=== PATIENT | male | born 1940 | race Caucasian/White ===

== ENCOUNTER 2016-11-10 19:56 | Emergency (ER) | payer MEDICARE ==
[2016-11-10 20:06] VITALS: BP 177/100; PULSE 100; RESP 18; TEMP 97.1
--- NOTE | 2016-11-10 20:41 | ED ---
General Adult HPI - General Chief complaint: Recheck/Abnormal Lab/Rx Stated complaint: Nauseated Time Seen by Provider: 11/10/16 20:15 Source: patient Mode of arrival: ambulatory Limitations: no limitations - History of Present Illness Initial comments: This 76-year-old white male presents with family with the complaint of having some body irritation after eating. He states that he has a long list of foods that he cannot eat and that seemed to upset him. He has tried to avoid these regularly but will sometimes eat something wrong and developed symptoms of feeling somewhat shaky and wobbly. He states that it makes him feel like his legs are weak. He denies any actual abdominal pain, nausea, vomiting. Diarrhea , or fever. He denies any chest pain shortness of breath or arm pain. He will oftentimes take a Gas-X and Tums and this seems to help. These symptoms have been going on for over 30 years. He states that he had a bad attack today. He' s never seen a client delivery specialist. He has never had an EGD. He does relate that he has a history of hiatal hernia which is been present for many years and has not had surgical follow-up for this. He will take Zantac on occasion but has tried Prilosec in the past and this seemed to work fairly well for him. His symptoms started today after eating something and were fairly severe but her improved at this time. He denies any other complaints or modifying factors. - Related Data Previous Rx's Medication Instructions Recorded Omeprazole [PriLOSEC] 40 mg PO Q24H #30 capsule. 11/10/16 Allergies Allergy/AdvReac Type Severity Reaction Status Date / Time garlic Allergy Unknown Verified 11/10/16 20:05 Review of Systems ROS Statement: Those systems with pertinent positive or pertinent negative responses have been documented in the HPI. ROS Other: All systems not noted in ROS Statement are negative. Past Medical History Past Medical History: No Reported History History of Any Multi-Drug Resistant Organisms: None Reported Past Surgical History: No Surgical Hx Reported Past Psychological History: Anxiety, Depression Smoking Status: Never smoker Past Alcohol Use History: None Reported Past Drug Use History: None Reported General Exam - General Exam Comments Initial Comments: GENERAL: The patient is well nourished and well hydrated. VITAL SIGNS: Heart rate, blood pressure, respiratory rate reviewed as recorded in nurse's notes. EYES: Pupils are round and reactive. Extraocular movements are intact. No conjunctival / lid redness or swelling. ENT: No external evidence of injury, swelling, or ecchymosis. Airway is patent. Throat is clear. NECK: Nontender. No swelling or evidence of injury. No subcutaneous emphysema. Trachea is midline. No thyroid mass. HEART: Regular rate and rhythm. Good peripheral pulses. LUNGS/CHEST: Breath sounds clear and equal bilaterally. No rales, rhonchi, or wheezes. No ecchymosis, subcutaneous emphysema, or tenderness. ABDOMEN: Abdomen soft without tenderness. No palpable masses or organomegaly. No peritoneal signs. No abdominal wall swelling or ecchymosis. He relates having a right inguinal hernia which she's had for many years but he does not want me to examine it at this time as it is not bothering him. EXTREMITIES: No extremity tenderness. Normal muscle tone and function. No thoracolumbar tenderness. NEUROLOGIC: Sensation is grossly intact. Cranial nerve exam reveals face is symmetrical, tongue is midline, speech is clear. SKIN: No abrasions or ecchymosis is noted. No induration or masses noted. PSYCHIATRIC: Alert and oriented. Appropriate behavior and judgment. Limitations: no limitations Course Vital Signs 11/10/16 20:01 Temperature 97.1 F L Pulse Rate 100 Respiratory 18 Rate Blood Pressure 177/100 O2 Sat by Pulse 96 Oximetry Medical Decision Making - Medical Decision Making The patient was seen and examined. He is offered a workup in the emergency department but he states that his symptoms have significantly improved right now and he rates them at approximately 1 of 10 in severity. He would prefer to avoid any workup at this time. He is willing to have a prescription for Prilosec and try this medication. This felt that his symptoms very well may be related to an adverse reaction or food ALLERGY reaction.'s also felt as though he may benefit from following up with GI and/or an home health care provider. He has a normal exam currently. He does relate that he has a right inguinal hernia which is thought about getting fixed and would take a referral to a surgeon as well. It is felt as though he is stable for discharge and he leaves in no distress. Disposition Clinical Impression: Food allergy, Inguinal hernia Disposition: HOME SELF-CARE Condition: Good Instructions: Food Allergy (ED) Prescriptions: Omeprazole [PriLOSEC] 40 mg PO Q24H #30 capsule. Referrals: Dennis Lau MD [Primary Care Provider] - 1-2 days Tanya Reyes MD [STAFF PHYSICIAN] - 11/17/16 Sascha Porter MD [STAFF PHYSICIAN] - 11/17/16 Time of Disposition: 20:39
== END 2016-11-10 20:50 | disposition home or self-care (01) ==
LOC: EC 19:56
DX: T78.1XXA Other adverse food reactions, not elsewhere classified, initial encounter (principal); X58.XXXA Exposure to other specified factors, initial encounter; K40.90 Unilateral inguinal hernia, without obstruction or gangrene, not specified as recurrent; K44.9 Diaphragmatic hernia without obstruction or gangrene
CPT/HCPCS: 99283

== ENCOUNTER 2017-06-17 06:54 | Day surgery (SDC) | payer MEDICARE ==
[2017-06-11 12:26] VITALS: BMI 23.7
[~2017-06-17 06:54] MED LIST: DEXAMETHASONE SOD PHOSPHATE 10 MG/ML 1 ML VIAL IV ONE; HEPARIN SODIUM,PORCINE 5,000 UNIT/ML 1 ML VIAL SQ ONE; MIDAZOLAM 2 MG/2 ML VIAL IV PRN; ONDANSETRON 4 MG/2 ML VIAL IVP ONE; SCOPOLAMINE 1.5MG/72HR PATCH TRANSDERM ONE; ceFAZolin 2 GM in SODIUM CHLORIDE 0.9% 100 ML IVPB ONE
[2017-06-17 07:14] VITALS: TEMP 97.8
[2017-06-17] MEDS: LIDOCAINE 1% 20 ML VIAL (10MG/ML) FOR IV START INTRADERMA PRN ×2 (07:45→07:50)
[2017-06-17] MEDS: LACTATED RINGERS 1,000 ML IV SCH ×2 (07:45→07:50)
[2017-06-17] MEDS ORDERED: BUPIVACAINE-EPI 0.5%-1:200,000 10 ML VIAL SQ ONE ×2 (08:31)
[2017-06-17] MEDS ORDERED: SUCCINYLCHOLINE CHLORIDE 100 MG/5 ML SYR IV ONE (08:37)
[2017-06-17] MEDS ORDERED: fentaNYL (PF) 50 MCG/ML 2 ML AMP ONE (08:37)
[2017-06-17] MEDS ORDERED: LIDOCAINE 1% INJ 10MG/ML (20 ML MDV) ONE (08:37)
[2017-06-17] MEDS ORDERED: ROCURONIUM BROMIDE 10 MG/ML 10 ML VIAL IV ONE (08:37)
[2017-06-17] MEDS ORDERED: MIDAZOLAM 2 MG/2 ML VIAL ONE (08:37)
[2017-06-17] MEDS ORDERED: NEOSTIGMINE 1 MG/ML 10 ML VIAL ONE (08:37)
[2017-06-17] MEDS ORDERED: PROPOFOL 10 MG/ML 20 ML VIAL IV ONE (08:37)
[2017-06-17] MEDS ORDERED: GLYCOPYRROLATE 0.2 MG/ML 2 ML VIAL ONE (08:37)
[2017-06-17] MEDS ORDERED: NALOXONE 0.4 MG/ML 1 ML VIAL IV PRN (10:32)
[2017-06-17] MEDS ORDERED: traMADol 50 MG TAB PO PRN (10:32)
[2017-06-17] MEDS ORDERED: TAMSULOSIN 0.4 MG CAP.ER.24H PO STA (10:33)
--- NOTE | 2017-06-17 10:36 | P.OP ---
Date of Procedure: 06/17/17 Procedure(s) Performed: PREOPERATIVE DIAGNOSIS: Right inguinal hernia POSTOPERATIVE DIAGNOSIS: Same PROCEDURE: Laparoscopic repair right inguinal hernia with the da Rose Mary robot assistance with mesh SURGEON: Melba EBL: Minimal ANESTHESIA: General COMPLICATIONS: None OPERATIVE PROCEDURE: Patient was placed in the operating table in the supine position. The patient was placed under general anesthesia. The patient was then placed in lithotomy. The abdomen was prepped and draped in usual sterile fashion. A small curvilinear supraumbilical incision was made. The fascia was retracted anteriorly with [place] forceps. The Veress needle was inserted. The saline drop test was normal. Insufflation took place to 15 mmHg. A 12 mm trocar was then inserted. 2 additional 8 mm trochars were placed in the right upper quadrant and left upper quadrant under visualization. The robotic arms were then brought in and docked into place. The fenestrated bipolar was used in the left arm and the laparoscopic leoncio was utilized in the right arm. A 30 12 mm scope was used in the up position. The peritoneal cavity was inspected. The patient had some adhesive bands between the sigmoid colon and the anterior pelvis which were lysed sharply. The patient had a visible indirect hernia that was moderate to large in size on the right-hand side. There was only a small depression at the internal inguinal ring on the left side. This was felt to not be sizable enough to warrant repair. The peritoneum on the right hand side was incised in a horizontal fashion cephalad to the internal inguinal ring. Following that careful dissection of the preperitoneal space took place. This took place using both electrocautery, sharp dissection but primarily blunt dissection. Visualization of the pubic tubercle and Boston's ligament took place medially. Full dissection took place laterally as well. The hernia sac was fully dissected. Once we had adequate space the 15 x 10 progrip mesh was advanced into the preperitoneal space and flattened out appropriately to cover all potential hernia sites. No sutures were used. The peritoneal defect was then closed using a locking 2-0 VLok suture. A small defect in the peritoneum was closed using a short running 3-0 Vicryl stitch. The hernia sac was tacked anteriorly and medially using the Vlock suture. The pneumoperitoneum was then evacuated. The fascia at the 12 mm site was closed using a [id number] 0 Vicryl stitch. The skin of all 3 sites was closed using a 4-0 Monocryl stitch. Steri-Strips and sterile dressings were applied. DISPOSITION: Stable to recovery room
[2017-06-17] MEDS: HYDROmorphone 0.5 MG/0.5 ML SYRINGE IVP PRN ×3 (10:55→11:00)
[2017-06-17 11:19] VITALS: RESP 18
[2017-06-17] MEDS ORDERED: LACTATED RINGERS 1,000 ML IV ONE (11:21)
[2017-06-17] MEDS ORDERED: traMADol 50 MG TAB PO ONE (12:13)
[2017-06-17 12:55] VITALS: BP 146/75; PULSE 75
== END 2017-06-17 14:13 | disposition home or self-care (01) ==
LOC: OR 06:54
PROVIDERS: ATTEND Surgery
DX: K40.90 Unilateral inguinal hernia, without obstruction or gangrene, not specified as recurrent (principal); K66.0 Peritoneal adhesions (postprocedural) (postinfection)
CPT/HCPCS: 49650; C1781; J2250; J1644; J1100; J2710; J0690; J2405; J2001; J3010; J0330; J2704; J1170

== ENCOUNTER 2018-06-03 22:54 | Emergency (ER) | payer MEDICARE ==
--- NOTE | 2018-06-03 23:47 | ED ---
General Adult HPI - General Chief complaint: Abdominal Pain Stated complaint: constipation Source: patient, family Mode of arrival: wheelchair Limitations: no limitations - History of Present Illness Initial comments: Dictation was produced using [employer] dictation software. please excuse any grammatical, word or spelling errors. Chief Complaint: 78-year-old male with past medical history of constipation and inguinal hernia presents with lack of bowel movement for 4 days. History of Present Illness: Patient states he's been constipated. He has history of constipation. Last bowel movement was 4 days ago. He tried to administer an enema to himself however with no luck. Patient states that he has some pain towards his rectal area. She is not on any daily medications except for Prilosec and Motrin. She states he's been maintaining good hydration. Denies any constitutional symptoms. Denies any diffuse abdominal pain or left lower quadrant pain. No history of diverticulitis. The ROS documented in this emergency department record has been reviewed and confirmed by me. Those systems with pertinent positive or negative responses have been documented in the HPI. All other systems are other negative and/or noncontributory. - Related Data Home Medications Medication Instructions Recorded Confirmed Calcium Carbonate [Tums] 1,000 mg PO TID PRN 06/03/18 06/03/18 Ibuprofen [Motrin Ib] 200 - 400 mg PO Q6H PRN 06/03/18 06/03/18 Omeprazole [PriLOSEC] 20 mg PO DAILY PRN 06/03/18 06/03/18 Psyllium Husk 100% [Metamucil 6 gm PO DAILY 06/03/18 06/03/18 Packet] Simethicone [Gas-X] 125 mg PO QID PRN 06/03/18 06/03/18 Previous Rx's Medication Instructions Recorded Docusate [Colace] 100 mg PO DAILY #30 capsule 06/04/18 Allergies Allergy/AdvReac Type Severity Reaction Status Date / Time garlic Allergy Unknown Verified 06/03/18 23:19 Review of Systems ROS Statement: Those systems with pertinent positive or pertinent negative responses have been documented in the HPI. ROS Other: All systems not noted in ROS Statement are negative. Past Medical History Past Medical History: No Reported History Additional Past Medical History / Comment(s): Ing. Hernia; Hx of kidney stones History of Any Multi-Drug Resistant Organisms: None Reported Past Surgical History: No Surgical Hx Reported Additional Past Surgical History / Comment(s): colonoscopy; Past Anesthesia/Blood Transfusion Reactions: No Reported Reaction Past Psychological History: Anxiety, Depression Smoking Status: Never smoker Past Alcohol Use History: None Reported Past Drug Use History: None Reported - Past Family History Mother Family Medical History: No Reported History General Exam - General Exam Comments Initial Comments: PHYSICAL EXAM: General Impression: Alert and oriented x3, not in acute distress HEENT: Normocephalic atraumatic, extra-ocular movements intact, pupils equal and reactive to light bilaterally, mucous membranes moist. Cardiovascular: Heart regular rate and rhythm, S1&S2 audible, no murmurs, rubs or gallops Chest: Lungs clear to auscultation bilaterally, no rhonchi, no wheeze, no rales Abdomen: Bowel sounds present, abdomen soft, non-tender, non-distended, no organomegaly Musculoskeletal: Pulses present and equal in all extremities, no peripheral edema Motor: Power 5/5 bilaterally, no focal deficits noted Neurological: CN II-XII grossly intact, no focal motor or sensory deficits noted Skin: Intact with no visualized rashes Psych: Normal affect and mood Limitations: no limitations Course Vital Signs 06/03/18 22:56 Temperature 97.5 F L Pulse Rate 87 Respiratory 17 Rate Blood Pressure 179/92 O2 Sat by Pulse 99 Oximetry Medical Decision Making - Medical Decision Making ED course: 78-year-old male presents with constipation. Vital signs upon arrival are within acceptable limits.Laboratory evaluation obtained. CBC, BMP is unremarkable. Acute abdominal series with chest shows no acute processes. Patient was given multiple enemas without any improvement. Rectal exam was performed with palpation of multiple hard stools. Manual rectal disimpaction was performed with removal of impacted stool. Patient then instructed to have bowel movement on the toilet with normal bowel movement. Patient reevaluated and was able to have regular bowel movement. Patient's symptoms are much improved. Patient given prescription for Colace. He is instructed to take Metamucil as well. Patient advised follow-up with primary care physician for outpatient management of constipation. Patient is agreeable. - Lab Data Result diagrams: 06/03/18 23:50 06/03/18 23:50 Lab Results 06/03/18 06/03/18 Range/Units 23:50 23:50 WBC 8.2 (3.8-10.6) k/uL RBC 4.56 (4.30-5.90) m/uL Hgb 15.0 (13.0-17.5) gm/dL Hct 44.9 (39.0-53.0) % MCV 98.5 (80.0-100.0) fL MCH 32.9 (25.0-35.0) pg MCHC 33.5 (31.0-37.0) g/dL RDW 13.4 (11.5-15.5) % Plt Count 156 (150-450) k/uL Neutrophils % 81 % Lymphocytes % 13 % Monocytes % 4 % Eosinophils % 1 % Basophils % 0 % Neutrophils # 6.6 (1.3-7.7) k/uL Lymphocytes # 1.0 (1.0-4.8) k/uL Monocytes # 0.3 (0-1.0) k/uL Eosinophils # 0.1 (0-0.7) k/uL Basophils # 0.0 (0-0.2) k/uL Sodium 138 (137-145) mmol/L Potassium 4.5 (3.5-5.1) mmol/L Chloride 105 (98-107) mmol/L Carbon Dioxide 25 (22-30) mmol/L Anion Gap 8 mmol/L BUN 16 (9-20) mg/dL Creatinine 0.99 (0.66-1.25) mg/dL Est GFR (CKD-EPI)AfAm 83 (>60 ml/min/1.73 sqM) Est GFR (CKD-EPI)NonAf 72 (>60 ml/min/1.73 sqM) Glucose 105 H (74-99) mg/dL Calcium 9.7 (8.4-10.2) mg/dL Magnesium 2.1 (1.6-2.3) mg/dL Disposition Clinical Impression: Constipation Disposition: HOME SELF-CARE Condition: Good Instructions: Constipation (ED) Prescriptions: Docusate [Colace] 100 mg PO DAILY #30 capsule Is patient prescribed a controlled substance at d/c from ED?: No Referrals: Dennis Lau MD [Primary Care Provider] - 1-2 days Time of Disposition: 02:16
[2018-06-03] MEDS ORDERED: MINERAL OIL 133 ML ENEMA RECTAL STA (23:53)
[2018-06-04 00:01] LABS: Basophils % (A) 0 %; Eosinophils # (A) 0.1 k/uL (0-0.7); Eosinophils % (A) 1 %; HCT 44.9 % (39.0-53.0); Lymphocytes % (A) 13 %; MCH 32.9 pg (25.0-35.0); MCHC 33.5 g/dL (31.0-37.0); MCV 98.5 fL (80.0-100.0); Mean Platelet Volume 6.8; Monocytes # (A) 0.3 k/uL (0-1.0); Monocytes % (A) 4 %; Neutrophils # (A) 6.6 k/uL (1.3-7.7); Neutrophils % (A) 81 %; Platelet Count 156 k/uL (150-450); RBC 4.56 m/uL (4.30-5.90); RDW 13.4 % (11.5-15.5); WBC 8.2 k/uL (3.8-10.6)
--- NOTE | 2018-06-04 00:08 | XR ---
EXAMINATION TYPE: XR abdomen acute w cxr DATE OF EXAM: 06/04/2018 COMPARISON: Chest x-ray 05/13/2016 HISTORY: Abdominal pain TECHNIQUE: Chest x-ray with supine and upright abdomen FINDINGS: There is retained fecal material in the large bowel. There is no heart failure nor confluent pneumoni c infiltrate. There is interposition of the hepatic flexure of the colon. There is no evidence of a m ass. There are no pathologic calcifications over the kidneys. Heart size is normal. IMPRESSION: No active cardiopulmonary disease. Chest is stable compared to old exam. Nonacute abdomen.
[2018-06-04 00:11] LABS: Calcium 9.7 mg/dL (8.4-10.2); Magnesium 2.1 mg/dL (1.6-2.3)
[2018-06-04 00:32] LABS: Potassium 4.5 mmol/L (3.5-5.1)
[2018-06-04 02:32] VITALS: BP 137/96; PULSE 97; RESP 16; TEMP 98.4
== END 2018-06-04 02:31 | disposition home or self-care (01) ==
LOC: EC 22:54
DX: K59.00 Constipation, unspecified (principal); Z87.19 Personal history of other diseases of the digestive system; Z87.442 Personal history of urinary calculi; Z79.899 Other long term (current) drug therapy; Z91.018 Allergy to other foods; Z53.8 Procedure and treatment not carried out for other reasons
CPT/HCPCS: 36415; 74022; 80048; 83735; 85025; 99284

== ENCOUNTER → 2019-06-21 | Outpatient (CLI) | payer MEDICARE ==
--- NOTE | 2019-06-21 09:22 | XR ---
EXAMINATION TYPE: XR chest 2V DATE OF EXAM: 06/21/2019 COMPARISON: 05/13/2016 HISTORY: Congestive heart failure, cardiac arrhythmia. Physical examination. TECHNIQUE: Frontal and lateral views of the chest are obtained. FINDINGS: Pulmonary hyperinflation of chronic emphysema is again noted. There is no focal air space o pacity, pleural effusion, or pneumothorax seen. Platelike left basilar atelectasis and/or scarring is chronic and appears improved from the prior. The cardiac silhouette size is within normal limits. S lightly deep right costophrenic angle is similar to the prior. The osseous structures are intact. Mil d to moderate degenerative changes of the thoracic spine. IMPRESSION: Improving left basilar atelectasis and/or scarring and sequela of emphysema is seen on t he prior. No acute process.
[2019-06-21 18:53] LABS: Hemoglobin A1C 5.4 % (4.0-6.0)
[2019-06-21 19:14] LABS: African American GFR (CKD) 93.2 (60.0-200.0); Albumin 4.4 g/dL (3.80-4.90); Albumin/Globulin Ratio 2.1 (1.60-3.17); Anion Gap 11.7 mmol/L (4.00-12.00); BUN/Creat Ratio 14.44 Ratio (12.00-20.00); Calcium 9.4 mg/dL (8.7-10.3); Carbon Dioxide 27.3 mmol/L (21.6-31.8); Globulin 2.1 g/dL (1.6-3.3); Potassium 4.5 mmol/L (3.5-5.5); Total Bilirubin 1.2 mg/dL (0.2-1.2); Total Protein 6.5 g/dL (6.2-8.2)
== END | disposition home or self-care (01) ==
LOC: LABWHC1 08:00
PROVIDERS: ATTEND Family Medicine
DX: J98.11 Atelectasis (principal); I50.9 Heart failure, unspecified
CPT/HCPCS: 36415; 71046; 80053; 83036; 84443; 93005

== ENCOUNTER → 2019-08-03 | Outpatient (CLI) | payer MEDICARE ==
[2019-08-03 10:50] LABS: African American GFR (CKD) >90 (>60 ml/min/1.73 sqM); Blood Urea Nitrogen 14 mg/dL (9-20); Non-African American GFR(CKD) 84 (>60 ml/min/1.73 sqM)
--- NOTE | 2019-08-03 11:52 | CT ---
EXAMINATION TYPE: CT abdomen w con DATE OF EXAM: 08/03/2019 COMPARISON: None HISTORY: Upper Abdominal pain with constipation. CT DLP: 982 mGycm CONTRAST: CT scan of the abdomen is performed with Oral Contrast and with IV Contrast, patient injected with 1 00 mL of Isovue 300. FINDINGS: LUNG BASES-: No visible nodule. No infiltrate. LIVER/GB: No calcified gallstones. No space occupying hepatic lesion. Biliary tree is of normal ca liber. PANCREAS: No inflammation. No distinct mass. SPLEEN: No splenic enlargement. No lesion seen. ADRENALS: No nodule. No thickening. KIDNEYS/BLADDER: No hydronephrosis. No nephrolithiasis. Renal cystic changes noted bilaterally. No solid mass is identified. Urinary bladder grossly unremarkable. BOWEL: Normal appendix. Normal bowel caliber. No inflammation. Severe fecal stasis noted. GENITAL ORGANS: No gross abnormality. LYMPH NODES: No greater than 1cm abdominal or pelvic lymph nodes are appreciated. AORTA: No significant abnormality. OSSEOUS STRUCTURES: No significant abnormality is seen. OTHER: No significant additional abnormality is seen. IMPRESSION: 1. Severe constipation may reflect palpated pseudomass. No distinct mass identified.
== END ==
LOC: RADCTMAIN 09:36
PROVIDERS: ATTEND Family Medicine
DX: R19.00 Intra-abdominal and pelvic swelling, mass and lump, unspecified site (principal)
CPT/HCPCS: 82565; 84520; 74160; 36415; Q9967

== ENCOUNTER 2022-02-25 11:47 | Emergency (ER) | payer MEDICARE ==
[2022-02-25 12:06] VITALS: BP 100/56; PULSE 83; RESP 16; TEMP 97.8
--- NOTE | 2022-02-25 15:31 | ED ---
Back Pain HPI - General Chief Complaint: Back Pain/Injury Stated Complaint: Back pain Time Seen by Provider: 02/25/22 13:38 Source: patient, family, RN notes reviewed Limitations: no limitations - History of Present Illness Initial Comments: This is an 82-year-old male who presents to the emergency department for progressive lower back pain and weakness. This is been present for about one month and continues to get worse. He is with his daughter, who states that they were given an order for x-ray, however she is concerned that he may need more advanced imaging such as an MRI. He has become progressively weak in the bilateral lower extremities, right more than left. He does use a walker for ambulation, but feels that he is still having difficulty walking and it is get ting harder and harder to move around. He now has to manually lift his right leg to move it. He has been to physical therapy and has seen a chiropractor several times regarding these issues, and they all feel that further evaluation is warranted. Denies any saddle anesthesia or loss of bowel/bladder control. He does have some numbness and burning in both legs. He has been taking Ibuprofen, Tylenol, and Tylenol #3 with little relief. Denies any fevers, chills, sore throat, cough, dyspnea, chest pain, palpitations, abdominal pain, nausea, vomiting, diarrhea, or headaches. MD Complaint: back pain Onset/Timin -: month(s) Similar Symptoms Previously: No - Related Data Home Medications Medication Instructions Recorded Confirmed Calcium Carbonate [Tums] 1,000 mg PO TID PRN 06/03/18 06/03/18 Ibuprofen [Motrin Ib] 200 - 400 mg PO Q6H PRN 06/03/18 06/03/18 Omeprazole [PriLOSEC] 20 mg PO DAILY PRN 06/03/18 06/03/18 Psyllium Husk 100% [Metamucil 6 gm PO DAILY 06/03/18 06/03/18 Packet] Simethicone [Gas-X] 125 mg PO QID PRN 06/03/18 06/03/18 Previous Rx's Medication Instructions Recorded Docusate [Colace] 100 mg PO DAILY #30 capsule 06/04/18 HYDROcodone/APAP 5-325MG [[place] 1 tab PO Q6HR PRN 3 Days #12 tab 02/25/22 5-325] Ibuprofen 800 mg PO Q8H PRN #30 tab 02/25/22 Allergies Allergy/AdvReac Type Severity Reaction Status Date / Time garlic Allergy Unknown Verified 02/25/22 12:06 Review of Systems ROS Statement: Those systems with pertinent positive or pertinent negative responses have been documented in the HPI. ROS Other: All systems not noted in ROS Statement are negative. Past Medical History Past Medical History: No Reported History Additional Past Medical History / Comment(s): Ing. Hernia; Hx of kidney stones History of Any Multi-Drug Resistant Organisms: None Reported Past Surgical History: No Surgical Hx Reported Additional Past Surgical History / Comment(s): colonoscopy; Past Anesthesia/Blood Transfusion Reactions: No Reported Reaction Past Psychological History: Anxiety, Depression Past Alcohol Use History: None Reported Past Drug Use History: None Reported - Past Family History Mother Family Medical History: No Reported History General Exam Limitations: no limitations General appearance: alert, in no apparent distress Head exam: Present: atraumatic, normocephalic, normal inspection Respiratory exam: Present: normal lung sounds bilaterally. Absent: respiratory distress, wheezes, rales, rhonchi, stridor Cardiovascular Exam: Present: regular rate, normal rhythm, normal heart sounds. Absent: systolic murmur, diastolic murmur, rubs, gallop, clicks GI/Abdominal exam: Present: soft, normal bowel sounds. Absent: distended, tenderness, guarding, rebound, rigid Expanded Back exam: Absent: saddle anesthesia Neurological exam: Present: alert, oriented X3, CN II-XII intact Expanded Sensory exam: Lower Extremity Light Touch: Normal, Lower Extremity Temperature: Normal, LE 2 Point Discrimination: Normal Motor strength exam: RLE: 2/1, LLE: 4 Psychiatric exam: Present: normal affect, normal mood Skin exam: Present: warm, dry, intact, normal color. Absent: rash Course Vital Signs 02/25/22 12:01 Temperature 97.8 F Pulse Rate 83 Respiratory 16 Rate Blood Pressure 100/56 O2 Sat by Pulse 98 Oximetry Medical Decision Making - Medical Decision Making This is an 82 year old male who presents to the emergency department for low back pain. Given the progressive weakness, a CT scan was obtained as opposed to an x-ray. This revealed L3 collapse with transverse fracture and retropulsion of a portion of L3 causing severe spinal stenosis. There is also an adjacent paraspinal hematoma and fat stranding at the fracture level. Patient has notable weakness in the right leg and must manually lift it to move it. He is otherwise neurologically intact with full sensation and no saddle anesthesia or loss of bowel/bladder control to suggest cauda equina syndrome. Case discussed with Dr. Pena, orthopedics. He advised that because symptoms have been relatively stable and there are no acute neurological deficits or signs of cauda equina syndrome, that the patient can be discharged home with outpatient follow up with Dr. Velázquez, orthopedic spine surgeon. Patient and his daughter are comfortable going home. He lives with his children and his and has plenty of help at home. Ibuprofen 800mg and 3 day course of [place] provided for pain. His daughter will contact Dr. Velázquez's office in the morning. Return precautions reviewed in depth, the patient is instructed to return to the emergency department with any new, worsening, or concerning symptoms. Patient verbalized understanding. This case was discussed in detail with the attending ED physician. Presentation, findings, and treatment plan discussed in detail as well. - Radiology Data Radiology results: report reviewed, image reviewed Disposition Clinical Impression: L3 vertebral fracture Disposition: HOME SELF-CARE Instructions (If sedation given, give patient instructions): Lumbar Spinal Stenosis (ED) Additional Instructions: Return to the emergency department with any new, worsening, or concerning symptoms. Contact Dr. Velázquez, orthopedics, for a follow-up appointment tomorrow. Take Ibuprofen, 800mg, every 8 hours as needed for pain. If you decide to take the [place], do not take the Tylenol with codeine. Prescriptions: Ibuprofen 800 mg PO Q8H PRN #30 tab PRN Reason: Pain HYDROcodone/APAP 5-325MG [[place] 5-325] 1 tab PO Q6HR PRN 3 Days #12 tab PRN Reason: Pain Is patient prescribed a controlled substance at d/c from ED?: Yes If prescribed controlled substance>3 days was MAPS reviewed?: Prescribed <3 Days Referrals: Iqra Lee MD [Primary Care Provider] - 1-2 days Katarina Velázquez DO [Doctor of Osteopathic Medicine] - 1-2 days
--- NOTE | 2022-02-25 15:44 | CT ---
EXAMINATION TYPE: CT lumbar spine wo con, CT sacrum wo con DATE OF EXAM: 02/25/2022 3:15 PM COMPARISON: CT dated 08/03/2019 HISTORY: back pain CT DLP: 919.9 (accession [id number]), 564.9 (accession [id number]) mGycm Automated exposure control for dose reduction was used. Technique: Unenhanced CT of the lumbar spine and the sacrum was performed. Bone and soft tissue wind ow settings are submitted as well as coronal and sagittal reconstructions. FINDINGS: L3 vertebral body collapse with mainly transverse fracture involving the inferior aspect of the verte bral body, mild sclerotic changes and central height reduction of about 62%. There is retropulsion of the inferior aspect of the posterior margin of L3 vertebral body into the spinal canal, causing dorothy re spinal canal stenosis. No obvious extension of the fracture into the pedicles or the posterior arch of L3. Adjacent paraspin al hematoma and fat stranding seen at the fracture level. Mild retrolisthesis of L5 over S1. No other definite vertebral body collapse or acute fracture. Osteopenia. Multilevel opposing endplate osteoph ytosis and facet osteoarthropathy. L1-L2: Slightly degenerated disc without significant disc herniation or protrusion. No significant ce ntral spinal canal stenosis or neural foraminal stenosis. L2-L3: Mild diffuse posterior disc bulge with posterior osteophytosis and facet osteoarthropathy, cau sing no significant central spinal canal stenosis or significant neural foraminal stenosis. L3-L4: Spinal canal stenosis secondary to the fractured L3 vertebral body, associated with moderate r ight and mild left neuroforaminal stenosis. L4-L5: Diffuse posterior disc bulge associated with posterior osteophytosis, facet osteoarthropathy, mild ligamentum flavum hypertrophy and decreased AP dimension of the spinal canal, causing moderate t o severe central spinal canal stenosis and moderate left neuroforaminal stenosis. L5-S1: Degenerated disc with focal central posterior disc protrusion, associated with bilateral facet osteoarthropathy and posterior osteophytosis, causing mild central spinal canal stenosis without sig nificant neural foraminal stenosis. Questionable indentation/compression of S1 nerve roots in their l ateral recesses. Scattered arterial atherosclerotic calcification. Multiple bilateral renal cysts without gross suspic ious feature, suboptimally assessed. Atrophic pancreas. Infrarenal abdominal aortic aneurysm measurin g up to 3.5 cm. Large fecal material within the rectum with fecal loading of the visualized portion o f the colon. Mild degenerative changes of the sacroiliac joints. No definite acute sacral fracture id entified. IMPRESSION: L3 vertebral body collapse as detailed above, likely acute. Recommend clinical correlation and spine surgical consultation. No other definite lumbar vertebral or sacral fracture identified. Advanced degenerative changes of th e lumbar spine and other findings as detailed above.
[2022-02-25] MEDS ORDERED: HYDROcodone/APAP 5-325MG 1 EACH TAB PO STA (18:02)
[2022-02-25] MEDS ORDERED: IBUPROFEN 600 MG STARTER PACK 4 TAB BTL PO STA (18:02)
[2022-02-25] MEDS ORDERED: IBUPROFEN 800 MG TAB PO STA (18:02)
== END 2022-02-25 19:06 | disposition home or self-care (01) ==
LOC: EC 11:47
DX: S32.039A Unspecified fracture of third lumbar vertebra, initial encounter for closed fracture (principal); Z91.018 Allergy to other foods; X58.XXXA Exposure to other specified factors, initial encounter
CPT/HCPCS: 72131; 72192

== ENCOUNTER → 2022-07-16 | Outpatient (CLI) | payer MEDICARE, OTHER ==
[2022-07-16 13:20] VITALS: BP 138/76; PULSE 83; RESP 18; TEMP 97.8
--- NOTE | 2022-07-16 14:42 | P.PAINPG ---
PQRS Measure Charge Sheet Comment: HISTORY OF PRESENT ILLNESS: 82 yr old wheelchair bound male w son/ daughter at side as a referral from Dr Velázquez presents today w severe and chronic R sided LBP secondary to DDD, spinal stenosis, facet arthropathy without myelopathy for evaluation. Pt states pain level is at 8/10 in intensity, constant, localized in the right lower lumbar spine, sharp in character w shooting pain towards the R hip and RLE. Pain is provoked by bending. lifting. Pain is alleviated by medications (ibuprofen, Tylenol), topicals, injections in the past, ice, heat, PT 5 weeks which he is currently in, chiropractic treatments which worsened pain, massage therapy integrated with PT, laying supine and rest. PMH: HTN, OA PSH: Nephrolithiasis, Hernia Repair SH: Negative x 3 FH: DM All: See list Meds: See list REVIEW OF ORGAN SYSTEMS: CONSTITUTIONAL: No fevers or chills. No recent weight loss. NEUROLOGICAL: + numbness and tingling along the distal extremities. No seizure disorders or headaches. MUSCULOSKELETAL: + pain PSYCHIATRIC: Denies current depression or suicidal thoughts. Physical Examinations : Constitutional : Cooperative , not in acute distress . Neurologic : Cranial nerve II to XII intact. No focal neurological deficits. Psychiatric : alert & oriented x 3. Matching mood & appropriate affect. Judgment & insight intact. Musculoskeletal : Cervical Spine Motor strength in the deltoid and biceps: Normal right side. Normal Left side Motor strength biceps and the wrist extensors: Normal right side . Normal left side Motor strength in the triceps muscle: Normal right side. Normal left side Deep tendon reflexes: Normal at the biceps. Normal at Brachioradialis. Normal at triceps Vertebral body tenderness to deep palpation over Cervical facet loading test: positive bilaterally Spurling test: positive bilaterally Neck distraction test: positive bilaterally Kim sign: positive bilaterally Lumbar spine Motor strength lower extremities ,thigh and legs 5/5 Right side , 5/5 Left side Deep tendon reflexes : Normal Knee Jerk. Normal Ankle Jerk Vertebral body tenderness over L3 Lumbar facet Loading Test: positive Right / positive Left Range of motion of the lumbar spine Flexion 30 degrees, extension 10 degrees Straight Leg Raise test: Left/ Right positive at degree Reyna test: positive right / positive left. Severe tenderness over the Sacroiliac joint on the Right / Left sides Gaenslen test: positive bilaterally Seated flexion test: positive bilaterally. Sacral spine : Severe tenderness over the Sacroiliac joint: right side / left side Range of motion: Flexion of the lumbar spine <60 degrees Range of motion: Extension of the lumbar spine <20 degrees Gaenslen's Test positive Aravind's Test positive Reyna test: positive right side / left side Thigh Thrust Test Sacral Thrust Test Imaging: MRI of the lumbar spine from 03/17/22 reviewed Assessment/ Plan : Lumbar DDD, lumbar stenosis Recommendation of ROYCE L3-L4. May need a series of injections, up to 3 within a 6 mo period, for optimal pain relief. Risks, benefits of procedure discussed and patient verbalized understanding. Admits to aspirin or anti- coagulant use or medical history of diabetes. Protocol for discontinuation/ continuation of medications janine procedure discussed. All questions answered. I have spent greater than 30 minutes on patient care today. Dr Ozuna was available by phone for the evaluation of this patient. The time was used to review the medical records including relevant urine studies and Prescription history (MAPs), review of the available imaging, evaluation and examination of the patient, coordination of care with the medical staff and if applicable referring physicians, as well as creation of the medical record PQRS Narrative: Smoking Status Never smoker Home Medications: Ambulatory Orders Calcium Carbonate [Tums] 1,000 mg PO TID PRN 06/03/18 Ibuprofen [Motrin Ib] 200 - 400 mg PO Q6H PRN 06/03/18 Omeprazole [PriLOSEC] 20 mg PO DAILY PRN 06/03/18 Psyllium Husk 100% [Metamucil Packet] 6 gm PO DAILY 06/03/18 Simethicone [Gas-X] 125 mg PO QID PRN 06/03/18 Docusate [Colace] 100 mg PO DAILY #30 capsule 06/04/18 HYDROcodone/APAP 5-325MG [Ovid 5-325] 1 tab PO Q6HR PRN 3 Days #12 tab 02/25/22 Ibuprofen 800 mg PO Q8H PRN #30 tab 02/25/22 Controlled Substance Measures - Controlled Substance Measures Is patient prescribed a controlled substance at discharge?: No
== END ==
LOC: PNWHC3 12:41
PROVIDERS: ATTEND Specialist
DX: M51.36 Other intervertebral disc degeneration, lumbar region (principal); M48.061 Spinal stenosis, lumbar region without neurogenic claudication; Z79.01 Long term (current) use of anticoagulants; E11.9 Type 2 diabetes mellitus without complications; Z91.018 Allergy to other foods; Z79.4 Long term (current) use of insulin
CPT/HCPCS: 99211

== ENCOUNTER 2022-08-14 12:13 | Day surgery (SDC) | payer MEDICARE, OTHER ==
[~2022-08-14 12:13] MED LIST changes: -DEXAMETHASONE SOD PHOSPHATE 10 MG/ML 1 ML VIAL IV ONE; -HEPARIN SODIUM,PORCINE 5,000 UNIT/ML 1 ML VIAL SQ ONE; +LACTATED RINGERS 1,000 ML IV SCH; -MIDAZOLAM 2 MG/2 ML VIAL IV PRN; -ONDANSETRON 4 MG/2 ML VIAL IVP ONE; -SCOPOLAMINE 1.5MG/72HR PATCH TRANSDERM ONE; -ceFAZolin 2 GM in SODIUM CHLORIDE 0.9% 100 ML IVPB ONE
[2022-08-14 13:19] VITALS: TEMP 97.8
[2022-08-14] MEDS ORDERED: TRIAMCINOLONE ACETONIDE 40 MG/ML 1 ML VIAL ONE (13:30)
[2022-08-14] MEDS ORDERED: ROPIVACAINE 5 MG/ML 20 ML AMPULE ONE (13:30)
[2022-08-14] MEDS ORDERED: IOPAMIDOL M200 10 ML VIAL ONE (13:30)
--- NOTE | 2022-08-14 13:51 | P.PCN ---
Date of Procedure: 08/14/22 Surgeon: Franny Del Rio Pathology: none sent Condition: stable Disposition: PACU Description of Procedure: PREOPERATIVE DIAGNOSIS: 1-Lumbar radiculopathy 2- Lumber Degenerative Disc Diseases. POSTOPERATIVE DIAGNOSIS: 1-Lumbar radiculopathy. 2-Lumbar Degenerative Disc Diseases PROCEDURE 1. Lumbar epidural steroid injection under fluoroscopic guidance at the L3-4 level in the left paramedian approach. 2. Lumbar epidurogram. ANESTHESIA: Local only with lidocaine 1% EBL: Minimal PROCEDURE INDICATION: The patient with low back pain and radiculitis symptoms unresponsive to conservative treatment. Fluoroscopy was used to optimize visualization of the needle placement and to maximize safety. PROCEDURE DESCRIPTION / TECHNIQUE: The patient was seen and identified in the preoperative area. Risks, benefits, complications including but not limited to infections ,bleeding ,allergic reaction to the medications ,nerve damage and not complete pain relief , and alternatives were discussed with the patient. The patient agreed to proceed with the procedure and signed the consent. IV was started, and vital signs were stable. Patient was taken to the OR and time out was completed. The patient was placed in the prone position on procedure table and a pillow was placed under the abdomen to reduce lumbar lordosis. The lumbosacral area was prepped and draped in the usual sterile fashion with ChloraPrep.Patient was closely monitored during the procedure. Conscious sedation was used during the procedure to decrease patients anxiety. Vital signs were monitered during the entire pro cedure. Using anterior-posterior fluoroscopy, the L3-4 interlaminar space was identified and the skin over this site was marked and then infiltrated with 1% lidocaine subcutaneously. Subsequently, a 20-gauge Tuohy epidural needle was inserted and advanced toward the epidural space using the Loss of resistance to air technique and guided by AP and lateral fluoroscopy. The correct needle position in the epidural space was verified with the injection of 1 mL of the water soluble contrast dye Omnipaque 180 contrast and observing an excellent epidurogram with the epidural spread of the dye, after negative aspiration for blood and CSF and in the absence of paresthesias. Again after negative aspiration, a 8 ml mixture containing 40 mg of Kenalog and 3 ml of preservative free Normal Saline, and 1 ml of preservative free Ropivacaine 0.5% solution was injected and a washout of epidurogram was seen. Needle was withdrawn intact, skin was cleansed, and bandages were applied. patient tolerated procedure well and was transferred to PACU in stable condition.A copy of the needle placement picture was saved to the fluoroscopy machine. This epidural was difficult to place due to the patient's severe spinal spondylosis. COMPLICATIONS: None DISPOSITION / PLANS: The patient was placed in a supine position and transferred to the recovery area in a stable condition for observation. There was no evidence of lower extremity motor or sensory deficit after the procedure. Patient was discharged from the recovery room after meeting discharge criteria. Home discharge instructions were given to the patient by the staff. The patient was reexamined prior to discharge. The patient will schedule a follow up in the clinic in 2-4 weeks. Sedation time:[id number]
[2022-08-14] MEDS ORDERED: BACITRACIN OINT 1 EACH PACKET TOPICAL ONE (14:30)
--- NOTE | 2022-08-14 14:37 | FL ---
Fluoroscopy INDICATION: Pain FINDINGS: Fluoroscopy time: 48 seconds. Images obtained: 2. IMPRESSIONS: 1. Documentation of fluoroscopy.
[2022-08-14 14:43] VITALS: BP 144/80; PULSE 78; RESP 20
== END 2022-08-14 14:46 | disposition home or self-care (01) ==
LOC: ORPAIN 12:13
PROVIDERS: ATTEND Anesthesiology
DX: M51.16 Intervertebral disc disorders with radiculopathy, lumbar region (principal); I10 Essential (primary) hypertension; M19.90 Unspecified osteoarthritis, unspecified site; Z87.442 Personal history of urinary calculi; Z91.018 Allergy to other foods
CPT/HCPCS: 62323; J3301; Q9966; J2795

== ENCOUNTER → 2022-09-03 | Outpatient (CLI) | payer MEDICARE, OTHER ==
[2022-09-03 13:53] VITALS: BP 130/69; PULSE 74; RESP 18; TEMP 97.7
--- NOTE | 2022-09-03 15:34 | P.PAINPG ---
PQRS Measure Charge Sheet Comment: A 82 yr old male w daughter at side with a history of severe and chronic low back pain x several years (but worst in the last 8 mo) secondary to lumbar DDD and spondylosis with facet arthropathy without myelopathy presents today for evaluation s/p ROYCE L3-L4. Pt states he experienced 90 % pain relief x 3 days s/p procedure. Pain level is currently at 6 /10 in intensity, constant, localized in the lower lumbar spine, achy shooting towards the BL hips occasionally. Pain is provoked by standing/ walking for periods of 5 min, bending, twisting, lifting, climbing steps. Pain is alleviated with PT x 8 wks which he is currently in (he is paying out of pocket), massage integrated in PT, chiropractic treatments x 6 wks in Mar-May 2022, heat, medications (Ibuprofen, Tylenol Arthritis), use of a wheelchair for ambulation, repositioning and rest. Interventional pain procedures completed include ROYCE L3-L4 x1 Patient is currently on Ibuprofen, Tylenol Arthritis Patient denies any side effects of the medication(s), denies excessive drowsiness or sleepiness, denies suicidal ideation and reports that the current pain medication is helping to control the pain and improve activities of daily living. Patient denies any motor or sensory deficits. Patient denies any fever or night sweats, denies any change in the bowel movements or urination. Physical Examination: -Constitutional: Cooperative. Not in acute distress . - Neurologic: Cranial nerve II to XII intact. No focal neurological deficits. - Psychatric: Alert & oriented x 3. Matching mood & appropriate affect. Judgment and insight intact. - Musculoskeletal: Cervical spine: Muscle bulk/ tone/ strength in the bilateral upper extremities normal Vertebral body tenderness to palpation over Spurling test positive Distraction test positive Facet loading test positive Thoracic spine Muscle bulk / tone/ strength in the bilateral paraspinal muscles normal Vertebral body tender to palpation over Facet loading test positive Lumbar spine: Motor bulk/ tone/ strength lower extremities , thigh and legs : 5/5 Deep tendon reflexes : Normal Knee Jerk. Normal Ankle Jerk . Vertebral body tenderness to palpation over Lumbar Facet Loading Test positive TTP over BL L4-L5, L5-S1 facets Straight Leg Raise: positive at 30 degrees right side/ left side Gaenslen's Test positive Sacral spine : Severe tenderness over the Sacroiliac joint: right side / left side Range of motion: Flexion of the lumbar spine <60 degrees Range of motion: Extension of the lumbar spine <20 degrees Gaenslen's Test positive Reyna test: positive right side / left side Thigh Thrust Test Sacral Thrust Test Assessment and plan: Chronic low back pain secondary to lumbar degenerative disc disease, s pondylosis with facet arthropathy without myelopathy Recommendation of BL facet blocks of the medial branches L4-L5, L5-S1 #1. May need a series of injections, up until RFA, for optimal pain relief. Risks, benefits of procedure discussed and pt verbalized understanding. Denies anticoagulant use or medical history of diabetes. All patient questions answered I have spent less than 30 minutes on patient care today. Dr Ozuna was available by phone for the evaluation of this patient. The time was used to review the medical records including relevant urine studies and Prescription history (MAPs), review of the available imaging, evaluation and examination of the patient, coordination of care with the medical staff and if applicable referring physicians, as well as creation of the medical record PQRS Narrative: Smoking Status Never smoker Hx Alcohol Use (MH) No Home Medications: Ambulatory Orders Ibuprofen [Motrin Ib] 600 mg PO Q6H PRN 06/03/18 Simethicone [Gas-X] 125 mg PO QID PRN 06/03/18 Acetaminophen [Tylenol Arthritis] 1,300 mg PO HS 08/12/22 Donepezil HCl [Aricept] 5 mg PO DAILY 08/12/22 Magnesium 250 mg PO HS 08/12/22 Unk Multi Vitamin 1 tab PO DAILY 08/12/22 Controlled Substance Measures - Controlled Substance Measures Is patient prescribed a controlled substance at discharge?: No
== END ==
LOC: PNWHC3 13:09
PROVIDERS: ATTEND Specialist
DX: M47.816 Spondylosis without myelopathy or radiculopathy, lumbar region (principal); M51.36 Other intervertebral disc degeneration, lumbar region; G89.29 Other chronic pain; Z91.018 Allergy to other foods
CPT/HCPCS: 99211

== ENCOUNTER 2022-09-16 08:49 | Day surgery (SDC) | payer MEDICARE, OTHER ==
[2022-09-16 10:04] VITALS: TEMP 97.9
[2022-09-16] MEDS ORDERED: ROPIVACAINE 5 MG/ML 20 ML AMPULE ONE (10:06)
[2022-09-16] MEDS ORDERED: MIDAZOLAM 2 MG/2 ML VIAL ONE (10:06)
[2022-09-16] MEDS ORDERED: methylPREDNISolone ACETATE 40 MG/ML 1 ML VIAL ONE (10:06)
--- NOTE | 2022-09-16 10:27 | P.PCN ---
Date of Procedure: 09/16/22 Procedure(s) Performed: PREOPERATIVE DIAGNOSIS : 1- Lumbar spondylosis with Facet Arthropathy without myelopathy . 2- Lumber degenerative disc disease POSTOPERATIVE DIAGNOSIS: 1- Lumbar spondylosis with Facet Arthropathy without myelopathy . 2- Lumber degenerative disc disease PROCEDURE: Diagnostic bilateral L3 , L4 , and L5 medial branch block under fluoroscopy guidance(fluoroscopy images available in the radiology Department ) ( To target the facet joint between bilateral L4-5 , and L5-S1 ) ANESTHESIA:,moderate sedation with intravenous Versed 1 mg .( sedations started at 10:11, end at 10:24 ) EBL: Minimal COMPLICATION: None PROCEDURE INDICATION: Chronic low back pain secondary to Facet arthropathy unresponsive to conservative treatment. PROCEDURE DESCRIPTION: the patient was seen and identified in the preop holding area , risks and benefits and possible complications of the procedure and alternative were discussed with the patient, and the patient agreed to proceed with the procedure and signed the consent and vital signs monitored during the procedure and fluoroscopy was used to maximize the benefit and accuracy of the needle placement, and sedation was given to decrease patient anxiety, patient was taken to the procedure room and placed in prone position vital signs monitored in the back prepped with chlorhexidine X3 then under strict sterile technique using a right oblique fluoroscopy ,the junction of the transverse process and the superior articulating process of the right L3 , L4 , and L5 vertebra which corresponding to the fluoroscopy image of the eye of the Marcelo dog on the block side for the medial branches and subsequently , after local infiltration of skin and subcu tissuies with Ropivacaine 0.5 % , one mL at each level ,then 22-gauge Quincke-type needles , 3 needle was used , each one of them placed at the junction of the base of the transverse process and the superior articular process at the appropriate level, and the needle was advanced until the periosteum contacted, needle placement confirmed with AP oblique and lateral view and after appropriate needle placement confirmed, and after negative aspiration for heme and CSF and there was no paresthesia 1-1/2 mL of Ropivacaine 0.5% mixed with 20 mg Depo-Medrol , then half mL injected at each level after negative aspiration the needle subsequently removed and the same procedure repeated for the left side at left side at L3 , L4 and L5 levels. At the end of the procedure and the needles removed and a bandage applied after the skin was cleaned the cleaning solution patient taken to recovery room in stable condition and monitors in the recovery room for 20-30 minutes and discharged home in stable condition after discharge criteria met and patient will follow up with the pain clinic in 2-4 weeks
[2022-09-16] MEDS ORDERED: IV FLUID CONTINUATION 1,000 ML IV ONE (10:30)
[2022-09-16 10:33] VITALS: PULSE 82
[2022-09-16 10:49] VITALS: BP 123/76; RESP 16
--- NOTE | 2022-09-16 11:22 | FL ---
Intraoperative/procedural fluoroscopic services were provided for bilateral lumbar facet block. Total fluoroscopy time is 9 seconds with a total of 4 submitted images to PACS. Please see the operative n ote for further details.
== END 2022-09-16 11:21 | disposition home or self-care (01) ==
LOC: ORPAIN 08:49
PROVIDERS: ATTEND Specialist
DX: M47.816 Spondylosis without myelopathy or radiculopathy, lumbar region (principal); M51.36 Other intervertebral disc degeneration, lumbar region; G89.29 Other chronic pain; Z88.5 Allergy status to narcotic agent
CPT/HCPCS: 64493; 64494; 99152; J2250; J1030; J2795

== ENCOUNTER → 2022-10-02 | Outpatient (CLI) | payer MEDICARE, OTHER ==
[2022-10-02 10:27] VITALS: BP 170/78; PULSE 78; RESP 18; TEMP 98
--- NOTE | 2022-10-02 14:59 | P.PAINPG ---
PQRS Measure Charge Sheet Comment: A 82 yr old male w 2 sons at side with a history of severe and chronic LBP secondary to lumbar DDD and spondylosis with facet arthropathy without myelopathy presents today for evaluation s/p BL RFA L3-L5. Pt states he experienced 0 % pain relief s/p procedure. Pain level is provoked at 6/10 in intensity, constant, localized in the lumbar spine, sharp in character w shooting towards the BLEs. Pain is provoked by reaching, lifting and walking for periods of 10 min or more. Pain is alleviated with PT x 12 wks in Aug 2022, massage integrated w PT, heat, meds (Tyl, Ibu), topicals, repositioning, laying supine and rest. Interventional pain procedures completed include BL RFA L3-L5, ROYCE L3-L4 Patient is currently on Tyl, Ibu, Biofreeze gel Patient denies any side effects of the medication(s), denies excessive drowsiness or sleepiness, denies suicidal ideation and reports that the current pain medication is helping to control the pain and improve activities of daily living. Patient denies any motor or sensory deficits. Patient denies any fever or night sweats, denies any change in the bowel movements or urination. Physical Examination: -Constitutional: Cooperative. Not in acute distress . - Neurologic: Cranial nerve II to XII intact. No focal neurological deficits. - Psychatric: Alert & oriented x 3. Matching mood & appropriate affect. Judgment and insight intact. - Musculoskeletal: Cervical spine: Muscle bulk/ tone/ strength in the bilateral upper extremities normal Vertebral body tenderness to palpation over Spurling test positive Distraction test positive Facet loading test positive Thoracic spine Muscle bulk / tone/ strength in the bilateral paraspinal muscles normal Vertebral body tender to palpation over Facet loading test positive Lumbar spine: Motor bulk/ tone/ strength lower extremities , thigh and legs : 5/5 Deep tendon reflexes : Normal Knee Jerk. Normal Ankle Jerk . Vertebral body tenderness to palpation over Lumbar Facet Loading Test positive BL paraspinal TTP over L1-S1 Straight Leg Raise: positive at 30 degrees right side/ left side Gaenslen's Test positive Sacral spine : Severe tenderness over the Sacroiliac joint: right side / left side Range of motion: Flexion of the lumbar spine <60 degrees Range of motion: Extension of the lumbar spine <20 degrees Gaenslen's Test positive Reyna test: positive right side / left side Thigh Thrust Test Sacral Thrust Test Assessment and plan: Chronic LBP secondary to lumbar DDD, stenosis, spondylosis with facet arthropathy without myelopathy Recommendation of PT x 6 wks re: M51.36. May return to clinic in 6 wks for a re evaluation. Family agreeable to placement of SCS after review of video. Script for behavioral health provided. Recommendation of BL TPIs L1-S1. May need a series of injections for optimal pain relief. Risks, benefits of procedure discussed and patient verbalized understanding. Admits to anticoagulants use and denies medical history of diabetes. Protocol for discontinuation/continuation of medications surrounding procedure discussed. All patient questions answered I have spent less than 30 minutes on patient care today. Dr Ozuna was available by phone for the evaluation of this patient. The time was used to review the medical records including relevant urine studies and Prescription history (MAPs), review of the available imaging, evaluation and examination of the patient, coordination of care with the medical staff and if applicable referring physicians, as well as creation of the medical record - Pain Location Bilateral Lower Back Non-Pharmacological Interventions: Heat, Inactivity, Massage, Physical Therapy Pharmacological Interventions: Block, Epidural, PRN Medication, Topical Medication PQRS Narrative: Smoking Status Never smoker Hx Alcohol Use (MH) No Home Medications: Ambulatory Orders Ibuprofen [Motrin Ib] 600 mg PO Q6H PRN 06/03/18 Simethicone [Gas-X] 125 mg PO QID PRN 06/03/18 Acetaminophen [Tylenol Arthritis] 1,300 mg PO HS 08/12/22 Donepezil HCl [Aricept] 5 mg PO DAILY 08/12/22 Magnesium 250 mg PO HS 08/12/22 Unk Multi Vitamin 1 tab PO DAILY 08/12/22 Controlled Substance Measures - Controlled Substance Measures Is patient prescribed a controlled substance at discharge?: No
== END | disposition home or self-care (01) ==
LOC: PNWHC3 09:56
PROVIDERS: ATTEND Specialist
DX: M47.812 Spondylosis without myelopathy or radiculopathy, cervical region (principal); G89.4 Chronic pain syndrome; M47.26 Other spondylosis with radiculopathy, lumbar region; M48.00 Spinal stenosis, site unspecified; M54.50 Low back pain, unspecified; Z91.018 Allergy to other foods
CPT/HCPCS: 99211

== ENCOUNTER → 2022-11-20 | Outpatient (CLI) | payer MEDICARE, OTHER ==
[2022-11-20 14:30] VITALS: BP 151/75; PULSE 63; RESP 16
--- NOTE | 2022-11-20 14:32 | P.PAINPG ---
PQRS Measure Charge Sheet Comment: A 82 yr old male w son & daughter at side with a history of severe and chronic LBP secondary to lumbar DDD and spondylosis with facet arthropathy without myelopathy presents today for evaluation s/p Lumbar TPIs. Pt states he experienced 20% pain relief s/p procedure. Pain level is provoked at 7 /10 in intensity, constant, localized in the lumbar spine, sharp in character w shooting towards the RLE. Pain is provoked by weight bearing activity. Pain is alleviated with PT x 2 wks which he is currently in, home stretching regimen, massage therapy home visits, use of a wheelchair for ambulation, chiropractic treatments 2 yrs ago, heat, ice, medications (Tyl, Ibu), topicals, sitting, reclining and rest. Interventional pain procedures completed include Lumbar TPIs, BL RFA L3-L5, ROYCE L3-L4 x1 Patient is currently on Tyl, Ibu Patient denies any side effects of the medication(s), denies excessive drowsi ness or sleepiness, denies suicidal ideation and reports that the current pain medication is helping to control the pain and improve activities of daily living. Patient denies any motor or sensory deficits. Patient denies any fever or night sweats, denies any change in the bowel movements or urination. Physical Examination: -Constitutional: Cooperative. Not in acute distress . - Neurologic: Cranial nerve II to XII intact. No focal neurological deficits. - Psychatric: Alert & oriented x 3. Matching mood & appropriate affect. Judgment and insight intact. - Musculoskeletal: Cervical spine: Muscle bulk/ tone/ strength in the bilateral upper extremities normal Vertebral body tenderness to palpation over Spurling test positive Distraction test positive Facet loading test positive TTP Thoracic spine Muscle bulk / tone/ strength in the bilateral paraspinal muscles normal Vertebral body tender to palpation over Facet loading test positive TTP Lumbar spine: Motor bulk/ tone/ strength lower extremities , thigh and legs : 5/5 Deep tendon reflexes : Normal Knee Jerk. Normal Ankle Jerk . Vertebral body tenderness to palpation over L3, L4, L5 Lumbar Facet Loading Test positive Straight Leg Raise: positive at 30 degrees right side/ left side Gaenslen's Test positive Sacral spine : Severe tenderness over the Sacroiliac joint: right side / left side Range of motion: Flexion of the lumbar spine <60 degrees Range of motion: Extension of the lumbar spine <20 degrees Gaenslen's Test positive right side / left side Reyna test: positive right side / left side Thigh Thrust Test positive right side / left side Sacral Thrust Test positive right side / left side Assessment and plan: Chronic LBP secondary to lumbar DDD, spondylosis with facet arthropathy without myelopathy Recommendation of SCS trial. Obtained behavioral health eval and will schedule appt for clearance. Risks, benefits of procedure discussed and pt verbalized understanding. Admits to anticoagulant use or medical history of diabetes. Protocol for discontinuation/ continuation of medications janine procedure discussed. All questions answered. I have spent less than 30 minutes on patient care today. Dr Ozuna was available by phone for the evaluation of this patient. The time was used to review the medical records including relevant urine studies and Prescription history (MAPs), review of the available imaging, evaluation and examination of the patient, coordination of care with the medical staff and if applicable referring physicians, as well as creation of the medical record PQRS Narrative: Smoking Status Never smoker Hx Alcohol Use (MH) No Home Medications: Ambulatory Orders Ibuprofen [Motrin Ib] 600 mg PO Q6H PRN 06/03/18 Simethicone [Gas-X] 125 mg PO QID PRN 06/03/18 Acetaminophen [Tylenol Arthritis] 1,300 mg PO HS 08/12/22 Donepezil HCl [Aricept] 5 mg PO QAM 08/12/22 Magnesium 250 mg PO HS 08/12/22 Unk Multi Vitamin 1 tab PO DAILY 08/12/22 Controlled Substance Measures - Controlled Substance Measures Is patient prescribed a controlled substance at discharge?: No
== END ==
LOC: PNWHC3 13:19
PROVIDERS: ATTEND Specialist
DX: M51.36 Other intervertebral disc degeneration, lumbar region (principal); M47.816 Spondylosis without myelopathy or radiculopathy, lumbar region; G89.29 Other chronic pain; Z91.018 Allergy to other foods
CPT/HCPCS: 99211

== ENCOUNTER → 2023-01-01 | Outpatient (CLI) | payer MEDICARE, OTHER ==
--- NOTE | 2023-01-01 15:00 | P.PAINPG ---
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 Pain level is provoked at 8/10 in intensity, constant, localized in the lumbar spine, burning in character w shooting towards the BLEs. Pain is provoked by lifting, bending. Pain is alleviated with PT integrated w massage x 5 wks which he is currently in, heat, ice, medications, topical, reclining and rest. Pt completed behavioral health eval and is cleared for SCS trial. Interventional pain procedures completed include ROYCE L3-L4, BL Lumbar TPIs Patient is currently on Tyl, Ibu Patient denies any side effects of the medication(s), denies excessive drowsiness or sleepiness, denies suicidal ideation and reports that the current pain medication is helping to control the pain and improve activities of daily living. Patient denies any motor or sensory deficits. Patient denies any fever or night sweats, denies any change in the bowel movements or urination. Physical Examination: -Constitutional: Cooperative. Not in acute distress . - Neurologic: Cranial nerve II to XII intact. No focal neurological deficits. - Psychatric: Alert & oriented x 3. Matching mood & appropriate affect. Judgment and insight intact. - Musculoskeletal: Cervical spine: Muscle bulk/ tone/ strength in the bilateral upper extremities normal Vertebral body tenderness to palpation over Spurling test positive Distraction test positive Facet loading test positive TTP Thoracic spine Muscle bulk / tone/ strength in the bilateral paraspinal muscles normal Vertebral body tender to palpation over Facet loading test positive TTP Lumbar spine: Motor bulk/ tone/ strength lower extremities , thigh and legs : 5/5 Deep tendon reflexes : Normal Knee Jerk. Normal Ankle Jerk . Vertebral body tenderness to palpation over L3, L4, L5 Lumbar Facet Loading Test positive Straight Leg Raise: positive at 30 degrees right side/ left side Gaenslen's Test positive Sacral spine : Severe tenderness over the Sacroiliac joint: right side / left side Range of motion: Flexion of the lumbar spine <60 degrees Range of motion: Extension of the lumbar spine <20 degrees Gaenslen's Test positive right side / left side Reyna test: positive right side / left side Thigh Thrust Test positive right side / left side Sacral Thrust Test positive right side / left side Assessment and plan: Chronic LBP secondary to lumbar DDD, spondylosis with facet arthropathy without myelopathy Recommendation of SCS trial re: G89.4, M47.26. Risks, benefits of procedure discussed and pt verbalized understanding. Admits to anticoagulant use or medical history of diabetes. Protocol for discontinuation/ continuation of medications janine procedure discussed. All questions answered. I have spent less than 30 minutes on patient care today. Dr Ozuna was available by phone for the evaluation of this patient. The time was used to review the medical records including relevant urine studies and Prescription history (MAPs), review of the available imaging, evaluation and examination of the patient, coordination of care with the medical staff and if applicable referring physicians, as well as creation of the medical record PQRS Narrative: Smoking Status Never smoker Hx Alcohol Use (MH) No Home Medications: Ambulatory Orders Ibuprofen [Motrin Ib] 600 mg PO Q6H PRN 06/03/18 Simethicone [Gas-X] 125 mg PO QID PRN 06/03/18 Acetaminophen [Tylenol Arthritis] 1,300 mg PO HS 08/12/22 Donepezil HCl [Aricept] 5 mg PO QAM 08/12/22 Magnesium 250 mg PO HS 08/12/22 Unk Multi Vitamin 1 tab PO DAILY 08/12/22 Controlled Substance Measures - Controlled Substance Measures Is patient prescribed a controlled substance at discharge?: No
[2023-01-01 15:24] VITALS: BP 154/77; PULSE 77; RESP 18; TEMP 97.9
== END ==
LOC: PNWHC3 13:56
PROVIDERS: ATTEND Specialist
DX: M51.36 Other intervertebral disc degeneration, lumbar region (principal); M47.816 Spondylosis without myelopathy or radiculopathy, lumbar region; G89.29 Other chronic pain; Z91.018 Allergy to other foods
CPT/HCPCS: 99211

== ENCOUNTER 2023-01-23 11:07 | Day surgery (SDC) | payer MEDICARE, OTHER ==
[2023-01-22 10:44] VITALS: BMI 23.9
[~2023-01-23 11:07] MED LIST changes: +LIDOCAINE 1% (10MG/ML) FOR IV START INTRADERMA PRN
[2023-01-23 11:44] VITALS: TEMP 97
[2023-01-23] MEDS ORDERED: ROPIVACAINE 5 MG/ML 20 ML AMPULE ONE (11:46)
[2023-01-23] MEDS ORDERED: LABETALOL 5 MG/ML VIAL MDV ONE (11:46)
[2023-01-23] MEDS ORDERED: fentaNYL (PF) 50 MCG/ML 2 ML AMP ONE (11:46)
[2023-01-23] MEDS ORDERED: MIDAZOLAM 2 MG/2 ML VIAL ONE (11:46)
--- NOTE | 2023-01-23 13:00 | FL ---
EXAMINATION TYPE: FL guided pain mgmt statistic DATE OF EXAM: 01/23/2023 CLINICAL HISTORY: Back pain. TECHNIQUE: Fluoroscopy. COMPARISON: None. FINDINGS: Fluoroscopic guidance was provided during pain relief procedure performed by Dr. Ozuna . A total of 216.2 seconds of fluoroscopic time was utilized during the procedure and 3 spot images are acquired. Images acquired shows spinal stimulator inserted into the thoracic spinal canal. IMPRESSION: As Above. Total dap 0.01267 mGy x m2
[2023-01-23] MEDS ORDERED: LACTATED RINGERS 1,000 ML IV ONE (13:05)
--- NOTE | 2023-01-23 13:31 | P.PCN ---
Date of Procedure: 01/23/23 Procedure(s) Performed: PROCEDURES: 1- spinal cord stimulator trial under fluoroscopic guidance X2 lead (Fluoroscopy images stored on file in radiology department ) 2- complex programing of the spinal cord stimulator. PREOPERATIVE DIAGNOSIS: 1-lumbar spondylosis with lumbar facet arthropathy without myelopathy. 2-lumbar degenerative disc disease. POSTOPERATIVE DIAGNOSIS: 1-same as preoperative diagnoses ANESTHESIA: Monitored anesthesia care as per anesthesia department BLOOD LOSS: Minimal. COMPLICATIONS: None. PROCEDURE INDICATIONS: The patient with a history of severe intractable low back pain who failed more conservative treatment measures. Patient had multiple pain interventions procedure and she got short-term benefit from it, patient was a candidate for spinal cord stimulator and she had the psychological testing done and showed that there is no contraindication for the spinal cord stimulator, patient is not interested in having any lumbar surgery PROCEDURE DESCRIPTION: The patient was seen and identified in the preoperative area. Risks, benefits, complications, and alternatives were discussed with the patient and the family (daughter and son ). The patient agreed to proceed with the procedure and signed the consent. IV was started.Patient was taken to the operating room and time out was performed. She received 2 gram of IV for prophylactic antibitics before the start of the procedure. The Thoracic and lumbar areas were prepped with Druaprep x2 and draped in the usual sterile fashion. Using sterile gowns and gloves, and after covering the fluoroscopic camera with a sterile drape, the procedure was proceeded on with. The fluoroscopic camera was placed in the AP position, and the T12-L1 interlaminar space was identified and localized in the left paramedian trajectory with 2% lidocaine. Under fluoroscopic guidance, a 14 gauge Tuohy epidural needle from the [employer] spinal cord stimulator kit was guided into the interlaminar space. Then using the right oblique fluoroscopy, anterior-posterior fluoroscopy, and qaey-[id number] technique, the epidural space was accessed. The first lead (8 contacts leads from [employer] ) was passed and noted to be in the dorsal portion of the epidural space in the lateral view. Then using anterior-posterior view, the first lead was passed up to the top of T8 vertebra. Subsequently, a second 14 gauge Tuohy epidural needle was inserted just posterior to the first needle and was advanced toward the epidural space in a parallel direction to the first needle. Then using lateral fluoroscopy, anterior-posterior fluoroscopy, and fjtu-zi-byenxaglmg technique, the epidural space was accessed by the second needle into the same interlaminar space as the first needle. Then a second similar lead was passed and noted to be in the dorsal portion of the epidural space in the lateral view. Then using anterior-posterior view, the second lead was passed up to the top of T 9 vertebra, and was left in a parallel position to the first lead. Subsequently, the leads were tested and they gave good stimulation on the low back area and the lower extremity , then after that the needle was removed and both legs secured using 2-0 silk, and then the dressing applied durind the procedure ,we performed complex programing of the spinal cord stimulator ,we changed pulse width ,amplitude and the frequencey of the stimulation and we got good coverage for the painful area ,the parasthesia overlaped the painfull area ,patients was satesfied withe the stimulation ,we got more than 80 % decrease in the pain level COMPLICATIONS: No acute complications. COMMENTS: Each lead used had 8 contacts with a total of 16 contacts used. DISPOSITION / PLANS: The patient was placed in a supine position and transferred to the recovery area in a stable condition for observation. There was no evidence of lower extremity motor or sensory deficit after the procedure. Patient was discharged from the recovery room after meeting discharge criteria. Home discharge instructions were given to the patient by the staff. The patient was reexamined prior to discharge. note= during placement the first epidural needle was positive CSF at the L1-2 interlaminal space , the needle was withdrawn ,and I was able to access the epidural space T12-L1 , and then the lead was advanced to the epidural space without any difficulty, discussed with the patient and the family that if they have postdural puncture headache, then we have to proceed with the blood patch, otherwise if patient had no headache there is no need to do the blood patch
[2023-01-23 13:38] VITALS: RESP 20
[2023-01-23 13:55] VITALS: BP 128/67; PULSE 60
== END 2023-01-23 14:49 | disposition home or self-care (01) ==
LOC: ORPAIN 11:07
PROVIDERS: ATTEND Specialist
DX: M51.36 Other intervertebral disc degeneration, lumbar region (principal); M47.816 Spondylosis without myelopathy or radiculopathy, lumbar region; Z88.0 Allergy status to penicillin
CPT/HCPCS: 63650; J2250; J3010; J2795; C1897 ×2; C1883

== ENCOUNTER → 2023-01-30 | Outpatient (CLI) | payer MEDICARE, OTHER ==
[2023-01-30 10:47] VITALS: BP 134/65; PULSE 77; RESP 18; TEMP 97.8
--- NOTE | 2023-01-30 11:17 | P.PN ---
Subjective Progress Note Date: 01/30/23 This is followed visit for 83 years old male, with a history of severe and chronic back pain, patient diagnosed with lumbar degenerative disc disease and lumbar spondylosis with lumbar facet arthropathy, last week we have done a spinal cord stimulator trial, and patient here today for follow-up visit and the removal of the trial lead, patient is not sure how much he benefited from it, he feels that some days he felt improvement of his pain and some days he did not feel any improvement, for this reason I don't recommend to proceed with the permanent implant of the spinal cord stimulator, patient is not a surgical candidate for spine surgery, and he is currently on Tylenol and Motrin when necessary and these medication is not helping to control his pain, denies any fever or night sweats but he denies any motor or sensory deficit, today under strict sterile technique I was able to remove the spinal cord stimulator leads,x2 , tip of the leads were intact, and dressing applied. Physical Examinations : -Constitutiona : Cooperative , not in acute distress . -HEENT : nech : supple , no Lymphadenopathy , normal thyroid size . : eyes : no ptosis , no icterus, no photophobia . - neurologic : Cranial nerve II to XII intact , no focal neurological deffecit . -psychatric : alert , oriented X 3 , appropriate affect , intact judgment and insight . -Lymphatic : no Lymphadenopathy . - musculoskeltal : Lumber spine moter stegnth lower extremities ,thigh and legs 3-4/5 Right side , 3-4/5 Left side Objective - Vital Signs Vital signs: Vital Signs Temp 97.8 F 01/30/23 10:41 Pulse 77 01/30/23 10:41 Resp 18 01/30/23 10:41 BP 134/65 01/30/23 10:41 Pulse Ox 97 01/30/23 10:41 FiO2 Assessment and Plan Plan: Assessment and plan= chronic low back pain secondary to lumbar degenerative disc disease , lumbar spondylosis with lumbar facet arthropathy . Patient had spinal cord stimulator trial done last week , he is not a candidate for permanent implantable spinal cord stimulator leads Patient will be started on Ultram 50 mg half a tablet every 6 hours when necessary dispensed 60 with no refills, and patient will follow up in the pain clinic next 2 weeks for reevaluation , Time with Patient: Less than 30
--- NOTE | 2023-01-30 14:33 | P.PCN ---
Date of Procedure: 01/30/23 Procedure(s) Performed: PROCEDURES: 1-spinal cord stimulator permanent leads implant under fluoroscopic guidance X2 leads . (Fluoroscopy images stored on file in radiology department ) CPT code 17629 x2 2-implantation of spinal cord stimulator generator Cpt code 81833 PREOPERATIVE DIAGNOSIS: 1-lumbar degenerative disc disease. 2-lumbar spondylosis with lumbar facet arthropathy POSTOPERATIVE DIAGNOSIS: Same as preop diagnosis. ANESTHESIA: monitered anesthesia care as per anesthesia department BLOOD LOSS: Minimal. COMPLICATIONS: None. PROCEDURE INDICATIONS: The patient with a history of severe intractable , chronic low back pain with radiation to the lower extremities bilateraly who failed more conservative treatment measures. And she failed all interventional pain management, we discussed with the patient in the clinic the option of doing spinal cord stimulator and she was very interested risk and benefits of the procedure was discussed with the patient and she agreed with proceeding, and patient was evaluated by psychologist, and there was no contraindication to proceed with a spinal cord stimulator, patient already had successful spinal cord stimulator trial done aboute months ago and she is here today to have permanent implant. PROCEDURE DESCRIPTION: The patient was seen and identified in the preoperative area. Risks, benefits, complications, and alternatives were discussed with the patient. The patient agreed to proceed with the procedure and signed the consent. IV was started.Patient was taken to the operating room and time out was performed. The Thoracic and lumbar areas were prepped with Druaprep x2 and draped in the usual sterile fashion. Using sterile gowns and gloves, and after covering the fluoroscopic camera with a sterile drape, the procedure was proceeded on with. The fluoroscopic camera was placed in the AP position, and the L1-2 interlaminar space was identified and localized in the left paramedian trajectory with 1% lidocaine. Under fluoroscopic guidance, a 14 gauge Tuohy epidural needle from the ( [employer] ) spinal cord stimulator kit was guided into the interlaminar space. Then using the right oblique fluoroscopy, anterior-posterior fluoroscopy, and yloz-[id number]-cfbiquujkv technique, the epidural space was accessed. The first lead (8 contacts leads from [employer] ) was passed and noted to be in the dorsal portion of the epidural space in the lateral view. Then using anterior-posterior view, the first lead was passed up to the top of T9 vertebra. Subsequently, a second 14 gauge Tuohy epidural needle was inserted just posterior to the first needle and was advanced toward the epidural space in a parallel direction to the first needle. Then using lateral fluoroscopy, anterior-posterior fluoroscopy, and dznt-af-icpihqivvu technique, the epidural space was accessed by the second needle into the same interlaminar space as the first needle. Then when I tried to advance the second lead was going anteriorly to the spine, multiple attempt one position the leads posterior to the spinal cord was failed, and I tried to add accessed the epidural space through L2-3 levels, loss of resistance to air at L2-3, then again I tried to advance the second lead posterior to the spinal cord, was failed, and every time I tried to advance the lead was going anterior to the epidural space, and patient was complaining of severe muscle spasm in the lower extremity, and patient was moving significantly on the operating table, and it was not safe to continue trying to access the epidural space posteriorly, for this reason I readjusted the first lead, and I positioned the lead over all of T8 and T9 vertebra, over the midline. Subsequently, the leads were tested and they gave good stimulation on the low back area and the lower extremity bilaterally. Then incisions done in the spinal area upper lumbar and I did the dissection, created pockets for the lead, and then after that I created a pocket on the left side of the flank area to create the pocket for the generator, then the generator connected to the leads, and the generator, and under the skin and placed in the pocket, adequate hemostasis obtained, and then the incision closed using 2,O Vicryl, 3, O Vicryls, for the skin and used sahil, she will use antibiotic Cipro 500 mg every day for 1 week , patient will follow up in the pain clinic next week
== END ==
LOC: PNWHC3 10:00
PROVIDERS: ATTEND Specialist
DX: M51.36 Other intervertebral disc degeneration, lumbar region (principal); M47.816 Spondylosis without myelopathy or radiculopathy, lumbar region; G89.29 Other chronic pain; Z91.018 Allergy to other foods
CPT/HCPCS: 99211

== ENCOUNTER → 2023-02-12 | Outpatient (CLI) | payer MEDICARE, OTHER ==
[2023-02-12 11:33] VITALS: BP 142/82; PULSE 69; RESP 18; TEMP 97.9
--- NOTE | 2023-02-19 15:06 | P.PAINPG ---
Objective - Vital Signs Vital signs: Vital Signs Temp 97.9 F 02/12/23 11:18 Pulse 69 02/12/23 11:18 Resp 18 02/12/23 11:18 BP 142/82 02/12/23 11:18 Pulse Ox 97 02/12/23 11:18 FiO2 PQRS Measure Charge Sheet Mode of Arrival: Wheelchair Comment: A 83 yr old male w son & daughter at side at side with a history of severe and chronic LBP secondary to lumbar DDD and spondylosis with facet arthropathy without myelopathy presents today for evaluation s/p SCS placement. Pain level is provoked at 7 /10 in intensity, constant, localized in the lumbar spine, sharp in character without shooting pain. Pain is provoked by sitting, lifting or carrying. Pain is alleviated with a wheelchair for ambulatory assistance, medications, massages at home, PT w massage x 6 wks which he is currently in, heat, ice, repositioning and rest. SCS Trial was ineffective in reducing pain. Interventional pain procedures completed include ROYCE L3-L4, Lumbar TPIs Patient is currently on Ultramm Tyl, Ibu Patient denies any side effects of the medication(s), denies excessive drowsiness or sleepiness, denies suicidal ideation and reports that the current pain medication is helping to control the pain and improve activities of daily living. Patient denies any motor or sensory deficits. Patient denies any fever or night sweats, denies any change in the bowel movements or urination. Physical Examination: -Constitutional: Cooperative. Not in acute distress . - Neurologic: Cranial nerve II to XII intact. No focal neurological deficits. - Psychatric: Alert & oriented x 3. Matching mood & appropriate affect. Judgment and insight intact. - Musculoskeletal: Cervical spine: Muscle bulk/ tone/ strength in the bilateral upper extremities normal Vertebral body tenderness to palpation over Spurling test positive Distraction test positive Facet loading test positive TTP Thoracic spine Muscle bulk / tone/ strength in the bilateral paraspinal muscles normal Vertebral body tender to palpation over Facet loading test positive TTP Lumbar spine: Motor bulk/ tone/ strength lower extremities , thigh and legs : 5/5 Deep tendon reflexes : Normal Knee Jerk. Normal Ankle Jerk . Vertebral body tenderness to palpation over Rivera Test positive Lumbar Facet Loading Test positive Straight Leg Raise: positive at 30 degrees right side/ left side Gaenslen's Test positive Sacral spine : Severe tenderness over the Sacroiliac joint: right side / left side Range of motion: Flexion of the lumbar spine <60 degrees Range of motion: Extension of the lumbar spine <20 degrees Gaenslen's Test positive right side / left side Reyna test: positive right side / left side Thigh Thrust Test positive right side / left side Sacral Thrust Test positive right side / left side Assessment and plan: Chronic LBP secondary to lumbar DDD, spondylosis with facet arthropathy without myelopathy Chronic and current use of high-risk medication (Opioids). The patient was counseled about risk of opioid use, psychological risk associated with opioids and was orally counseled to not overuse , divert or sell medications. Pt is to store medication in a safe location. The patient is counseled against driving while using narcotic medications and also not to use alcohol or any illicit recreational drugs. Patient verbalized understanding that the lack of compliance will result in failure to renew narcotic prescription(s) as well as possible discharge from the clinic Diagnoses, prognosis and treatment options including but not limited to physical therapy, surgical interventions, interventional therapies and medication management including narcotics and adjuvant medication were discussed. All patient questions answered MAPS reviewed and it was appropriate. Prescription refill for Ultram 50,g #30 w 1 RF. Increased dose as pain is not managed w 1/2 tab QAM. I have spent less than 30 minutes on patient care today. Dr Ozuna was available by phone for the evaluation of this patient. The time was used to review the medical records including relevant urine studies and Prescription history (MAPs), review of the available imaging, evaluation and examination of the patient, coordination of care with the medical staff and if applicable referring physicians, as well as creation of the medical record PQRS Narrative: Smoking Status Never smoker Hx Alcohol Use (MH) No Home Medications: Ambulatory Orders Ibuprofen [Motrin Ib] 800 mg PO BID PRN 06/03/18 Simethicone [Gas-X] 125 mg PO QID PRN 06/03/18 Acetaminophen [Tylenol Arthritis] 1,300 mg PO HS 08/12/22 Donepezil HCl [Aricept] 5 mg PO QAM 08/12/22 Multivitamins, Thera [Multivitamin (formulary)] 1 tab PO DAILY 01/22/23 Ciprofloxacin HCl [Cipro] 250 mg PO Q12HR 7 Days #14 tab 01/30/23 traMADol HCl [Ultram] 50 mg PO Q6HR PRN 30 Days #60 tab 01/30/23 Controlled Substance Measures - Controlled Substance Measures Is patient prescribed a controlled substance at discharge?: Yes When asked, does pt state using other controlled substances?: No If prescribed controlled substance>3 days was MAPS reviewed?: Yes - Pain Location Bilateral Lower Back Non-Pharmacological Interventions: Exercise, Heat, Home Exercise, Ice, Inactivity, Massage, Physical Therapy, Position/Reposition, Sitting, Stretching Pharmacological Interventions: Block, Epidural, PRN Medication, Scheduled Medication, Topical Medication PQRS Narrative: Smoking Status Never smoker Blood Pressure 142/82 Pain Intensity [Bilateral 7 Lower Back] Scale Used Numeric (1 - 10) Hx Alcohol Use (MH) No Home Medications: Ambulatory Orders Ibuprofen [Motrin Ib] 800 mg PO BID PRN 06/03/18 Simethicone [Gas-X] 125 mg PO QID PRN 06/03/18 Acetaminophen [Tylenol Arthritis] 1,300 mg PO HS 08/12/22 Donepezil HCl [Aricept] 5 mg PO QAM 08/12/22 Multivitamins, Thera [Multivitamin (formulary)] 1 tab PO DAILY 01/22/23 Ciprofloxacin HCl [Cipro] 250 mg PO Q12HR 7 Days #14 tab 01/30/23 traMADol HCl [Ultram] 50 mg PO Q8HR PRN 30 Days #90 tab 02/12/23 Controlled Substance Measures - Controlled Substance Measures Is patient prescribed a controlled substance at discharge?: Yes
== END ==
LOC: PNWHC3 10:55
PROVIDERS: ATTEND Specialist
DX: M51.36 Other intervertebral disc degeneration, lumbar region (principal); M47.816 Spondylosis without myelopathy or radiculopathy, lumbar region; G89.29 Other chronic pain; Z91.018 Allergy to other foods
CPT/HCPCS: 99211

== ENCOUNTER → 2023-05-11 | Outpatient (CLI) | payer MEDICARE, OTHER ==
--- NOTE | 2023-05-11 17:59 | CA ---
Transthoracic Echo Report Name: Davin Simons Age: 83 Gender: M : 1940 Exam Date: 05/11/2023 15:16 Exam Location: [facility] Ht (in): 70 Wt (lb): 165 Ordering Physician: Radha Collins MD Attending/Referring Phys: Manager Of Development Angelica Bello RDCS Procedure CPT: Indications: R48.8 OTHER SYMBOLIC DYSFUNCTIONS Cardiac Hx: Technical Quality: Fair Contrast 1: Total Dose (mL): Contrast 2: Total Dose (mL): MEASUREMENTS (Male / Female) Normal Values 2D ECHO LV Diastolic Diameter PLAX 4.7 cm 4.2 - 5.9 / 3.9 - 5.3 cm LV Systolic Diameter PLAX 3.8 cm IVS Diastolic Thickness 1.1 cm 0.6 - 1.0 / 0.6 - 0.9 cm LVPW Diastolic Thickness 1.1 cm 0.6 - 1.0 / 0.6 - 0.9 cm LV Relative Wall Thickness 0.5 RV Internal Dim ED PLAX 3.3 cm LA Systolic Diameter LX 3.7 cm 3.0 - 4.0 / 2.7 - 3.8 cm LV Diastolic Volume MOD BP 92.8 cm??? 67 - 155 / 56 - 104 cm??? LV Systolic Volume MOD BP 58.3 cm??? 22 - 58 / 19 - 49 cm??? LV Ejection Fraction MOD BP 37.2 % >= 55 % LV Cardiac Index MOD BP 1684.6 cm???/min???m??? LV Diastolic Volume MOD 4C 97.2 cm??? LV Systolic Volume MOD 4C 57.1 cm??? LV Ejection Fraction MOD 4C 41.2 % LV Cardiac Index MOD 4C 1955.4 cm???/min???m??? LV Diastolic Length 4C 8.2 cm LV Systolic Length 4C 7.2 cm LV Diastolic Volume MOD 2C 95.8 cm??? LV Systolic Volume MOD 2C 57.8 cm??? LV Ejection Fraction MOD 2C 39.7 % LV Cardiac Index MOD 2C 1855.4 cm???/min???m??? LV Diastolic Length 2C 8.7 cm LV Systolic Length 2C 7.9 cm LA Volume 47.8 cm??? 18 - 58 / 22 - 52 cm??? M-MODE Aortic Root Diameter MM 3.6 cm MV E Point Septal Separation 1.3 cm AV Cusp Separation MM 2.3 cm DOPPLER AV Peak Velocity 91.1 cm/s AV Peak Gradient 3.3 mmHg AI Peak Velocity 288.2 cm/s AI Peak Gradient 33.2 mmHg AI Pressure Half Time 463.5 ms MV Area PHT 3.1 cm??? Mitral E Point Velocity 48.7 cm/s Mitral A Point Velocity 88.7 cm/s Mitral E to A Ratio 0.5 MV Deceleration Time 244.7 ms TR Peak Velocity 229.8 cm/s TR Peak Gradient 21.1 mmHg Right Ventricular Systolic Press 26.1 mmHg FINDINGS Left Ventricle Left ventricular ejection fraction is estimated at 40-45 %. Left ventricular cavity size normal. Mildly increased septal wall thickness. Moderately decreased left ventricular ejection fraction. Global hypokinesis, more noted in the apex Right Ventricle Mild right ventricular dilatation. Right ventricular systolic pressure within normal limits. Right Atrium Normal right atrial size. Left Atrium Normal left atrial size. Mitral Valve Structurally normal mitral valve. Mild mitral regurgitation. Aortic Valve Trileaflet aortic valve. Mild aortic regurgitation.aortic valve sclerosis. Tricuspid Valve Structurally normal tricuspid valve. Mild tricuspid regurgitation. Pulmonic Valve Structurally normal pulmonic valve. Mild pulmonic regurgitation. Pericardium No pericardial effusion. Aorta Normal size aortic root and proximal ascending aorta. CONCLUSIONS 1. Moderately impaired left ventricle systolic function with global hypokinesis more noted in the apex 2. Mild mitral, aortic and tricuspid regurgitation with no evidence of pulmonary hypertension Previewed by: Dr. Ilan Angulo MD (Electronically Signed) Final Date: 11 May 2023 17:58
== END | disposition home or self-care (01) ==
LOC: RADECHMAIN 15:10
PROVIDERS: ATTEND Internal Medicine
DX: R48.8 Other symbolic dysfunctions (principal); I95.89 Other hypotension; I08.3 Combined rheumatic disorders of mitral, aortic and tricuspid valves; I50.1 Left ventricular failure, unspecified
CPT/HCPCS: 93306

== ENCOUNTER → 2023-08-20 | Outpatient (CLI) | payer MEDICARE, OTHER ==
--- NOTE | 2023-08-20 14:43 | CT ---
EXAMINATION TYPE: CT brain wo con DATE OF EXAM: 08/20/2023 COMPARISON: None available. HISTORY: Altered mental status. CT DLP: 2672 mGycm Automated exposure control for dose reduction was used. FINDINGS: There is no acute intracranial hemorrhage, mass, mass effect, midline shift, extra-axial fluid collec tion or hydrocephalus. There is mild hypoattenuation the periventricular white matter which likely relates to chronic ischem ic small vessel change. Rodriguez-white distinction is otherwise intact with no acute major vessel infarct identified. There is mild mucosal thickening and a small air-fluid level within the left maxillary sinus. The vis ualized paranasal sinuses and mastoid air cells are clear. IMPRESSION: 1. No acute intracranial process. 2. Mild left maxillary sinus disease.
== END | disposition home or self-care (01) ==
LOC: RADCTMAIN 12:32
PROVIDERS: ATTEND Psychiatry & Neurology Neurology
DX: J32.0 Chronic maxillary sinusitis (principal); G20.A2 Parkinson's disease without dyskinesia, with fluctuations; G30.0 Alzheimer's disease with early onset
CPT/HCPCS: 70450

== ENCOUNTER 2023-09-03 09:26 | Inpatient (IN) | payer MEDICARE, OTHER ==
[2023-09-03] MEDS ORDERED: SODIUM CHLORIDE 0.9% 1,000 ML IV STA (09:38)
--- NOTE | 2023-09-03 09:41 | ED ---
General Adult HPI - General Chief complaint: Weakness Stated complaint: Weakness Time Seen by Provider: 09/03/23 09:27 Source: patient, EMS, RN notes reviewed Mode of arrival: EMS Limitations: altered mental status, physical limitation - History of Present Illness Initial comments: Patient is an 83-year-old male presenting to the emergency department with concerns with general weakness and decrease talking. Patient usually communicates with staff at [facility] where he comes from. Patient has limited verbal response at this time. They did question to EMS of patient may have aspirated. Patient unable to provide any further history. - Related Data Home Medications Medication Instructions Recorded Confirmed Simethicone [Gas-X] 125 mg PO ACHS PRN 06/03/18 09/03/23 Acetaminophen [Tylenol Arthritis] 650 mg PO HS 08/12/22 09/03/23 Donepezil HCl [Aricept] 10 mg PO HS 08/12/22 09/03/23 Multivitamins, Thera [Multivitamin 1 tab PO DAILY 01/22/23 09/03/23 (formulary)] Acetaminophen [Tylenol] 650 mg PO Q4H PRN 09/03/23 09/03/23 Aspirin 81 mg PO DAILY 09/03/23 09/03/23 Carbidopa-Levodopa 25-100 mg 1 tab PO BID@0800,1200 09/03/23 09/03/23 [Sinemet 25-100] Ketotifen Fumarate [Alaway] 1 drop BOTH EYES HS 09/03/23 09/03/23 Lactose-Reduced Food [Ensure Plus] 237 ml PO DAILY 09/03/23 09/03/23 Memantine [Namenda] 5 mg PO BID 09/03/23 09/03/23 Menthol [Biofreeze] 1 applic TOPICAL BID 09/03/23 09/03/23 Ocusoft Lid Scrub Plus External 1 applic BOTH EYES HS 09/03/23 09/03/23 Pad (Eyelid Cleansers) Omeprazole [PriLOSEC] 20 mg PO HS 09/03/23 09/03/23 Sucralfate [Carafate] 1 gm PO AC-TID@08,12,17 09/03/23 09/03/23 guaiFENesin [guaiFENesin Oral 200 mg PO Q4H PRN 01/04/24 01/04/24 Solution] polyethylene glycoL 3350 [Miralax] 17 gm PO DAILY 09/03/23 09/03/23 Previous Rx's Medication Instructions Recorded Ferrous Sulfate [Feosol] 325 mg PO DAILY 30 Days #30 tab 03/20/23 Allergies Allergy/AdvReac Type Severity Reaction Status Date / Time garlic Allergy "tears his Verified 09/03/23 09:38 gut up" Review of Systems ROS Statement: Those systems with pertinent positive or pertinent negative responses have been documented in the HPI. ROS Other: All systems not noted in ROS Statement are negative. Limitations: ROS unobtainable due to patients medical condition Constitutional: Denies: fever Past Medical History Past Medical History: No Reported History, Dementia Additional Past Medical History / Comment(s): Ing. Hernia; Hx of kidney stones History of Any Multi-Drug Resistant Organisms: None Reported Past Surgical History: No Surgical Hx Reported Additional Past Surgical History / Comment(s): colonoscopy; Past Anesthesia/Blood Transfusion Reactions: No Reported Reaction Past Psychological History: Anxiety, Depression Smoking Status: Unknown if ever smoked Past Alcohol Use History: None Reported Past Drug Use History: None Reported - Past Family History Mother History Unknown: Yes Family Medical History: Diabetes Mellitus General Exam Limitations: altered mental status General appearance: alert, in no apparent distress Head exam: Present: normocephalic Eye exam: Present: normal appearance ENT exam: Present: mucous membranes dry Neck exam: Present: normal inspection Respiratory exam: Present: normal lung sounds bilaterally Cardiovascular Exam: Present: regular rate. Absent: normal rhythm Extremities exam: Present: pedal edema Neurological exam: Present: altered Expanded Neurological exam: Present: protecting the airway, other (Moves all extremities to pain. Follow commands.) Patient oriented to: Present: person. Absent: place, time Eye Response: (2) open to pain Motor Response: (4) withdraws to pain Verbal Response: (3) inappropriate words Psychiatric exam: Present: flat affect Skin exam: Present: normal color Course Vital Signs 09/03/23 09:34 Temperature 97.8 F Pulse Rate 72 Respiratory 20 Rate Blood Pressure 100/64 O2 Sat by Pulse 95 Oximetry EKG Findings - EKG Results: EKG: interpreted by ERMD (Left axis. PVC present. LVH criteria. Nonspecific ventricular conduction delay.), sinus rhythm, normal ST/T Medical Decision Making - Medical Decision Making Was pt. sent in by a medical professional or institution ([facility], [facility], urgent care, hospital, or alf...) When possible be specific @ -Patient was sent from nursing facility Did you speak to anyone other than the patient for history (EMS, parent, family, police, friend...)? What history was obtained from this source @ -Son arrives and provides additional history that patient has been with decreased oral intake over the past week Did you review nursing and triage notes (agree or disagree)? Why? @ -I reviewed and agree with nursing and triage notes Were old charts reviewed (outside hosp., previous admission, EMS record, old EKG, old radiological studies, urgent care reports/EKG's, alf records)? Report findings @ -Previous chest x-ray reviewed Differential Diagnosis (chest pain, altered mental status, abdominal pain women, abdominal pain men, vaginal bleeding, weakness, fever, dyspnea, syncope, headache, dizziness, GI bleed, back pain, seizure, CVA, palpatations, mental health, musculoskeletal)? @ -Differential Weakness: Hypoglycemia, shock, sepsis, hyponatremia, anemia, infection, [place], ETOH, adverse medicine reaction, overdose, stroke, this is not meant to be an all-inclusive list. EKG interpreted by me (3pts min.). @ -As above X-rays interpreted by me (1pt min.). @ -Chest x-ray does not reveal acute abnormality CT interpreted by me (1pt min.). @ -CT brain without obvious acute abnormality U/S interpreted by me (1pt. min.). @ -None done What testing was considered but not performed or refused? (CT, X-rays, U/S, labs)? Why? @ -None What meds were considered but not given or refused? Why? @ -None Did you discuss the management of the patient with other professionals (professionals i.e. [facility] Govea, [facility], lab, RT, psych nurse, social work program coordinator, pastry sous chef, teacher, classifications officer cc/cm, director case)? Give summary @ -Case was discussed with Dr. Collins who will admit his patient Was smoking cessation discussed for >3mins.? @ -No Was critical care preformed (if so, how long)? @ -No Were there social determinants of health that impacted care today? How? (Homelessness, low income, unemployed, alcoholism, drug addiction, transp ortation, low edu. Level, literacy, decrease access to med. care, alf, rehab)? @ -No Was there de-escalation of care discussed even if they declined (Discuss DNR or withdrawal of care, Hospice)? DNR status @ -No What co-morbidities impacted this encounter? (DM, HTN, Smoking, COPD, CAD, Cancer, CVA, ARF, Chemo, Hep., AIDS, mental health diagnosis, sleep apnea, morbid obesity)? @ -None Was patient admitted / discharged? Hospital course, mention meds given and route, prescriptions, significant lab abnormalities, going to OR and other pertinent info. @ -Patient reevaluated. Family updated. Patient will be admitted with IV fluids. Son states patient is full code. Admission orders written. Undiagnosed new problem with uncertain prognosis? @ -No Drug Therapy requiring intensive monitoring for toxicity (Heparin, Nitro, Insulin, Cardizem)? @ -No Were any procedures done? @ -No Diagnosis/symptom? @ -Dehydration, weakness Acute, or Chronic, or Acute on Chronic? @ -Acute, acute Uncomplicated (without systemic symptoms) or Complicated (systemic symptoms)? @ -default Side effects of treatment? @ -No Exacerbation, Progression, or Severe Exacerbation? @ -No Poses a threat to life or bodily function? How? (Chest pain, [place], [place], pneumonia, PE, COPD, DKA, ARF, appy, cholecystitis, CVA, Diverticulitis, Homicidal, Suicidal, threat to staff... and all critical care pts) @ -No - Lab Data Result diagrams: 09/03/23 09:51 09/03/23 09:51 Lab Results 09/03/23 09/03/23 09/03/23 Range/Units 09:51 09:51 09:51 WBC 12.0 H (3.8-10.6) k/uL RBC 4.87 (4.30-5.90) m/uL Hgb 15.6 (13.0-17.5) gm/dL Hct 46.5 (39.0-53.0) % MCV 95.4 (80.0-100.0) fL MCH 32.0 (25.0-35.0) pg MCHC 33.5 (31.0-37.0) g/dL RDW 15.8 H (11.5-15.5) % Plt Count 234 (150-450) k/uL MPV 8.6 Neutrophils % (Manual) 82 % Band Neuts % (Manual) 6 % Lymphocytes % (Manual) 5 % Monocytes % (Manual) 6 % Metamyelocytes % 1 % Neutrophils # (Manual) 10.50 H (1.3-7.7) k/uL Lymphocytes # (Manual) 0.60 L (1.0-4.8) k/uL Monocytes # (Manual) 0.72 (0-1.0) k/uL Metamyelocytes # (Man) 0.12 H (0) k/uL Nucleated RBCs 0 (0-0) /100 WBC Manual Slide Review Performed PT 12.0 (10.0-12.5) sec INR 1.1 (<1.2) APTT 24.4 (22.0-30.0) sec Sodium (137-145) mmol/L Potassium (3.5-5.1) mmol/L Chloride (98-107) mmol/L Carbon Dioxide (22-30) mmol/L Anion Gap mmol/L BUN (9-20) mg/dL Creatinine (0.66-1.25) mg/dL Est GFR (CKD-EPI)AfAm (>60 ml/min/1.73 sqM) Est GFR (CKD-EPI)NonAf (>60 ml/min/1.73 sqM) Glucose (74-99) mg/dL Plasma Lactic Acid Jose Antonio (0.7-2.0) mmol/L Calcium (8.4-10.2) mg/dL Magnesium (1.6-2.3) mg/dL Total Bilirubin (0.2-1.3) mg/dL AST (17-59) U/L ALT (4-49) U/L Alkaline Phosphatase (38-126) U/L Troponin I (0.000-0.034) ng/mL Total Protein (6.3-8.2) g/dL Albumin (3.5-5.0) g/dL Urine Color Yellow Urine Appearance Clear (Clear) Urine pH 6.0 (5.0-8.0) Ur Specific Beaver 1.028 (1.001-1.035) Urine Protein Trace H (Negative) Urine Glucose (UA) Negative (Negative) Urine Ketones 2+ H (Negative) Urine Blood Negative (Negative) Urine Nitrite Negative (Negative) Urine Bilirubin Negative (Negative) Urine Urobilinogen <2.0 (<2.0) mg/dL Ur Leukocyte Esterase Negative (Negative) Influenza Type A (PCR) (Not Detectd) Influenza Type B (PCR) (Not Detectd) RSV (PCR) (Not Detectd) SARS-CoV-2 (PCR) (Not Detectd) 09/03/23 09/03/23 09/03/23 Range/Units 09:51 09:51 09:51 WBC (3.8-10.6) k/uL RBC (4.30-5.90) m/uL Hgb (13.0-17.5) gm/dL Hct (39.0-53.0) % MCV (80.0-100.0) fL MCH (25.0-35.0) pg MCHC (31.0-37.0) g/dL RDW (11.5-15.5) % Plt Count (150-450) k/uL MPV Neutrophils % (Manual) % Band Neuts % (Manual) % Lymphocytes % (Manual) % Monocytes % (Manual) % Metamyelocytes % % Neutrophils # (Manual) (1.3-7.7) k/uL Lymphocytes # (Manual) (1.0-4.8) k/uL Monocytes # (Manual) (0-1.0) k/uL Metamyelocytes # (Man) (0) k/uL Nucleated RBCs (0-0) /100 WBC Manual Slide Review PT (10.0-12.5) sec INR (<1.2) APTT (22.0-30.0) sec Sodium 140 (137-145) mmol/L Potassium 3.9 (3.5-5.1) mmol/L Chloride 110 H (98-107) mmol/L Carbon Dioxide 20 L (22-30) mmol/L Anion Gap 10 mmol/L BUN 52 H (9-20) mg/dL Creatinine 0.73 (0.66-1.25) mg/dL Est GFR (CKD-EPI)AfAm >90 (>60 ml/min/1.73 sqM) Est GFR (CKD-EPI)NonAf 85 (>60 ml/min/1.73 sqM) Glucose 120 H (74-99) mg/dL Plasma Lactic Acid Jose Antonio 2.1 H* (0.7-2.0) mmol/L Calcium 8.2 L (8.4-10.2) mg/dL Magnesium 2.6 H (1.6-2.3) mg/dL Total Bilirubin 0.7 (0.2-1.3) mg/dL AST 46 (17-59) U/L ALT 25 (4-49) U/L Alkaline Phosphatase 95 (38-126) U/L Troponin I <0.012 (0.000-0.034) ng/mL Total Protein 5.1 L (6.3-8.2) g/dL Albumin 2.5 L (3.5-5.0) g/dL Urine Color Urine Appearance (Clear) Urine pH (5.0-8.0) Ur Specific Beaver (1.001-1.035) Urine Protein (Negative) Urine Glucose (UA) (Negative) Urine Ketones (Negative) Urine Blood (Negative) Urine Nitrite (Negative) Urine Bilirubin (Negative) Urine Urobilinogen (<2.0) mg/dL Ur Leukocyte Esterase (Negative) Influenza Type A (PCR) (Not Detectd) Influenza Type B (PCR) (Not Detectd) RSV (PCR) (Not Detectd) SARS-CoV-2 (PCR) (Not Detectd) 09/03/23 Range/Units 09:51 WBC (3.8-10.6) k/uL RBC (4.30-5.90) m/uL Hgb (13.0-17.5) gm/dL Hct (39.0-53.0) % MCV (80.0-100.0) fL MCH (25.0-35.0) pg MCHC (31.0-37.0) g/dL RDW (11.5-15.5) % Plt Count (150-450) k/uL MPV Neutrophils % (Manual) % Band Neuts % (Manual) % Lymphocytes % (Manual) % Monocytes % (Manual) % Metamyelocytes % % Neutrophils # (Manual) (1.3-7.7) k/uL Lymphocytes # (Manual) (1.0-4.8) k/uL Monocytes # (Manual) (0-1.0) k/uL Metamyelocytes # (Man) (0) k/uL Nucleated RBCs (0-0) /100 WBC Manual Slide Review PT (10.0-12.5) sec INR (<1.2) APTT (22.0-30.0) sec Sodium (137-145) mmol/L Potassium (3.5-5.1) mmol/L Chloride (98-107) mmol/L Carbon Dioxide (22-30) mmol/L Anion Gap mmol/L BUN (9-20) mg/dL Creatinine (0.66-1.25) mg/dL Est GFR (CKD-EPI)AfAm (>60 ml/min/1.73 sqM) Est GFR (CKD-EPI)NonAf (>60 ml/min/1.73 sqM) Glucose (74-99) mg/dL Plasma Lactic Acid Jose Antonio (0.7-2.0) mmol/L Calcium (8.4-10.2) mg/dL Magnesium (1.6-2.3) mg/dL Total Bilirubin (0.2-1.3) mg/dL AST (17-59) U/L ALT (4-49) U/L Alkaline Phosphatase (38-126) U/L Troponin I (0.000-0.034) ng/mL Total Protein (6.3-8.2) g/dL Albumin (3.5-5.0) g/dL Urine Color Urine Appearance (Clear) Urine pH (5.0-8.0) Ur Specific Beaver (1.001-1.035) Urine Protein (Negative) Urine Glucose (UA) (Negative) Urine Ketones (Negative) Urine Blood (Negative) Urine Nitrite (Negative) Urine Bilirubin (Negative) Urine Urobilinogen (<2.0) mg/dL Ur Leukocyte Esterase (Negative) Influenza Type A (PCR) Not Detected (Not Detectd) Influenza Type B (PCR) Not Detected (Not Detectd) RSV (PCR) Not Detected (Not Detectd) SARS-CoV-2 (PCR) Not Detected (Not Detectd) Disposition Clinical Impression: Weakness, Dehydration Disposition: ADMITTED IP TO THIS HOSP Is patient prescribed a controlled substance at d/c from ED?: No Referrals: Radha Collins MD [Primary Care Provider] - 1-2 days Time of Disposition: 11:16
[2023-09-03 10:11] LABS: HCT 46.5 % (39.0-53.0); HGB 15.6 gm/dL (13.0-17.5); MCHC 33.5 g/dL (31.0-37.0); MCV 95.4 fL (80.0-100.0); Mean Platelet Volume 8.6; Platelet Count 234 k/uL (150-450); RBC 4.87 m/uL (4.30-5.90); RDW 15.8 % (11.5-15.5)
--- NOTE | 2023-09-03 10:22 | XR ---
EXAMINATION TYPE: XR chest 2V DATE OF EXAM: 09/03/2023 10:18 AM CLINICAL INDICATION:Male, 83 years old with history of Weakness; H COMPARISON: Chest radiographs from 03/12/2023. TECHNIQUE: XR chest 2V Frontal and lateral views of the chest. FINDINGS: Lungs/Pleura: Lung glands, There is flattening of the diaphragm with increased lucency of the lungs. No evidence of pneumothorax, pleural effusion or focal consolidation. Pulmonary vascularity: Unremarkable. Heart/mediastinum: Cardiomediastinal silhouette is unremarkable. Musculoskeletal: No acute osseous pathology. IMPRESSION: 1. Low lung volumes, No acute cardiopulmonary disease process. 2. COPD changes.
[2023-09-03 10:23] LABS: INR 1.1 (<1.2); Partial Thromboplastin Time 24.4 sec (22.0-30.0)
--- NOTE | 2023-09-03 10:31 | CT ---
EXAMINATION TYPE: CT brain wo con DATE OF EXAM: 09/03/2023 HISTORY: weakness CT DLP: 1200.4 mGycm. Automated Exposure Control for Dose Reduction was Utilized. TECHNIQUE: CT scan of the head is performed without contrast. COMPARISON: Prior CT brain August 20, 2023. FINDINGS: There is no acute intracranial hemorrhage or midline shift identified. There is mild to m oderate diffuse ventricular and sulcal prominence redemonstrated. There is mild to moderate low-atte nuation in the periventricular white matter redemonstrated. The globes are intact and the visualized sinuses are clear. IMPRESSION: No acute intracranial hemorrhage or midline shift. There is [id number] diffuse ag e-related cerebral atrophy and chronic small vessel ischemic change redemonstrated. No significant c hange from prior.
[2023-09-03 10:36] LABS: ALT 25 U/L (4-49); AST 46 U/L (17-59); African American GFR (CKD) >90 (>60 ml/min/1.73 sqM); Albumin 2.5 g/dL (3.5-5.0); Alkaline Phosphatase 95 U/L (38-126); Anion Gap 10 mmol/L; Blood Urea Nitrogen 52 mg/dL (9-20); Calcium 8.2 mg/dL (8.4-10.2); Carbon Dioxide 20 mmol/L (22-30); Chloride 110 mmol/L (98-107); Glucose 120 mg/dL (74-99); Magnesium 2.6 mg/dL (1.6-2.3); Non-African American GFR(CKD) 85 (>60 ml/min/1.73 sqM); Potassium 3.9 mmol/L (3.5-5.1); Sodium 140 mmol/L (137-145); Total Bilirubin 0.7 mg/dL (0.2-1.3); Total Protein 5.1 g/dL (6.3-8.2)
[2023-09-03 10:45] LABS: Band Neutrophils % 6 %; Metamyelocytes # (M) 0.12 k/uL (0); Metamyelocytes % 1 %; Monocytes # (M) 0.72 k/uL (0-1.0); Neutrophils % (M) 82 %; Nucleated Red Blood Cells 0 /100 WBC (0-0); Total Cells Counted 100
[2023-09-03 10:51] LABS: Appearance,Urine Clear (Clear); Bilirubin,Urine Negative (Negative); Blood,Urine Negative (Negative); Color,Urine Yellow; Glucose,Urine (UA) Negative (Negative); Ketones,Urine 2+ (Negative); Leukocyte Esterase,Urine Negative (Negative); Nitrite,Urine Negative (Negative); Protein,Urine Trace (Negative); Specific Gravity,Urine 1.028 (1.001-1.035); Urobilinogen,Urine <2.0 mg/dL (<2.0)
[2023-09-03] MEDS ORDERED: NALOXONE 0.4 MG/ML 1 ML VIAL IV PRN (11:19)
[2023-09-03] MEDS ORDERED: PANTOPRAZOLE 40 MG/10 ML VIAL IV SCH (11:30)
[2023-09-03] MEDS: SODIUM CHLORIDE 0.9% 1,000 ML IV SCH ×2 (12:36→18:27)
[2023-09-03] MEDS ORDERED: ACETAMINOPHEN TAB 325 MG TAB PO PRN (15:05)
[2023-09-03] MEDS ORDERED: SIMETHICONE 80 MG CHEWABLE PO PRN (15:05)
[2023-09-03] MEDS ORDERED: guaiFENesin SYRUP 100MG/5ML 200 MG/10 ML CUP PO PRN (15:05)
[2023-09-03] MEDS: FERROUS SULFATE 325 MG TAB PO SCH (15:59)
[2023-09-03] MEDS: ASPIRIN 81 MG PO SCH (15:59)
[2023-09-03] MEDS: SUCRALFATE 1 GM TAB PO SCH (16:10)
[2023-09-03] MEDS ORDERED: METHYL SALICYLATE-MENTHOL OINT (3 OZ TUBE) TOPICAL PRN (21:00)
[2023-09-03] MEDS: ACETAMINOPHEN TAB 325 MG TAB PO SCH (22:38)
[2023-09-03] MEDS: KETOTIFEN 0.025% OPHTH DROPS 5 ML BTL BOTH EYES SCH (22:39)
[2023-09-03] MEDS: DONEPEZIL 10 MG TAB PO SCH (22:39)
[2023-09-03] MEDS: [UNRECOGNIZED DRUG - OTHER] BOTH EYES SCH (22:40)
[2023-09-03] MEDS: PANTOPRAZOLE 40 MG TABLET PO SCH (22:40)
[2023-09-03] MEDS: MEMANTINE 5 MG TAB PO SCH (22:40)
[2023-09-04] MEDS: SODIUM CHLORIDE 0.9% 1,000 ML IV SCH (07:34)
[2023-09-04] MEDS: CARBIDOPA-LEVODOPA 25-100 MG 1 EACH TAB PO SCH ×2 (08:36→12:07)
[2023-09-04] MEDS: SUCRALFATE 1 GM TAB PO SCH ×3 (08:36→16:33)
[2023-09-04] MEDS: FERROUS SULFATE 325 MG TAB PO SCH (08:37)
[2023-09-04] MEDS: ASPIRIN 81 MG PO SCH (08:37)
[2023-09-04] MEDS: MEMANTINE 5 MG TAB PO SCH ×2 (08:37→19:55)
[2023-09-04] MEDS: MULTIVITAMINS, THERA 1 EACH TAB PO SCH (08:37)
[2023-09-04] MEDS: polyethylene glycoL 3350 17 GM POWD.PACK PO SCH (08:37)
[2023-09-04] MEDS: ENOXAPARIN 40 MG/0.4 ML SYRINGE SQ SCH (08:47)
[2023-09-04 08:51] LABS: ALT 34 U/L (10-49); AST 35 U/L (14-35); Albumin 2.5 g/dL (3.8-4.9); Albumin/Globulin Ratio 1.19 Ratio (1.60-3.17); Alkaline Phosphatase 76 U/L (41-126); BUN/Creat Ratio 52.75 Ratio (12.00-20.00); Blood Urea Nitrogen 42.2 mg/dL (9.0-27.0); Calcium 8.3 mg/dL (8.7-10.3); Carbon Dioxide 24.3 mmol/L (21.6-31.8); Chloride 112 mmol/L (96-109); Globulin 2.1 g/dL (1.6-3.3); Glucose 104 mg/dL (70-110); Magnesium 2.5 mg/dL (1.5-2.4); Potassium 3.9 mmol/L (3.5-5.5); Sodium 148 mmol/L (135-145); Total Bilirubin 0.5 mg/dL (0.3-1.2); Total Protein 4.6 g/dL (6.2-8.2)
[2023-09-04] MEDS ORDERED: NON FORMULARY DRUG (Lactose-Reduced Food [Ensure Plus] 237 ML Ml) PO SCH (09:00)
--- NOTE | 2023-09-04 09:11 | P.HPIM ---
History of Present Illness H&P Date: 09/03/23 Davin Simons, is an 83-year-old male patient, resident of a halfway, who presented to [facility] emergency room, with a chief complaint of generalized weakness and acute mental status changes, patient was noticed to be somnolent, and nonverbal at the halfway, he was sent to emergency room for evaluation. He was evaluated in the emergency room vital examination on presentation revealed a temperature of 97.8 pulse 72 respiration 20 blood pressure 100/64 pulse ox 95% on room air Laboratory data revealed a white blood count of 12.0 hemoglobin 15.6 platelet count 234 sodium 140 potassium 3.9 chloride 110 CO2 20 BUN 52 creatinine 0.73 Testing in the emergency room revealed chest x-ray done in the emergency room revealed lower lung volumes no acute cardiopulmonary disease process and COPD changes, EKG done in the emergency room revealed sinus rhythm with occasional ventricular premature complexes and moderate intraventricular conduction delay, computed tomography scan of the brain revealed no acute intracranial hemorrhage or midline shift. Patient was admitted to medical floor for further evaluation and treatment Past Medical History Past Medical History: No Reported History, Dementia Additional Past Medical History / Comment(s): Ing. Hernia; Hx of kidney stones History of Any Multi-Drug Resistant Organisms: None Reported Past Surgical History: No Surgical Hx Reported Additional Past Surgical History / Comment(s): colonoscopy; Past Anesthesia/Blood Transfusion Reactions: No Reported Reaction Past Psychological History: Anxiety, Depression Smoking Status: Unknown if ever smoked Past Alcohol Use History: None Reported Past Drug Use History: None Reported - Past Family History Mother History Unknown: Yes Family Medical History: Diabetes Mellitus Medications and Allergies Home Medications Medication Instructions Recorded Confirmed Type Simethicone [Gas-X] 125 mg PO ACHS PRN 06/03/18 09/03/23 History Acetaminophen [Tylenol Arthritis] 650 mg PO HS 08/12/22 09/03/23 History Donepezil HCl [Aricept] 10 mg PO HS 08/12/22 09/03/23 History Multivitamins, Thera [Multivitamin 1 tab PO DAILY 01/22/23 09/03/23 History (formulary)] Ferrous Sulfate [Feosol] 325 mg PO DAILY 30 Days #30 tab 03/20/23 09/03/23 Rx Acetaminophen [Tylenol] 650 mg PO Q4H PRN 09/03/23 09/03/23 History Aspirin 81 mg PO DAILY 09/03/23 09/03/23 History Carbidopa-Levodopa 25-100 mg 1 tab PO BID@0800,1200 09/03/23 09/03/23 History [Sinemet 25-100] Ketotifen Fumarate [Alaway] 1 drop BOTH EYES HS 09/03/23 09/03/23 History Lactose-Reduced Food [Ensure Plus] 237 ml PO DAILY 09/03/23 09/03/23 History Memantine [Namenda] 5 mg PO BID 09/03/23 09/03/23 History Menthol [Biofreeze] 1 applic TOPICAL BID 09/03/23 09/03/23 History Ocusoft Lid Scrub Plus External 1 applic BOTH EYES HS 09/03/23 09/03/23 History Pad (Eyelid Cleansers) Omeprazole [PriLOSEC] 20 mg PO HS 09/03/23 09/03/23 History Sucralfate [Carafate] 1 gm PO AC-TID@08,12,17 09/03/23 09/03/23 History guaiFENesin [guaiFENesin Oral 200 mg PO Q4H PRN 09/03/23 09/03/23 History Solution] polyethylene glycoL 3350 [Miralax] 17 gm PO DAILY 09/03/23 09/03/23 History Allergies Allergy/AdvReac Type Severity Reaction Status Date / Time garlic Allergy "tears his Verified 09/03/23 09:38 gut up" Physical Exam Vitals: Vital Signs Temp Pulse Resp BP Pulse Ox 09/03/23 14:43 98.2 F 85 18 122/74 97 09/03/23 09:34 97.8 F 72 20 100/64 95 Intake and Output 09/03/23 09/03/23 09/03/23 06:59 14:59 22:59 Other: Weight 70.307 kg In general patient is somnolent and nonverbal in no apparent distress HEENT head normocephalic and atraumatic Neck is supple no JVD no goiter no lymphadenopathy no carotid bruit Chest examination is clear to auscultation no crackles no wheezing Cardiac exam reveals regular heart sounds S1 and S2 no gallops no murmurs Abdomen is soft nontender no organomegaly with normal bowel sounds Extremity exam reveals no edema no cyanosis or clubbing Neurological examination reveals no gross focal deficits Results CBC & Chem 7: 09/03/23 09:51 09/03/23 09:51 Labs: Abnormal Lab Results - Last 24 Hours (Table) 09/03/23 09/03/23 09/03/23 Range/Units 09:51 09:51 09:51 WBC 12.0 H (3.8-10.6) k/uL RDW 15.8 H (11.5-15.5) % Neutrophils # (Manual) 10.50 H (1.3-7.7) k/uL Lymphocytes # (Manual) 0.60 L (1.0-4.8) k/uL Metamyelocytes # (Man) 0.12 H (0) k/uL Chloride 110 H (98-107) mmol/L Carbon Dioxide 20 L (22-30) mmol/L BUN 52 H (9-20) mg/dL Glucose 120 H (74-99) mg/dL Plasma Lactic Acid Jose Antonio (0.7-2.0) mmol/L Calcium 8.2 L (8.4-10.2) mg/dL Magnesium 2.6 H (1.6-2.3) mg/dL Total Protein 5.1 L (6.3-8.2) g/dL Albumin 2.5 L (3.5-5.0) g/dL Urine Protein Trace H (Negative) Urine Ketones 2+ H (Negative) 09/03/23 09/03/23 Range/Units 09:51 12:48 WBC (3.8-10.6) k/uL RDW (11.5-15.5) % Neutrophils # (Manual) (1.3-7.7) k/uL Lymphocytes # (Manual) (1.0-4.8) k/uL Metamyelocytes # (Man) (0) k/uL Chloride (98-107) mmol/L Carbon Dioxide (22-30) mmol/L BUN (9-20) mg/dL Glucose (74-99) mg/dL Plasma Lactic Acid Ojse Antonio 2.1 H* 2.1 H* (0.7-2.0) mmol/L Calcium (8.4-10.2) mg/dL Magnesium (1.6-2.3) mg/dL Total Protein (6.3-8.2) g/dL Albumin (3.5-5.0) g/dL Urine Protein (Negative) Urine Ketones (Negative) Assessment and Plan Plan: Acute mental status changes Dehydration with acute kidney injury Underlying history of Parkinson disease Underlying history of peptic ulcer disease Underlying history of hypertension Underlying history of dementia Underlying history of anemia At this time patient is admitted to medical floor He was started on gentle IV hydration Home medications reviewed and reordered For DVT prophylaxis subcu Lovenox Will recheck labs in a.m.
[2023-09-04 09:23] LABS: Basophils # (M) 0 X 10*3/uL (0.00-0.10); HCT 44.1 % (39.6-50.0); HGB 14.7 g/dL (13.0-17.0); MCH 30.8 pg (27.0-32.0); MCHC 33.3 g/dL (32.0-37.0); MCV 92.3 FL (80.0-97.0); NRBC Per 100 WBC 0.06 X 10*3/uL (0.00-0.01); Platelet Count 250 X 10*3/uL (140-440); RBC 4.78 X 10*6/uL (4.40-5.60); RDW 18.4 % (11.5-14.5); WBC 10.15 X 10*3/uL (4.50-10.00)
--- NOTE | 2023-09-04 10:39 | P.PN ---
Subjective Progress Note Date: 09/04/23 Davin Simons, is an 83-year-old male patient, resident of a senior care, who presented to [facility] emergency room, with a chief complaint of generalized weakness and acute mental status changes, patient was noticed to be somnolent, and nonverbal at the senior care, he was sent to emergency room for evaluation. He was evaluated in the emergency room vital examination on presentation revealed a temperature of 97.8 pulse 72 respiration 20 blood pressure 100/64 pulse ox 95% on room air Laboratory data revealed a white blood count of 12.0 hemoglobin 15.6 platelet count 234 sodium 140 potassium 3.9 chloride 110 CO2 20 BUN 52 creatinine 0.73 Testing in the emergency room revealed chest x-ray done in the emergency room revealed lower lung volumes no acute cardiopulmonary disease process and COPD changes, EKG done in the emergency room revealed sinus rhythm with occasional ventricular premature complexes and moderate intraventricular conduction delay, computed tomography scan of the brain revealed no acute intracranial hemorrhage or midline shift. Patient was admitted to medical floor for further evaluation and treatment On 09/04/2023 patient currently resting in bed remains confused with limited responsiveness. Repeat lactic acid 1.8. Sodium increasing to 148. Fluids adjusted to D5 half-normal at 75. Bun 42.2 creatinine 0.8. Per nursing staff patient failed swallow eval will consult speech therapy services to further evaluate. Patient's son at bedside. Requesting a neurology consult for concerns of dementia. Vital signs temp 97.9, heart rate 89, respiratory rate 18, blood pressure 150/75 with pulse ox of 95% on room air Objective - Vital Signs Vital signs: Vital Signs Temp 97.9 F 09/04/23 07:00 Pulse 89 09/04/23 07:00 Resp 18 09/04/23 07:00 BP 150/75 09/04/23 07:00 Pulse Ox 95 09/04/23 07:00 FiO2 Intake & Output 09/03/23 09/04/23 09/04/23 18:59 06:59 18:59 Output Total 525 Balance -525 Weight 70.307 kg Output: Urine 525 Other: Voiding Method Diaper Diaper External Catheter External Catheter - Exam In general patient is somnolent and nonverbal in no apparent distress HEENT head normocephalic and atraumatic Neck is supple no JVD no goiter no lymphadenopathy no carotid bruit Chest examination is clear to auscultation no crackles no wheezing Cardiac exam reveals regular heart sounds S1 and S2 no gallops no murmurs Abdomen is soft nontender no organomegaly with normal bowel sounds Extremity exam reveals no edema no cyanosis or clubbing Neurological examination reveals no gross focal deficits - Labs CBC & Chem 7: 09/04/23 05:57 09/04/23 05:57 Labs: Abnormal Lab Results - Last 24 Hours (Table) 09/03/23 09/03/23 09/03/23 Range/Units 09:51 09:51 09:51 WBC (4.50-10.00) X 10*3/uL RDW (11.5-14.5) % Neutrophils # (Manual) 10.50 H (1.3-7.7) k/uL Lymphocytes # (Manual) 0.60 L (1.0-4.8) k/uL Metamyelocytes # (Man) 0.12 H (0) k/uL NRBC/100 WBC Diff (0.00-0.01) X 10*3/uL Sodium (135-145) mmol/L Chloride 110 H (98-107) mmol/L Carbon Dioxide 20 L (22-30) mmol/L BUN 52 H (9-20) mg/dL BUN/Creatinine Ratio (12.00-20.00) Ratio Glucose 120 H (74-99) mg/dL Plasma Lactic Acid Jose Antonio (0.7-2.0) mmol/L Calcium 8.2 L (8.4-10.2) mg/dL Magnesium 2.6 H (1.6-2.3) mg/dL Total Protein 5.1 L (6.3-8.2) g/dL Albumin 2.5 L (3.5-5.0) g/dL Albumin/Globulin Ratio (1.60-3.17) Ratio Urine Protein Trace H (Negative) Urine Ketones 2+ H (Negative) 09/03/23 09/03/23 09/04/23 Range/Units 12:48 15:33 05:57 WBC 10.15 H (4.50-10.00) X 10*3/uL RDW 18.4 H (11.5-14.5) % Neutrophils # (Manual) (1.3-7.7) k/uL Lymphocytes # (Manual) (1.0-4.8) k/uL Metamyelocytes # (Man) (0) k/uL NRBC/100 WBC Diff 0.06 H (0.00-0.01) X 10*3/uL Sodium (135-145) mmol/L Chloride (98-107) mmol/L Carbon Dioxide (22-30) mmol/L BUN (9-20) mg/dL BUN/Creatinine Ratio (12.00-20.00) Ratio Glucose (74-99) mg/dL Plasma Lactic Acid Jose Antonio 2.1 H* 2.3 H* (0.7-2.0) mmol/L Calcium (8.4-10.2) mg/dL Magnesium (1.6-2.3) mg/dL Total Protein (6.3-8.2) g/dL Albumin (3.5-5.0) g/dL Albumin/Globulin Ratio (1.60-3.17) Ratio Urine Protein (Negative) Urine Ketones (Negative) 09/04/23 Range/Units 05:57 WBC (4.50-10.00) X 10*3/uL RDW (11.5-14.5) % Neutrophils # (Manual) (1.3-7.7) k/uL Lymphocytes # (Manual) (1.0-4.8) k/uL Metamyelocytes # (Man) (0) k/uL NRBC/100 WBC Diff (0.00-0.01) X 10*3/uL Sodium 148 H (135-145) mmol/L Chloride 112 H (98-107) mmol/L Carbon Dioxide (22-30) mmol/L BUN 42.2 H (9-20) mg/dL BUN/Creatinine Ratio 52.75 H (12.00-20.00) Ratio Glucose (74-99) mg/dL Plasma Lactic Acid Jose Antonio (0.7-2.0) mmol/L Calcium 8.3 L (8.4-10.2) mg/dL Magnesium 2.5 H (1.6-2.3) mg/dL Total Protein 4.6 L (6.3-8.2) g/dL Albumin 2.5 L (3.5-5.0) g/dL Albumin/Globulin Ratio 1.19 L (1.60-3.17) Ratio Urine Protein (Negative) Urine Ketones (Negative) Assessment and Plan Plan: Acute mental status changes Dehydration with acute kidney injury Underlying history of Parkinson disease Underlying history of peptic ulcer disease Underlying history of hypertension Underlying history of dementia Underlying history of anemia At this time patient is admitted to medical floor He was started on gentle IV hydration Speech service is consulted to assess swallow Neurology services consulted Home medications reviewed and reordered For DVT prophylaxis subcu Lovenox Will recheck labs in a.m.
[2023-09-04] MEDS ORDERED: ZINC OXIDE PASTE (Z-GUARD) 1 APPLIC TOPICAL PRN (12:03)
[2023-09-04] MEDS: DEXTROSE 5%-0.45% NACL 1,000 ML IV SCH (12:06)
[2023-09-04 12:58] LABS: Lymphocytes # (M) 0.81 X 10*3/uL (0.90-5.00); Macrocytosis (M) 2+; Monocytes # (M) 0.81 X 10*3/uL (0.20-1.00); Myelocytes % 1 % (0-0); Neutrophils # (M) 8.32 X 10*3/uL (1.80-7.70); Neutrophils % (M) 82 %
--- NOTE | 2023-09-04 15:12 | P.CNNES ---
History of Present Illness Consult date: 09/04/23 Requesting physician: Radha Collins Reason for Consult: ams History of Present Illness: This is an 83-year-old gentleman who presents to emergency department because of generalized weakness and confusion. The patient has underlying Parkinson and Dementia and resides in nursing facility. History is obtained from patient's nurse and medical records. It seems patient has been having severe worsening of confusion and per nurse was reported for about 1 week. Patient is on Sinemet 25-100 1 tab bid, Namenda 5mg bid, Aricept 10mg qhs. Some of the work-up during this hospital visit consisted of: Patient is afebrile. Initial wbc is 12K and repeat is 10K Sodium is 140, creatinine is 0.73. BUN is 52, possible AND vein is 2.1. Calcium is 8.2, magnesium 2.6 AST ALT is within normal limits u/a seems negative for UTI SARS-COV2, Influenza A/B and RSV PCR is not detected. CT head is reported as no acute intracranial hemorrhage or midline shift. There is mild to moderate diffuse-age related cerebral atrophy and chronic small vessel ischemic change redemostrated. No significant change from prior. I personally reviewed the CT of the head and there is no acute subacute ischemia. There is no mass effect. There is no acute or subacute bleed. Review of Systems Limited. Past Medical History Past Medical History: No Reported History, Dementia Additional Past Medical History / Comment(s): Ing. Hernia; Hx of kidney stones History of Any Multi-Drug Resistant Organisms: None Reported Past Surgical History: No Surgical Hx Reported Additional Past Surgical History / Comment(s): colonoscopy; Past Anesthesia/Blood Transfusion Reactions: No Reported Reaction Past Psychological History: Anxiety, Depression Smoking Status: Unknown if ever smoked Past Alcohol Use History: None Reported Past Drug Use History: None Reported - Past Family History Mother History Unknown: Yes Family Medical History: Diabetes Mellitus Medications and Allergies Home Medications Medication Instructions Recorded Confirmed Type Simethicone [Gas-X] 125 mg PO ACHS PRN 06/03/18 09/03/23 History Acetaminophen [Tylenol Arthritis] 650 mg PO HS 08/12/22 09/03/23 History Donepezil HCl [Aricept] 10 mg PO HS 08/12/22 09/03/23 History Multivitamins, Thera [Multivitamin 1 tab PO DAILY 01/22/23 09/03/23 History (formulary)] Ferrous Sulfate [Feosol] 325 mg PO DAILY 30 Days #30 tab 03/20/23 09/03/23 Rx Acetaminophen [Tylenol] 650 mg PO Q4H PRN 09/03/23 09/03/23 History Aspirin 81 mg PO DAILY 09/03/23 09/03/23 History Carbidopa-Levodopa 25-100 mg 1 tab PO BID@0800,1200 09/03/23 09/03/23 History [Sinemet 25-100] Ketotifen Fumarate [Alaway] 1 drop BOTH EYES HS 09/03/23 09/03/23 History Lactose-Reduced Food [Ensure Plus] 237 ml PO DAILY 09/03/23 09/03/23 History Memantine [Namenda] 5 mg PO BID 09/03/23 09/03/23 History Menthol [Biofreeze] 1 applic TOPICAL BID 09/03/23 09/03/23 History Ocusoft Lid Scrub Plus External 1 applic BOTH EYES HS 09/03/23 09/03/23 History Pad (Eyelid Cleansers) Omeprazole [PriLOSEC] 20 mg PO HS 09/03/23 09/03/23 History Sucralfate [Carafate] 1 gm PO AC-TID@08,12,17 09/03/23 09/03/23 History guaiFENesin [guaiFENesin Oral 200 mg PO Q4H PRN 09/03/23 09/03/23 History Solution] polyethylene glycoL 3350 [Miralax] 17 gm PO DAILY 09/03/23 09/03/23 History Allergies Allergy/AdvReac Type Severity Reaction Status Date / Time garlic Allergy "tears his Verified 09/03/23 09:38 gut up" Physical Examination - Vital Signs Vital Signs: Vital Signs Temp Pulse Pulse Pulse Resp BP BP 09/04/23 07:00 97.9 F 89 18 150/75 09/04/23 02:12 97.5 F L 95 16 128/65 09/04/23 01:39 94 99 16 09/03/23 21:05 94 99 16 09/03/23 20:22 97.7 F 94 16 125/75 09/03/23 17:57 98.2 F 99 20 143/70 09/03/23 16:00 75 16 115/88 09/03/23 15:00 68 16 131/77 Pulse Ox 09/04/23 07:00 95 09/04/23 02:12 96 09/04/23 01:39 09/03/23 21:05 09/03/23 20:22 96 09/03/23 17:57 95 09/03/23 16:00 97 09/03/23 15:00 97 Intake and Output 09/03/23 09/04/23 09/04/23 22:59 06:59 14:59 Output Total 400 125 Balance -400 -125 Output: Urine 400 125 Other: Voiding Method Diaper Diaper Diaper External Catheter External Catheter External Catheter General: Lying and does not appear in acute distress. Neuro: Very Limited. Patient is severely drowsy. He has his mouth open and is not verbalizing or following commands. He minimally open eyes briefly and pupils are 2-3mm and reactive to light. No facial weakness. Motor: Strength is limited in assessment because of his overall condition. He has minimal spontaneous movement of bilateral uppers in which moves hands and grabs on blanket. Has mild increase tone in bilateral uppers. Normal bulk. Sensory: Unable to assess. Reflex: Unable to assess. Plantars: Mute. Results - Laboratory Findings CBC and BMP: 09/04/23 05:57 09/04/23 05:57 Abnormal Lab Findings: Abnormal Labs 09/03/23 09/03/23 09/03/23 09:51 09:51 09:51 WBC 12.0 H RDW 15.8 H Neutrophils # (Manual) 10.50 H Lymphocytes # (Manual) 0.60 L Metamyelocytes # (Man) 0.12 H NRBC/100 WBC Diff Macrocytosis (manual) Sodium Chloride 110 H Carbon Dioxide 20 L BUN 52 H BUN/Creatinine Ratio Glucose 120 H Plasma Lactic Acid Jose Antonio Calcium 8.2 L Magnesium 2.6 H Total Protein 5.1 L Albumin 2.5 L Albumin/Globulin Ratio Urine Protein Trace H Urine Ketones 2+ H 09/03/23 09/03/23 09/03/23 09:51 12:48 15:33 WBC RDW Neutrophils # (Manual) Lymphocytes # (Manual) Metamyelocytes # (Man) NRBC/100 WBC Diff Macrocytosis (manual) Sodium Chloride Carbon Dioxide BUN BUN/Creatinine Ratio Glucose Plasma Lactic Acid Jose Antonio 2.1 H* 2.1 H* 2.3 H* Calcium Magnesium Total Protein Albumin Albumin/Globulin Ratio Urine Protein Urine Ketones 09/04/23 09/04/23 05:57 05:57 WBC 10.15 H RDW 18.4 H Neutrophils # (Manual) Lymphocytes # (Manual) 0.81 L Metamyelocytes # (Man) NRBC/100 WBC Diff 0.06 H Macrocytosis (manual) 2+ A Sodium 148 H Chloride 112 H Carbon Dioxide BUN 42.2 H BUN/Creatinine Ratio 52.75 H Glucose Plasma Lactic Acid Jose Antonio Calcium 8.3 L Magnesium 2.5 H Total Protein 4.6 L Albumin 2.5 L Albumin/Globulin Ratio 1.19 L Urine Protein Urine Ketones Assessment and Plan Assessment: This is an 83-year-old gentleman with history of Parkinson's disease, dementia who presents because of generalized weakness and confusion. Per the nurse was reported to her that this has been going on for the last 1 week at least. Encephalopathy which is weakness. Is due to metabolic encephalopathy as well as probable progressive Parkinon's disease Parkinson's disease Dementia due to Parkinson's disease Hypernatremia Elevated BUN Elevated plasma like acid that resolved Plan: I ordered a routine EEG Also ordered vitamin B12, folate, TSH and ammonia level. Patient is resumed on his home medication of Sinemet 25-100mg 1 tab bid. I'm not sure how long he's been on the same medication or the Z been on a higher medication that that did not improve. We'll try to find out more information Patient is on home medication for Aricept and Namenda We'll defer the rest of the medical measure the primary team The plan was discussed with the patient nurse. I attempted to contact the patient and family members his 2 sons and the daughter in which the phone numbers were listed but I received a voice message. We'll attempt at a d ifferent time. Thank you for the consultation Time with Patient: Greater than 30
[2023-09-04] MEDS: ACETAMINOPHEN TAB 325 MG TAB PO SCH (19:53)
[2023-09-04] MEDS: PANTOPRAZOLE 40 MG TABLET PO SCH (19:55)
[2023-09-04] MEDS: DONEPEZIL 10 MG TAB PO SCH (19:55)
[2023-09-04] MEDS: KETOTIFEN 0.025% OPHTH DROPS 5 ML BTL BOTH EYES SCH (19:55)
[2023-09-04] MEDS: [UNRECOGNIZED DRUG - OTHER] BOTH EYES SCH (19:55)
--- NOTE | 2023-09-05 02:20 | EEG ---
ELECTROENCEPHALOGRAM REPORT CLINICAL HISTORY: This is an 83-year-old gentleman with a history of Parkinson disease with dementia with worsening of the confusion. The video EEG is obtained to evaluate for seizure epileptiform activity. Relevant medication is Aricept, Namenda. EEG type is a routine 21-channel EEG with video using the 10/20 electrode placement system. DESCRIPTION: Background consists of [id number] voltage of 5.5 to 6.5 hertz theta activity. At times, the background consists of nonrhythmic polymorphic delta activity. There is no physiological stage 2 sleep activation. There is no focal slowing. Interictal and ictal none. ACTIVATION PROCEDURE: Photic stimulation and hyperventilation are not performed. CLINICAL INTERPRETATION: This is an abnormal routine EEG. The background slowing is suggestive of moderate encephalopathy. Otherwise, there is no focal slowing, epileptiform discharges or seizure on the EEG. Clinical correlation is recommended. VIRY / MOMO: [id number] / MTDD
[2023-09-05] MEDS: DEXTROSE 5%-0.45% NACL 1,000 ML IV SCH ×2 (04:07→13:01)
[2023-09-05] MEDS: ENOXAPARIN 40 MG/0.4 ML SYRINGE SQ SCH (08:34)
[2023-09-05] MEDS: MEMANTINE 5 MG TAB PO SCH ×2 (08:40→22:00)
[2023-09-05] MEDS: ASPIRIN 81 MG PO SCH (08:40)
[2023-09-05] MEDS: SUCRALFATE 1 GM TAB PO SCH ×3 (08:40→17:52)
[2023-09-05] MEDS: polyethylene glycoL 3350 17 GM POWD.PACK PO SCH (08:40)
[2023-09-05] MEDS: MULTIVITAMINS, THERA 1 EACH TAB PO SCH (08:40)
[2023-09-05] MEDS: CARBIDOPA-LEVODOPA 25-100 MG 1 EACH TAB PO SCH ×3 (08:40→17:53)
[2023-09-05] MEDS: FERROUS SULFATE 325 MG TAB PO SCH (08:40)
[2023-09-05 09:38] LABS: BUN/Creat Ratio 42.12 Ratio (12.00-20.00); Blood Urea Nitrogen 33.7 mg/dL (9.0-27.0); Glucose 135 mg/dL (70-110)
[2023-09-05 09:39] LABS: ALT 37 U/L (10-49); AST 42 U/L (14-35); Albumin 2.5 g/dL (3.8-4.9); Albumin/Globulin Ratio 1.25 Ratio (1.60-3.17); Alkaline Phosphatase 77 U/L (41-126); Calcium 8.1 mg/dL (8.7-10.3); Carbon Dioxide 22.8 mmol/L (21.6-31.8); Chloride 117 mmol/L (96-109); Potassium 3.8 mmol/L (3.5-5.5); Sodium 151 mmol/L (135-145); Total Bilirubin 0.5 mg/dL (0.3-1.2); Total Protein 4.5 g/dL (6.2-8.2)
[2023-09-05 10:24] LABS: Basophils # (A) 0 X 10*3/uL (0.00-0.10); Basophils % (A) 0 %; Eosinophils # (A) 0.02 X 10*3/uL (0.04-0.35); Eosinophils % (A) 0.2 %; HCT 42.4 % (39.6-50.0); HGB 14.3 g/dL (13.0-17.0); Lymphocytes # (A) 1.52 X 10*3/uL (0.90-5.00); MCH 31.4 pg (27.0-32.0); MCHC 33.7 g/dL (32.0-37.0); MCV 93.2 FL (80.0-97.0); Mean Platelet Volume 12.1 FL (9.5-12.2); Monocytes # (A) 0.67 X 10*3/uL (0.20-1.00); Monocytes % (A) 6.2 %; NRBC Per 100 WBC 0.04 X 10*3/uL (0.00-0.01); Neutrophils # (A) 8.23 X 10*3/uL (1.80-7.70); Neutrophils % (A) 75.6 %; Platelet Count 268 X 10*3/uL (140-440); RBC 4.55 X 10*6/uL (4.40-5.60); RBC Morphology Normal (Normal); WBC 10.88 X 10*3/uL (4.50-10.00)
[2023-09-05] MEDS: SODIUM CHLORIDE 0.45% 1,000 ML IV SCH ×2 (12:01→22:53)
--- NOTE | 2023-09-05 12:31 | P.PN ---
Subjective Progress Note Date: 09/05/23 Davin Simons, is an 83-year-old male patient, resident of a group home, who presented to [facility] emergency room, with a chief complaint of generalized weakness and acute mental status changes, patient was noticed to be somnolent, and nonverbal at the group home, he was sent to emergency room for evaluation. He was evaluated in the emergency room vital examination on presentation revealed a temperature of 97.8 pulse 72 respiration 20 blood pressure 100/64 pulse ox 95% on room air Laboratory data revealed a white blood count of 12.0 hemoglobin 15.6 platelet count 234 sodium 140 potassium 3.9 chloride 110 CO2 20 BUN 52 creatinine 0.73 Testing in the emergency room revealed chest x-ray done in the emergency room revealed lower lung volumes no acute cardiopulmonary disease process and COPD changes, EKG done in the emergency room revealed sinus rhythm with occasional ventricular premature complexes and moderate intraventricular conduction delay, computed tomography scan of the brain revealed no acute intracranial hemorrhage or midline shift. Patient was admitted to medical floor for further evaluation and treatment On 09/04/2023 patient currently resting in bed remains confused with limited responsiveness. Repeat lactic acid 1.8. Sodium increasing to 148. Fluids adjusted to D5 half-normal at 75. Bun 42.2 creatinine 0.8. Per nursing staff patient failed swallow eval will consult speech therapy services to further evaluate. Patient's son at bedside. Requesting a neurology consult for concerns of dementia. Vital signs temp 97.9, heart rate 89, respiratory rate 18, blood pressure 150/75 with pulse ox of 95% on room air On 09/05/2023 patient was seen and examined on the medical floor he is somnolent responsive to stimuli, in no apparent distress, patient is nothing by mouth, IV fluid was increased to 100 mL per hour, family is at the bedside in case was discussed in details with them, at this time they are agreeable for NG tube placement for medication and nutrition, will follow up closely on progress. Objective - Vital Signs Vital signs: Vital Signs Temp 97.7 F 09/05/23 07:31 Pulse 99 09/05/23 07:31 Resp 18 09/05/23 07:31 BP 115/69 09/05/23 07:31 Pulse Ox 92 L 09/05/23 07:31 FiO2 Intake & Output 09/04/23 09/05/2324 18:59 06:59 18:59 Output Total 50 100 Balance -50 -100 Output: Urine 50 100 Other: Voiding Method Diaper Diaper External Catheter External Catheter # Voids 1 - Exam In general patient is somnolent and nonverbal in no apparent distress HEENT head normocephalic and atraumatic Neck is supple no JVD no goiter no lymphadenopathy no carotid bruit Chest examination is clear to auscultation no crackles no wheezing Cardiac exam reveals regular heart sounds S1 and S2 no gallops no murmurs Abdomen is soft nontender no organomegaly with normal bowel sounds Extremity exam reveals no edema no cyanosis or clubbing Neurological examination reveals no gross focal deficits - Labs CBC & Chem 7: 09/05/23 03:59 09/05/23 03:59 Labs: Abnormal Lab Results - Last 24 Hours (Table) 09/04/23 09/04/23 Range/Units 05:57 12:19 Lymphocytes # (Manual) 0.81 L (0.90-5.00) X 10*3/uL Macrocytosis (manual) 2+ A Vitamin B12 2537.0 H (200.0-944.0) pg/mL Assessment and Plan Plan: Acute mental status changes Dehydration with acute kidney injury Underlying history of Parkinson disease Underlying history of peptic ulcer disease Underlying history of hypertension Underlying history of dementia Underlying history of anemia At this time patient is admitted to medical floor He was started on gentle IV hydration Speech service is consulted to assess swallow Neurology services consulted Home medications reviewed and reordered For DVT prophylaxis subcu Lovenox Will recheck labs in a.m.
--- NOTE | 2023-09-05 15:14 | P.PN ---
Subjective Progress Note Date: 09/05/23 I am following-up with patient and he is accompanied with his and two son's who are at bedside. Per family members he stated that the patient has history of dementia going on for several years as well as has Parkinson's going on for up proximally six-month and that he follows up with a neurologist Dr. Keen who placed him on Sinemet twice a day and he was doing well walking with his walker and the vocalizing in feeding himself but is seems about 1-2 weeks ago the patient had suspected sinus infection and was placed in antibiotic and after that he became severely confused and had drastic change in his condition. He continues to be severely encephalopathic. Objective - Vital Signs Vital signs: Vital Signs Temp 97.7 F 09/05/23 07:31 Pulse 99 09/05/23 08:00 Resp 18 09/05/23 08:00 BP 115/69 09/05/23 07:31 Pulse Ox 92 L 09/05/23 07:31 FiO2 Intake & Output 09/04/23 09/05/23 09/05/23 18:59 06:59 18:59 Output Total 50 100 Balance -50 -100 Weight 70.307 kg Output: Urine 50 100 Other: Voiding Method Diaper Diaper Diaper External Catheter External Catheter Indwelling Catheter # Voids 1 - Exam General: Lying and does not appear in acute distress. Neuro: Very Limited. Patient is severely drowsy. He has his mouth open and is not verbalizing or following commands. No facial weakness. Motor: Strength is limited in assessment because of his overall condition. No spontaneous movement. Has mild increase tone in bilateral uppers. Normal bulk. Sensory: Unable to assess. Reflex: Unable to assess. Plantars: Mute. Some of the work-up during this hospital visit consisted of: Patient is afebrile. Initial wbc is 12K and repeat is 10K Sodium is 140--151, creatinine is 0.73. BUN is 52, possible AND vein is 2.1. Calcium is 8.2, magnesium 2.6 AST ALT is within normal limits Vitamin B12: 2537 Serum folate 24.80 Ammonia 9 TSH: 0.514 u/a seems negative for UTI SARS-COV2, Influenza A/B and RSV PCR is not detected. CT head is reported as no acute intracranial hemorrhage or midline shift. There is mild to moderate diffuse-age related cerebral atrophy and chronic small vessel ischemic change redemostrated. No significant change from prior. I personally reviewed the CT of the head and there is no acute subacute ischemia. There is no mass effect. There is no acute or subacute bleed. Routine EEG: As abnormal. The background slowing is suggestive of moderate encephalopathy. Otherwise there is no focal slowing, epileptiform discharges or seizure on the EEG. - Labs CBC & Chem 7: 09/05/23 03:59 09/05/23 03:59 Labs: Abnormal Lab Results - Last 24 Hours (Table) 09/04/23 09/05/23 09/05/23 Range/Units 12:19 03:59 03:59 WBC 10.88 H (4.50-10.00) X 10*3/uL RDW 19.0 H (11.5-14.5) % Immature Gran # 0.44 H (0.00-0.04) X 10*3/uL Neutrophils # 8.23 H (1.80-7.70) X 10*3/uL Eosinophils # 0.02 L (0.04-0.35) X 10*3/uL NRBC/100 WBC Diff 0.04 H (0.00-0.01) X 10*3/uL Sodium 151 H (135-145) mmol/L Chloride 117 H (96-109) mmol/L BUN 33.7 H (9.0-27.0) mg/dL BUN/Creatinine Ratio 42.12 H (12.00-20.00) Ratio Glucose 135 H (70-110) mg/dL Calcium 8.1 L (8.7-10.3) mg/dL AST 42 H (14-35) U/L Total Protein 4.5 L (6.2-8.2) g/dL Albumin 2.5 L (3.8-4.9) g/dL Albumin/Globulin Ratio 1.25 L (1.60-3.17) Ratio Vitamin B12 2537.0 H (200.0-944.0) pg/mL Assessment and Plan Assessment: This is an 83-year-old gentleman with history of Parkinson's disease, dementia who presents because of generalized weakness and confusion. Per the nurse was reported to her that this has been going on for the last 1 -2 weeks and per family members had recent sinus infection and was given abx then became co nfused. Encephalopathy which is weakness. Is due to metabolic encephalopathy Worsening hyponatremia likely due to dehydration Elevated BUN trending down Hypermagnesemia mild. Parkinson's disease for about 6 months Demenia for past couple years but is able to feed self, communicate and walks with walker Dementia due to Parkinson's disease Hypernatremia Elevated BUN Elevated plasma like acid that resolved Plan: Patient is resumed on his home medication of Sinemet 25-100mg 1 tab bid and it seems he was doing well with medication. Recommend an NG tube or PEG tube to reintroduce his medication. I'll have that discussion between the primary and the family to assess which direction they want to go up. I ordered MRI the brain to rule out any stroke not seen on CT. Later was notified could be done and will attempt again next week. Patient is on home medication for Aricept and Namenda We'll defer the rest of the medical measure the primary team The plan was discussed with the patient's family members ( and two son's) and his primary attending and nurse. Time with Patient: Less than 30
--- NOTE | 2023-09-05 15:27 | XR ---
EXAMINATION TYPE: XR chest 1V DATE OF EXAM: 09/05/2023 COMPARISON: 09/03/2023 HISTORY: 83-year-old male NG tube placement TECHNIQUE: Single frontal view of the chest is obtained. FINDINGS: NG tube courses below the diaphragm. Side hole not well-visualized. Attention on follow-up . Low lung volumes with crowded vascular markings. Mild patchy density at the lung bases similar to s lightly improved. No other consolidation or pleural effusion seen. IMPRESSION: 1. NG tube courses below the diaphragm. The sidehole is not well seen. Attention on follow-up. 2. Ongoing hypoventilatory changes and bibasilar opacities, likely atelectasis.
--- NOTE | 2023-09-05 17:30 | XR ---
EXAMINATION TYPE: XR chest 1V DATE OF EXAM: 09/05/2023 COMPARISON: Earlier today HISTORY: 83-year-old male NG tube placement TECHNIQUE: Single frontal view of the chest is obtained. FINDINGS: Interval placement of NG tube. Low lung volumes with crowded vascular markings and some mi ld patchy basilar densities likely atelectasis. Heart margins largely obscured by the elevated hemidi aphragms. IMPRESSION: 1. Satisfactory NG tube. 2. Prominent hypoventilatory changes.
[2023-09-05] MEDS: DONEPEZIL 10 MG TAB PO SCH (21:59)
[2023-09-05] MEDS: ACETAMINOPHEN TAB 325 MG TAB PO SCH (21:59)
[2023-09-05] MEDS: PANTOPRAZOLE 40 MG TABLET PO SCH (22:00)
[2023-09-05] MEDS: [UNRECOGNIZED DRUG - OTHER] BOTH EYES SCH (22:54)
[2023-09-05] MEDS: KETOTIFEN 0.025% OPHTH DROPS 5 ML BTL BOTH EYES SCH (22:54)
[2023-09-06] MEDS: DEXTROSE 5%-0.45% NACL 1,000 ML IV SCH (02:12)
[2023-09-06] MEDS: MULTIVITAMINS, THERA 1 EACH TAB PO SCH (08:15)
[2023-09-06] MEDS: MEMANTINE 5 MG TAB PO SCH ×2 (08:15→21:04)
[2023-09-06] MEDS: SUCRALFATE 1 GM TAB PO SCH ×3 (08:15→16:47)
[2023-09-06] MEDS: FERROUS SULFATE 325 MG TAB PO SCH (08:15)
[2023-09-06] MEDS: ENOXAPARIN 40 MG/0.4 ML SYRINGE SQ SCH (08:15)
[2023-09-06] MEDS: ASPIRIN 81 MG PO SCH (08:15)
[2023-09-06] MEDS: polyethylene glycoL 3350 17 GM POWD.PACK PO SCH (08:15)
[2023-09-06] MEDS: CARBIDOPA-LEVODOPA 25-100 MG 1 EACH TAB PO SCH ×2 (08:15→12:55)
[2023-09-06] MEDS: SODIUM CHLORIDE 0.45% 1,000 ML IV SCH ×2 (08:16→18:29)
--- NOTE | 2023-09-06 11:19 | P.PN ---
Subjective Progress Note Date: 09/06/23 Davin Simons, is an 83-year-old male patient, resident of a long term, who presented to [facility] emergency room, with a chief complaint of generalized weakness and acute mental status changes, patient was noticed to be somnolent, and nonverbal at the long term, he was sent to emergency room for evaluation. He was evaluated in the emergency room vital examination on presentation revealed a temperature of 97.8 pulse 72 respiration 20 blood pressure 100/64 pulse ox 95% on room air Laboratory data revealed a white blood count of 12.0 hemoglobin 15.6 platelet count 234 sodium 140 potassium 3.9 chloride 110 CO2 20 BUN 52 creatinine 0.73 Testing in the emergency room revealed chest x-ray done in the emergency room revealed lower lung volumes no acute cardiopulmonary disease process and COPD changes, EKG done in the emergency room revealed sinus rhythm with occasional ventricular premature complexes and moderate intraventricular conduction delay, computed tomography scan of the brain revealed no acute intracranial hemorrhage or midline shift. Patient was admitted to medical floor for further evaluation and treatment On 09/04/2023 patient currently resting in bed remains confused with limited responsiveness. Repeat lactic acid 1.8. Sodium increasing to 148. Fluids adjusted to D5 half-normal at 75. Bun 42.2 creatinine 0.8. Per nursing staff patient failed swallow eval will consult speech therapy services to further evaluate. Patient's son at bedside. Requesting a neurology consult for concerns of dementia. Vital signs temp 97.9, heart rate 89, respiratory rate 18, blood pressure 150/75 with pulse ox of 95% on room air On 09/05/2023 patient was seen and examined on the medical floor he is somnolent responsive to stimuli, in no apparent distress, patient is nothing by mouth, IV fluid was increased to 100 mL per hour, family is at the bedside in case was discussed in details with them, at this time they are agreeable for NG tube placement for medication and nutrition, will follow up closely on progress. On 09/06/2023 patient remains somnolent. Patient's son at bedside. NG tube was placed patient started on tube feedings. Discussed with nursing staff to assess for urinary retention and place Barr catheter if needed to assess urinary output. Patient remains on half normal saline. Neurology services following. Objective - Vital Signs Vital signs: Vital Signs Temp 98.7 F 09/06/23 08:00 Pulse 98 09/06/23 08:00 Resp 18 09/06/23 08:00 BP 122/74 09/06/23 08:00 Pulse Ox 92 L 09/06/23 08:00 FiO2 Intake & Output 09/05/23 09/06/23 09/06/23 18:59 06:59 18:59 Intake Total 10 Output Total 100 100 Balance -100 -90 Weight 70.307 kg Intake: Tube Feeding 10 Output: Urine 100 100 Other: Voiding Method Diaper Diaper Diaper Indwelling Catheter Indwelling Catheter Indwelling Catheter # Voids 1 - Exam In general patient is somnolent and nonverbal in no apparent distress HEENT head normocephalic and atraumatic Neck is supple no JVD no goiter no lymphadenopathy no carotid bruit Chest examination is clear to auscultation no crackles no wheezing Cardiac exam reveals regular heart sounds S1 and S2 no gallops no murmurs Abdomen is soft nontender no organomegaly with normal bowel sounds Extremity exam reveals no edema no cyanosis or clubbing Neurological examination reveals no gross focal deficits - Labs CBC & Chem 7: 09/05/23 03:59 09/05/23 03:59 Assessment and Plan Assessment: Acute mental status changes Dehydration with acute kidney injury Underlying history of Parkinson disease Underlying history of peptic ulcer disease Underlying history of hypertension Underlying history of dementia Underlying history of anemia At this time patient is admitted to medical floor He was started on gentle IV hydration Speech service is consulted to assess swallow Neurology services consulted Home medications reviewed and reordered For DVT prophylaxis subcu Lovenox Will recheck labs in a.m.
[2023-09-06 13:27] LABS: Anisocytosis Slight; Basophils # (A) 0.1 k/uL (0-0.2); Basophils % (A) 1 %; Eosinophils # (A) 0.1 k/uL (0-0.7); Eosinophils % (A) 1 %; HCT 48.8 % (39.0-53.0); HGB 15.6 gm/dL (13.0-17.5); Lymphocytes # (A) 1.5 k/uL (1.0-4.8); Lymphocytes % (A) 14 %; MCH 31.1 pg (25.0-35.0); MCV 97.2 fL (80.0-100.0); Macrocytosis Slight; Mean Platelet Volume 8.8; Monocytes # (A) 0.5 k/uL (0-1.0); Monocytes % (A) 4 %; Neutrophils # (A) 8.4 k/uL (1.3-7.7); Neutrophils % (A) 80 %; Platelet Count 209 k/uL (150-450); RBC 5.02 m/uL (4.30-5.90); RDW 16.2 % (11.5-15.5); WBC 10.6 k/uL (3.8-10.6)
[2023-09-06 13:32] LABS: African American GFR (CKD) >90 (>60 ml/min/1.73 sqM); Anion Gap 7 mmol/L; Blood Urea Nitrogen 33 mg/dL (9-20); Carbon Dioxide 22 mmol/L (22-30); Chloride 117 mmol/L (98-107); Glucose 138 mg/dL (74-99); Non-African American GFR(CKD) >90 (>60 ml/min/1.73 sqM); Potassium 3.8 mmol/L (3.5-5.1); Sodium 146 mmol/L (137-145)
--- NOTE | 2023-09-06 14:09 | P.PN ---
Subjective Progress Note Date: 09/06/23 I am following-up with patient and per his nurse, his NG tube was placed yesterday and his medication was resumed but neurologically he is about the same. Objective - Vital Signs Vital signs: Vital Signs Temp 98.7 F 09/06/23 08:00 Pulse 98 09/06/23 08:00 Resp 18 09/06/23 08:00 BP 122/74 09/06/23 08:00 Pulse Ox 92 L 09/06/23 08:00 FiO2 Intake & Output 09/05/23 09/06/23 09/06/23 18:59 06:59 18:59 Intake Total 10 Output Total 100 100 187 Balance -100 -90 -187 Weight 70.307 kg Intake: Tube Feeding 10 Output: Urine 100 100 100 Post Void Residual 87 Other: Voiding Method Diaper Diaper Diaper Indwelling Catheter Indwelling Catheter Indwelling Catheter # Voids 1 - Exam General: Lying and does not appear in acute distress. HENT: Has NG tube. Neuro: Very Limited. Patient is severely drowsy. He has his mouth open and is not verbalizing or following commands. No facial weakness. Motor: Strength is limited in assessment because of his overall condition. No spontaneous movement. Has mild increase tone in bilateral uppers. Normal bulk. Sensory: Unable to assess. Reflex: Unable to assess. Plantars: Mute. Some of the work-up during this hospital visit consisted of: Patient is afebrile. Initial wbc is 12K and repeat is 10K Sodium is 140--151, creatinine is 0.73. BUN is 52, possible AND vein is 2.1. Calcium is 8.2, magnesium 2.6 AST ALT is within normal limits Vitamin B12: 2537 Serum folate 24.80 Ammonia 9 TSH: 0.514 u/a seems negative for UTI SARS-COV2, Influenza A/B and RSV PCR is not detected. CT head is reported as no acute intracranial hemorrhage or midline shift. There is mild to moderate diffuse-age related cerebral atrophy and chronic small vessel ischemic change redemostrated. No significant change from prior. I personally reviewed the CT of the head and there is no acute subacute ischemia. There is no mass effect. There is no acute or subacute bleed. Routine EEG: As abnormal. The background slowing is suggestive of moderate encephalopathy. Otherwise there is no focal slowing, epileptiform discharges or seizure on the EEG. - Labs CBC & Chem 7: 09/06/23 13:05 09/06/23 13:05 Labs: Abnormal Lab Results - Last 24 Hours (Table) 09/06/23 09/06/23 Range/Units 13: 13:05 RDW 16.2 H (11.5-15.5) % Neutrophils # 8.4 H (1.3-7.7) k/uL Sodium 146 H (137-145) mmol/L Chloride 117 H (98-107) mmol/L BUN 33 H (9-20) mg/dL Creatinine 0.61 L (0.66-1.25) mg/dL Glucose 138 H (74-99) mg/dL Calcium 8.0 L (8.4-10.2) mg/dL Assessment and Plan Assessment: This is an 83-year-old gentleman with history of Parkinson's disease, dementia who presents because of generalized weakness and confusion. Per the nurse was reported to her that this has been going on for the last 1 -2 weeks and per family members had recent sinus infection and was given abx then became confused. Encephalopathy which is weakness. Is due to metabolic encephalopathy Worsening hyponatremia likely due to dehydration Elevated BUN trending down Hypermagnesemia mild. Parkinson's disease for about 6 months Demenia for past couple years but is able to feed self, communicate and walks with walker Dementia due to Parkinson's disease Hypernatremia Elevated BUN Elevated plasma like acid that resolved Plan: Yesterday MRI the brain could not be done since per lab technician team "Could not connect coil over pt head due to patient anatomy. Pt kyphotic". Once his is more awake and responsive will reorder the MRI and attempt again to rule out any stroke or other central cause. In the meantime, will order a repeat CT head to assess if any change compared to prior CT head. Patient is resumed on his home medication of Sinemet 25-100mg 1 tab bid via NG tube and his no improvement in his neurological condition. He has been responsive to bid dose at home. Will reassess if need to go up to tid dose. Patient is on home medication for Aricept and Namenda We'll defer the rest of the medical measure the primary team. The plan was discussed with his nurse. Dr. Conklin will resume neurology service tomorrow A.M. Time with Patient: Less than 30
--- NOTE | 2023-09-06 15:05 | CT ---
EXAMINATION TYPE: CT brain wo con DATE OF EXAM: 09/06/2023 COMPARISON: 09/03/2023 HISTORY: 83-year-old male encephalopathy of unknown cause, altered mental status, confusion TECHNIQUE: Examination was done in axial plane without intravenous contrast. Coronal and sagittal r econstructions performed. CT DLP: 1307.6 mGycm Automated exposure control for dose reduction was used. FINDINGS: Mild to moderate bifrontal cerebral cortical volume loss. Mild central cerebral atrophy with secondar y mild prominence to the ventricular system. Multiple moderate patchy white matter hypodensities in p osterior hemispheres. Atherosclerotic calcifications in the carotid siphons. Partially empty sella. There is no evidence of acute intracranial hemorrhage, acute ischemic changes, mass, mass-effect, or extra-axial fluid collection. There is no effacement of cerebral sulci or basal subarachnoid cister ns. There is no hydrocephalus. There is no midline shift. Rodriguez-white matter distinction is preserv ed. Mild mucosal thickening left maxillary sinus. Mastoid air cells well pneumatized. Orbits and globes a re intact. IMPRESSION: Mild to moderate cerebral atrophy and mild patchy burden of chronic small vessel ischemic disease. No acute intracranial abnormality seen.
[2023-09-06] MEDS: VANCOMYCIN ORAL SOLUTION 250 MG/5 ML BOTTLE PO SCH (19:01)
[2023-09-06] MEDS: DONEPEZIL 10 MG TAB PO SCH (21:04)
[2023-09-06] MEDS: PANTOPRAZOLE 40 MG TABLET PO SCH (21:04)
[2023-09-06] MEDS: ACETAMINOPHEN TAB 325 MG TAB PO SCH (21:04)
[2023-09-06] MEDS: [UNRECOGNIZED DRUG - OTHER] BOTH EYES SCH (21:05)
[2023-09-06] MEDS: KETOTIFEN 0.025% OPHTH DROPS 5 ML BTL BOTH EYES SCH (21:05)
--- NOTE | 2023-09-06 23:22 | P.CONS ---
History of Present Illness - Reason for Consult Consult date: 09/06/23 - History of Present Illness Patient is a 83-year-old male with a past medical history significant for dementia anxiety depression and long-term resident patient was sent to the ER 3 days ago from the long-term concerning for generalized weakness and decreased talking patient usually communicates with the staff at [facility] when he came some however the patient has been less responsive and unable to provide any history patient apparently recently completed an antibiotic course for a sinus infection patient on presentation to the hospital was afebrile and no fever has been recorded subsequently patient was not tachycardic hypotensive or hypoxic patient did have white count of 10.15 with a left shift creatinine has been normal liver enzymes are normal urine was negative chest x-ray low lung volumes and COPD changes CT brain did not show any acute bleed patient did have persistent mental status changes from previous infectious disease consultation currently being evaluated by neurology and MRI could not be done because of positioning of his neck and the patient seem to be slightly rigid patient remains to be unresponsive did have NG placed for feeding and medication on admission he did not have any diarrhea however last night he did have 1 large episode and another episode of diarrhea this morning stool for C. difficile which came back positive patient was started on vancomycin infectious disease was consulted for further management most information has been obtained from medical chart talking nursing staff as the patient cannot provide any history Past Medical History Past Medical History: No Reported History, Dementia Additional Past Medical History / Comment(s): Ing. Hernia; Hx of kidney stones History of Any Multi-Drug Resistant Organisms: None Reported Past Surgical History: No Surgical Hx Reported Additional Past Surgical History / Comment(s): colonoscopy; Past Anesthesia/Blood Transfusion Reactions: No Reported Reaction Past Psychological History: Anxiety, Depression Smoking Status: Unknown if ever smoked Past Alcohol Use History: None Reported Past Drug Use History: None Reported - Past Family History Mother History Unknown: Yes Family Medical History: Diabetes Mellitus Medications and Allergies Home Medications Medication Instructions Recorded Confirmed Type Simethicone [Gas-X] 125 mg PO ACHS PRN 06/03/18 09/03/23 History Acetaminophen [Tylenol Arthritis] 650 mg PO HS 08/12/22 09/03/23 History Donepezil HCl [Aricept] 10 mg PO HS 08/12/22 09/03/23 History Multivitamins, Thera [Multivitamin 1 tab PO DAILY 01/22/23 09/03/23 History (formulary)] Ferrous Sulfate [Feosol] 325 mg PO DAILY 30 Days #30 tab 03/20/23 09/03/23 Rx Acetaminophen [Tylenol] 650 mg PO Q4H PRN 09/03/23 09/03/23 History Aspirin 81 mg PO DAILY 09/03/23 09/03/23 History Carbidopa-Levodopa 25-100 mg 1 tab PO BID@0800,1200 09/03/23 09/03/23 History [Sinemet 25-100] Ketotifen Fumarate [Alaway] 1 drop BOTH EYES HS 09/03/23 09/03/23 History Lactose-Reduced Food [Ensure Plus] 237 ml PO DAILY 09/03/23 09/03/23 History Memantine [Namenda] 5 mg PO BID 09/03/23 09/03/23 History Menthol [Biofreeze] 1 applic TOPICAL BID 09/03/23 09/03/23 History Ocusoft Lid Scrub Plus External 1 applic BOTH EYES HS 09/03/23 09/03/23 History Pad (Eyelid Cleansers) Omeprazole [PriLOSEC] 20 mg PO HS 09/03/23 09/03/23 History Sucralfate [Carafate] 1 gm PO AC-TID@08,12,17 09/03/23 09/03/23 History guaiFENesin [guaiFENesin Oral 200 mg PO Q4H PRN 09/03/23 09/03/23 History Solution] polyethylene glycoL 3350 [Miralax] 17 gm PO DAILY 09/03/23 09/03/23 History Allergies Allergy/AdvReac Type Severity Reaction Status Date / Time garlic Allergy "tears his Verified 09/03/23 09:38 gut up" Physical Exam Vitals: Vital Signs Temp Pulse Resp BP Pulse Ox 09/06/23 08:00 98.7 F 98 18 122/74 92 L 09/06/23 02:00 98.9 F 94 20 142/89 94 L 09/05/23 22:53 97 19 09/05/23 21:52 97.8 F 97 19 124/77 93 L Intake and Output 09/05/23 09/06/23 09/06/23 22:59 06:59 14:59 Intake Total 10 Output Total 100 100 187 Balance -90 -100 -187 Intake: Tube Feeding 10 Output: Urine 100 100 100 Post Void Residual 87 Other: Voiding Method Diaper Diaper Indwelling Catheter Indwelling Catheter # Voids 1 Results CBC & Chem 7: 09/06/23 13:05 09/06/23 13:05 Labs: Abnormal Lab Results - Last 24 Hours (Table) 09/06/23 09/06/23 Range/Units 13:05 13:05 RDW 16.2 H (11.5-15.5) % Neutrophils # 8.4 H (1.3-7.7) k/uL Sodium 146 H (137-145) mmol/L Chloride 117 H (98-107) mmol/L BUN 33 H (9-20) mg/dL Creatinine 0.61 L (0.66-1.25) mg/dL Glucose 138 H (74-99) mg/dL Calcium 8.0 L (8.4-10.2) mg/dL Assessment and Plan Plan: 1patient with mental status changes likely multifactorial possibly metabolic or neurologic 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 difficile is positive however clinically doubt C. difficile by itself responsible for his mental status changes 3-vancomycin 125 mg p.o. every 6 hours to continue 4-check inflammatory markers We will follow on clinical condition and cultures to further adjust medication if needed Thank you for this consultation we will follow the patient along with you Dictation was produced using [employer] dictation software. please excuse any grammatical, word or spelling errors. Time with Patient: Greater than 30
[2023-09-07] MEDS: VANCOMYCIN ORAL SOLUTION 250 MG/5 ML BOTTLE PO SCH ×5 (00:30→21:03)
[2023-09-07] MEDS: SODIUM CHLORIDE 0.45% 1,000 ML IV SCH ×2 (03:30→13:19)
[2023-09-07 09:12] LABS: BUN/Creat Ratio 40.29 Ratio (12.00-20.00); Blood Urea Nitrogen 28.2 mg/dL (9.0-27.0); Chloride 118 mmol/L (96-109); Glucose 140 mg/dL (70-110); Potassium 3.6 mmol/L (3.5-5.5); Sodium 148 mmol/L (135-145)
[2023-09-07 09:13] LABS: ALT 86 U/L (10-49); AST 147 U/L (14-35); Albumin 2.3 g/dL (3.8-4.9); Albumin/Globulin Ratio 1.21 Ratio (1.60-3.17); Alkaline Phosphatase 120 U/L (41-126); Carbon Dioxide 21.8 mmol/L (21.6-31.8); Globulin 1.9 g/dL (1.6-3.3); Total Bilirubin 0.6 mg/dL (0.3-1.2); Total Protein 4.2 g/dL (6.2-8.2)
[2023-09-07] MEDS: ASPIRIN 81 MG PO SCH (09:59)
[2023-09-07] MEDS: CARBIDOPA-LEVODOPA 25-100 MG 1 EACH TAB PO SCH ×2 (09:59→13:18)
[2023-09-07] MEDS: MULTIVITAMINS, THERA 1 EACH TAB PO SCH (09:59)
[2023-09-07] MEDS: SUCRALFATE 1 GM TAB PO SCH ×3 (09:59→18:25)
[2023-09-07] MEDS: polyethylene glycoL 3350 17 GM POWD.PACK PO SCH (09:59)
[2023-09-07] MEDS: ENOXAPARIN 40 MG/0.4 ML SYRINGE SQ SCH (09:59)
[2023-09-07] MEDS: FERROUS SULFATE 325 MG TAB PO SCH (09:59)
[2023-09-07] MEDS: MEMANTINE 5 MG TAB PO SCH ×2 (10:03→20:58)
[2023-09-07 10:48] LABS: Basophils # (A) 0.01 X 10*3/uL (0.00-0.10); Basophils % (A) 0.1 %; Eosinophils % (A) 0.9 %; HCT 43.2 % (39.6-50.0); HGB 14.5 g/dL (13.0-17.0); Lymphocytes # (A) 1.75 X 10*3/uL (0.90-5.00); Lymphocytes % (A) 16.3 %; MCH 31.3 pg (27.0-32.0); MCHC 33.6 g/dL (32.0-37.0); MCV 93.3 FL (80.0-97.0); Mean Platelet Volume 11.9 FL (9.5-12.2); Monocytes # (A) 0.53 X 10*3/uL (0.20-1.00); Monocytes % (A) 4.9 %; NRBC Per 100 WBC 0.02 X 10*3/uL (0.00-0.01); Neutrophils # (A) 8.14 X 10*3/uL (1.80-7.70); Neutrophils % (A) 75.9 %; Platelet Count 224 X 10*3/uL (140-440); RBC 4.63 X 10*6/uL (4.40-5.60); RDW 19.4 % (11.5-14.5); Toxic Granulation 2+; WBC 10.73 X 10*3/uL (4.50-10.00)
[2023-09-07 11:40] LABS: Erythrocyte Sedimentation Rate 3 mm/Hr (0-20)
--- NOTE | 2023-09-07 16:24 | P.PN ---
Subjective Progress Note Date: 09/07/23 Patient initially seen by Dr. Garland Haro. Please refer to his note for details. Patient is a 83-year-old male with Parkinson's who has recent acute sinusitis and since then has confusion. Patient could not get MRI because of head position so needs to be ordered once condition improves. EEG was negative for seizures. Dr. Haro ordered repeat CT head. Some of the work-up during this hospital visit consisted of: Patient is afebrile. Initial wbc is 12K and repeat is 10K Sodium is 140--151, creatinine is 0.73. BUN is 52, plasma lactate vein is 2.1. Calcium is 8.2, magnesium 2.6 AST ALT is within normal limits Vitamin B12: 2537 Serum folate 24.80 Ammonia 9 TSH: 0.514 u/a seems negative for UTI SARS-COV2, Influenza A/B and RSV PCR is not detected. CT head is reported as no acute intracranial hemorrhage or midline shift. There is mild to moderate diffuse-age related cerebral atrophy and chronic small vessel ischemic change redemostrated. No significant change from prior. I personally reviewed the CT of the head and there is no acute subacute ischemia. There is no mass effect. There is no acute or subacute bleed. Routine EEG: As abnormal. The background slowing is suggestive of moderate encephalopathy. Otherwise there is no focal slowing, epileptiform discharges or seizure on the EEG. Objective - Vital Signs Vital signs: Vital Signs Temp 98.2 F 09/07/23 08:00 Pulse 100 09/07/23 08:00 Resp 18 09/07/23 08:00 BP 94/59 09/07/23 08:00 Pulse Ox 93 L 09/07/23 08:00 FiO2 Intake & Output 09/06/23 09/07/23 09/07/23 18:59 06:59 18:59 Output Total 187 350 Balance -187 -350 Weight 70.307 kg Output: Urine 100 350 Post Void Residual 87 Other: Voiding Method Diaper Diaper Indwelling Catheter Indwelling Catheter # Bowel Movements 2 - Exam Patient is an elderly male, who is laying in the bed, obtunded. His mouth is open, he is slightly morning. He slightly snoring. Patient does not respond to calling his name. He moans a little. He appears slightly warm. Patient did not cooperate with examination. - Labs CBC & Chem 7: 09/07/23 05:47 09/07/23 05:47 Labs: Abnormal Lab Results - Last 24 Hours (Table) 09/04/23 09/06/23 09/07/23 Range/Units 05:57 15:10 05:47 WBC 10.73 H (4.50-10.00) X 10*3/uL RDW 19.4 H (11.5-14.5) % Immature Gran # 0.20 H (0.00-0.04) X 10*3/uL Neutrophils # 8.14 H (1.80-7.70) X 10*3/uL Neutrophils # (Manual) 8.32 H (1.80-7.70) X 10*3/uL NRBC/100 WBC Diff 0.02 H (0.00-0.01) X 10*3/uL Toxic Granulation 2+ A Sodium (135-145) mmol/L Chloride (96-109) mmol/L BUN (9.0-27.0) mg/dL BUN/Creatinine Ratio (12.00-20.00) Ratio Glucose (70-110) mg/dL Calcium (8.7-10.3) mg/dL AST (14-35) U/L ALT (10-49) U/L C-Reactive Protein (0.00-0.80) mg/dL Total Protein (6.2-8.2) g/dL Albumin (3.8-4.9) g/dL Albumin/Globulin Ratio (1.60-3.17) Ratio Procalcitonin (0.02-0.09) ng/mL C. difficile (EIA) Intrp Positive A (Negative) 09/07/23 09/07/23 Range/Units 05:47 05:47 WBC (4.50-10.00) X 10*3/uL RDW (11.5-14.5) % Immature Gran # (0.00-0.04) X 10*3/uL Neutrophils # (1.80-7.70) X 10*3/uL Neutrophils # (Manual) (1.80-7.70) X 10*3/uL NRBC/100 WBC Diff (0.00-0.01) X 10*3/uL Toxic Granulation Sodium 148 H (135-145) mmol/L Chloride 118 H (96-109) mmol/L BUN 28.2 H (9.0-27.0) mg/dL BUN/Creatinine Ratio 40.29 H (12.00-20.00) Ratio Glucose 140 H (70-110) mg/dL Calcium 8.0 L (8.7-10.3) mg/dL AST 147 H (14-35) U/L ALT 86 H (10-49) U/L C-Reactive Protein 5.00 H (0.00-0.80) mg/dL Total Protein 4.2 L (6.2-8.2) g/dL Albumin 2.3 L (3.8-4.9) g/dL Albumin/Globulin Ratio 1.21 L (1.60-3.17) Ratio Procalcitonin 0.18 H (0.02-0.09) ng/mL C. difficile (EIA) Intrp (Negative) Assessment and Plan Assessment: This is an 83-year-old gentleman with history of Parkinson's disease, dementia who presents because of generalized weakness and confusion. Per the nurse was reported to her that this has been going on for the last 1 -2 weeks and per family members had recent sinus infection and was given abx then became confused. Encephalopathy which is weakness. Is due to metabolic encephalopathy Worsening hyponatremia likely due to dehydration Elevated BUN trending down C. difficile colitis Hypermagnesemia mild. Parkinson's disease for about 6 months Demenia for past couple years but is able to feed self, communicate and walks with walker Dementia due to Parkinson's disease Hypernatremia Elevated BUN Elevated plasma like acid that resolved Plan: Per Dr. Haro report, MRI the brain could not be done since per psych tech team "Could not connect coil over pt head due to patient anatomy. Pt kyphotic". Once his is more awake and responsive will reorder the MRI and attempt again to rule out any stroke or other central cause. In the meantime, will order a repeat CT head to assess if any change compared to prior CT head. Patient is resumed on his home medication of Sinemet 25-100mg 1 tab bid via NG tube and his no improvement in his neurological condition. He has been responsive to bid dose at home. Will reassess if need to go up to tid dose. Patient is on home medication for Aricept and Namenda Patient continues to be severely obtunded. 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 Need to hold Lovenox for 24 hours. Patient did receive Lovenox today. Discussed with patient's nurse. ID on board. We'll defer the rest of the medical measure the primary team.
--- NOTE | 2023-09-07 17:27 | P.PN ---
Subjective Progress Note Date: 09/07/23 Davin Simons, is an 83-year-old male patient, resident of a [facility], who presented to [facility] emergency room, with a chief complaint of generalized weakness and acute mental status changes, patient was noticed to be somnolent, and nonverbal at the [facility], he was sent to emergency room for evaluation. He was evaluated in the emergency room vital examination on presentation revealed a temperature of 97.8 pulse 72 respiration 20 blood pressure 100/64 pulse ox 95% on room air Laboratory data revealed a white blood count of 12.0 hemoglobin 15.6 platelet count 234 sodium 140 potassium 3.9 chloride 110 CO2 20 BUN 52 creatinine 0.73 Testing in the emergency room revealed chest x-ray done in the emergency room revealed lower lung volumes no acute cardiopulmonary disease process and COPD changes, EKG done in the emergency room revealed sinus rhythm with occasional ventricular premature complexes and moderate intraventricular conduction delay, computed tomography scan of the brain revealed no acute intracranial hemorrhage or midline shift. Patient was admitted to medical floor for further evaluation and treatment On 09/04/2023 patient currently resting in bed remains confused with limited responsiveness. Repeat lactic acid 1.8. Sodium increasing to 148. Fluids adjusted to D5 half-normal at 75. Bun 42.2 creatinine 0.8. Per nursing staff patient failed swallow eval will consult speech therapy services to further evaluate. Patient's son at bedside. Requesting a neurology consult for concerns of dementia. Vital signs temp 97.9, heart rate 89, respiratory rate 18, blood pressure 150/75 with pulse ox of 95% on room air On 09/05/2023 patient was seen and examined on the medical floor he is somnolent responsive to stimuli, in no apparent distress, patient is nothing by mouth, IV fluid was increased to 100 mL per hour, family is at the bedside in case was discussed in details with them, at this time they are agreeable for NG tube placement for medication and nutrition, will follow up closely on progress. On 09/06/2023 patient remains somnolent. Patient's son at bedside. NG tube was placed patient started on tube feedings. Discussed with nursing staff to assess for urinary retention and place Barr catheter if needed to assess urinary output. Patient remains on half normal saline. Neurology services following. On 09/07/2023 patient was seen and examined on the medical floor he is somnolent, less responsive today, stools was positive for C. diff, patient is currently receiving vancomycin through NG tube, he is also receiving his Parkinson disease medication and nutrition through NG tube, patient has IV fluid, he has a stool management system, prognosis is guarded, no family members available today. Objective - Vital Signs Vital signs: Vital Signs Temp 98.2 F 09/07/23 08:00 Pulse 100 09/07/23 08:00 Resp 18 09/07/23 08:00 BP 94/59 09/07/23 08:00 Pulse Ox 93 L 09/07/23 08:00 FiO2 Intake & Output 09/06/23 09/07/23 09/07/23 18:59 06:59 18:59 Output Total 187 350 Balance -187 -350 Output: Urine 100 350 Post Void Residual 87 Other: Voiding Method Diaper Diaper Indwelling Catheter Indwelling Catheter # Bowel Movements 2 - Exam In general patient is somnolent and nonverbal in no apparent distress HEENT head normocephalic and atraumatic Neck is supple no JVD no goiter no lymphadenopathy no carotid bruit Chest examination is clear to auscultation no crackles no wheezing Cardiac exam reveals regular heart sounds S1 and S2 no gallops no murmurs Abdomen is soft nontender no organomegaly with normal bowel sounds Extremity exam reveals no edema no cyanosis or clubbing Neurological examination reveals no gross focal deficits - Labs CBC & Chem 7: 09/07/23 05:47 09/07/23 05:47 Labs: Abnormal Lab Results - Last 24 Hours (Table) 09/04/23 09/06/23 09/06/23 Range/Units 05:57 13:05 13:05 RDW 16.2 H (11.5-15.5) % Neutrophils # 8.4 H (1.3-7.7) k/uL Neutrophils # (Manual) 8.32 H (1.80-7.70) X 10*3/uL Sodium 146 H (137-145) mmol/L Chloride 117 H (98-107) mmol/L BUN 33 H (9-20) mg/dL Creatinine 0.61 L (0.66-1.25) mg/dL BUN/Creatinine Ratio (12.00-20.00) Ratio Glucose 138 H (74-99) mg/dL Calcium 8.0 L (8.4-10.2) mg/dL AST (14-35) U/L ALT (10-49) U/L C-Reactive Protein (0.00-0.80) mg/dL Total Protein (6.2-8.2) g/dL Albumin (3.8-4.9) g/dL Albumin/Globulin Ratio (1.60-3.17) Ratio Procalcitonin (0.02-0.09) ng/mL C. difficile (EIA) Intrp (Negative) 09/06/23 09/07/23 09/07/23 Range/Units 15:10 05:47 05:47 RDW (11.5-15.5) % Neutrophils # (1.3-7.7) k/uL Neutrophils # (Manual) (1.80-7.70) X 10*3/uL Sodium 148 H (137-145) mmol/L Chloride 118 H (98-107) mmol/L BUN 28.2 H (9-20) mg/dL Creatinine (0.66-1.25) mg/dL BUN/Creatinine Ratio 40.29 H (12.00-20.00) Ratio Glucose 140 H (74-99) mg/dL Calcium 8.0 L (8.4-10.2) mg/dL AST 147 H (14-35) U/L ALT 86 H (10-49) U/L C-Reactive Protein 5.00 H (0.00-0.80) mg/dL Total Protein 4.2 L (6.2-8.2) g/dL Albumin 2.3 L (3.8-4.9) g/dL Albumin/Globulin Ratio 1.21 L (1.60-3.17) Ratio Procalcitonin 0.18 H (0.02-0.09) ng/mL C. difficile (EIA) Intrp Positive A (Negative) Assessment and Plan Plan: Acute mental status changes Dehydration with acute kidney injury Underlying history of Parkinson disease Underlying history of peptic ulcer disease Underlying history of hypertension Underlying history of dementia Underlying history of anemia At this time patient is admitted to medical floor He was started on gentle IV hydration Speech service is consulted to assess swallow Neurology services consulted Home medications reviewed and reordered For DVT prophylaxis subcu Lovenox Will recheck labs in a.m.
[2023-09-07] MEDS: PANTOPRAZOLE 40 MG TABLET PO SCH (20:57)
[2023-09-07] MEDS: KETOTIFEN 0.025% OPHTH DROPS 5 ML BTL BOTH EYES SCH (20:57)
[2023-09-07] MEDS: ACETAMINOPHEN TAB 325 MG TAB PO SCH (20:57)
[2023-09-07] MEDS: DONEPEZIL 10 MG TAB PO SCH (20:57)
[2023-09-07] MEDS: LACTOBACILLUS ACIDOPHILUS/PECT 1 EACH CAPSULE PO SCH (20:58)
[2023-09-07] MEDS: [UNRECOGNIZED DRUG - OTHER] BOTH EYES SCH (20:58)
[2023-09-08] MEDS: SODIUM CHLORIDE 0.45% 1,000 ML IV SCH ×5 (00:26→23:19)
[2023-09-08] MEDS: polyethylene glycoL 3350 17 GM POWD.PACK PO SCH (08:27)
[2023-09-08 09:44] LABS: BUN/Creat Ratio 39.14 Ratio (12.00-20.00); Blood Urea Nitrogen 27.4 mg/dL (9.0-27.0); Carbon Dioxide 21.5 mmol/L (21.6-31.8); Chloride 116 mmol/L (96-109); Glucose 146 mg/dL (70-110); Potassium 3.8 mmol/L (3.5-5.5); Sodium 146 mmol/L (135-145)
[2023-09-08 09:45] LABS: ALT 111 U/L (10-49); AST 179 U/L (14-35); Albumin 2.2 g/dL (3.8-4.9); Albumin/Globulin Ratio 1.16 Ratio (1.60-3.17); Alkaline Phosphatase 127 U/L (41-126); Calcium 7.8 mg/dL (8.7-10.3); Globulin 1.9 g/dL (1.6-3.3); Total Bilirubin 0.5 mg/dL (0.3-1.2); Total Protein 4.1 g/dL (6.2-8.2)
[2023-09-08 10:02] LABS: Basophils # (A) 0.01 X 10*3/uL (0.00-0.10); Basophils % (A) 0.1 %; Eosinophils # (A) 0.02 X 10*3/uL (0.04-0.35); Eosinophils % (A) 0.2 %; HCT 41.8 % (39.6-50.0); HGB 14.1 g/dL (13.0-17.0); Lymphocytes # (A) 1.79 X 10*3/uL (0.90-5.00); Lymphocytes % (A) 15.2 %; MCH 31.1 pg (27.0-32.0); MCHC 33.7 g/dL (32.0-37.0); MCV 92.1 FL (80.0-97.0); Mean Platelet Volume 11.7 FL (9.5-12.2); Monocytes # (A) 0.48 X 10*3/uL (0.20-1.00); Monocytes % (A) 4.1 %; NRBC Per 100 WBC 0.02 X 10*3/uL (0.00-0.01); Neutrophils # (A) 9.29 X 10*3/uL (1.80-7.70); Platelet Count 206 X 10*3/uL (140-440); RBC 4.54 X 10*6/uL (4.40-5.60); RDW 19.4 % (11.5-14.5); Toxic Granulation 2+; WBC 11.75 X 10*3/uL (4.50-10.00)
[2023-09-08] MEDS: ASPIRIN 81 MG PO SCH (10:04)
[2023-09-08] MEDS: FERROUS SULFATE 325 MG TAB PO SCH (10:04)
[2023-09-08] MEDS: MULTIVITAMINS, THERA 1 EACH TAB PO SCH (10:04)
[2023-09-08] MEDS: SUCRALFATE 1 GM TAB PO SCH ×3 (10:04→17:12)
[2023-09-08] MEDS: CARBIDOPA-LEVODOPA 25-100 MG 1 EACH TAB PO SCH ×2 (10:04→12:23)
[2023-09-08] MEDS: LACTOBACILLUS ACIDOPHILUS/PECT 1 EACH CAPSULE PO SCH ×2 (10:04→20:53)
[2023-09-08] MEDS: MEMANTINE 5 MG TAB PO SCH (10:05)
[2023-09-08] MEDS: VANCOMYCIN ORAL SOLUTION 250 MG/5 ML BOTTLE PO SCH ×4 (10:05→20:53)
[2023-09-08] MEDS ORDERED: SODIUM CHLORIDE 0.9% 500 ML 250 ML IV ONE (12:41)
--- NOTE | 2023-09-08 12:49 | P.PN ---
Subjective Progress Note Date: 09/08/23 Davin Simons, is an 83-year-old male patient, [facility], who presented to [facility] emergency room, with a chief complaint of generalized weakness and acute mental status changes, patient was noticed to be [facility], he was sent to emergency room for evaluation. He was evaluated in the emergency room vital examination on presentation revealed a temperature of 97.8 pulse 72 respiration 20 blood pressure 100/64 pulse ox 95% on room air Laboratory data revealed a white blood count of 12.0 hemoglobin 15.6 platelet count 234 sodium 140 potassium 3.9 chloride 110 CO2 20 BUN 52 creatinine 0.73 Testing in the emergency room revealed chest x-ray done in the emergency room revealed lower lung volumes no acute cardiopulmonary disease process and COPD changes, EKG done in the emergency room revealed sinus rhythm with occasional ventricular premature complexes and moderate intraventricular conduction delay, computed tomography scan of the brain revealed no acute intracranial hemorrhage or midline shift. Patient was admitted to medical floor for further evaluation and treatment On 09/04/2023 patient currently resting in bed remains confused with limited responsiveness. Repeat lactic acid 1.8. Sodium increasing to 148. Fluids adjusted to D5 half-normal at 75. Bun 42.2 creatinine 0.8. Per nursing staff patient failed swallow eval will consult speech therapy services to further evaluate. Patient's son at bedside. Requesting a neurology consult for concerns of dementia. Vital signs temp 97.9, heart rate 89, respiratory rate 18, blood pressure 150/75 with pulse ox of 95% on room air On 09/05/2023 patient was seen and examined on the medical floor he is somnolent responsive to stimuli, in no apparent distress, patient is nothing by mouth, IV fluid was increased to 100 mL per hour, family is at the bedside in case was discussed in details with them, at this time they are agreeable for NG tube placement for medication and nutrition, will follow up closely on progress. On 09/06/2023 patient remains somnolent. Patient's son at bedside. NG tube was placed patient started on tube feedings. Discussed with nursing staff to assess for urinary retention and place Barr catheter if needed to assess urinary output. Patient remains on half normal saline. Neurology services following. On 09/07/2023 patient was seen and examined on the medical floor he is somnolent, less responsive today, stools was positive for C. diff, patient is currently receiving vancomycin through NG tube, he is also receiving his Parkinson disease medication and nutrition through NG tube, patient has IV fluid, he has a stool management system, prognosis is guarded, no family members available today. On 09/08/2023 patient was seen and examined on the medical floor, he is somnolent and responsive, in no apparent distress, he has NG tube in, and receiving medication and nutrition, he also has IV fluid, he is still having severe diarrhea, he is maintained on oral vancomycin through his NG tube, Questran was added, today patient has evidence of elevated liver enzymes, Tylenol Aricept and Namenda were held, patient blood pressure is on the low side, he will receive a dose of IV fluid, normal saline, will continue to monitor very closely. Son is at the bedside, different issues regarding his father's health were discussed in details. Objective - Vital Signs Vital signs: Vital Signs Temp 98.4 F 09/08/23 07:45 Pulse 157 H 09/08/23 08:25 Resp 24 09/08/23 08:25 BP 95/60 09/08/23 08:25 Pulse Ox 93 L 09/08/23 08:25 FiO2 Intake & Output 09/07/23 09/08/23 09/08/23 18:59 06:59 18:59 Output Total 350 Balance -350 Weight 70.307 kg Output: Urine 350 Other: Voiding Method Diaper Diaper Indwelling Catheter External Catheter - Exam In general patient is somnolent and nonverbal in no apparent distress HEENT head normocephalic and atraumatic Neck is supple no JVD no goiter no lymphadenopathy no carotid bruit Chest examination is clear to auscultation no crackles no wheezing Cardiac exam reveals regular heart sounds S1 and S2 no gallops no murmurs Abdomen is soft nontender no organomegaly with normal bowel sounds Extremity exam reveals no edema no cyanosis or clubbing Neurological examination reveals no gross focal deficits - Labs CBC & Chem 7: 09/08/23 06:05 09/08/23 06:05 Labs: Abnormal Lab Results - Last 24 Hours (Table) 09/07/23 09/08/23 09/08/23 Range/Units 05:47 06:05 06:05 WBC 10.73 H 11.75 H (4.50-10.00) X 10*3/uL RDW 19.4 H 19.4 H (11.5-14.5) % Immature Gran # 0.20 H 0.16 H (0.00-0.04) X 10*3/uL Neutrophils # 8.14 H 9.29 H (1.80-7.70) X 10*3/uL Eosinophils # 0.02 L (0.04-0.35) X 10*3/uL NRBC/100 WBC Diff 0.02 H 0.02 H (0.00-0.01) X 10*3/uL Toxic Granulation 2+ A 2+ A Sodium 146 H (135-145) mmol/L Chloride 116 H (96-109) mmol/L Carbon Dioxide 21.5 L (21.6-31.8) mmol/L BUN 27.4 H (9.0-27.0) mg/dL BUN/Creatinine Ratio 39.14 H (12.00-20.00) Ratio Glucose 146 H (70-110) mg/dL Calcium 7.8 L (8.7-10.3) mg/dL AST 179 H (14-35) U/L ALT 111 H (10-49) U/L Alkaline Phosphatase 127 H (41-126) U/L Total Protein 4.1 L (6.2-8.2) g/dL Albumin 2.2 L (3.8-4.9) g/dL Albumin/Globulin Ratio 1.16 L (1.60-3.17) Ratio Microbiology - Last 24 Hours (Table) 09/06/23 12:58 Blood Culture - Preliminary Blood 09/06/23 12:31 Urine Culture - Preliminary Urine,Voided Gram Neg Bacilli Gram Neg Bacilli#2 Assessment and Plan Plan: Acute mental status changes Dehydration with acute kidney injury Underlying history of Parkinson disease Underlying history of peptic ulcer disease Underlying history of hypertension Underlying history of dementia Underlying history of anemia At this time patient is admitted to medical floor He was started on gentle IV hydration Speech service is consulted to assess swallow Neurology services consulted Home medications reviewed and reordered For DVT prophylaxis subcu Lovenox Will recheck labs in a.m.
--- NOTE | 2023-09-08 14:49 | P.PN ---
Subjective Progress Note Date: 09/07/23 Principal diagnosis: Reason for follow-up is C. difficile colitis Patient is a 83-year-old male with a past medical history significant for dementia anxiety depression and [facility] resident patient was sent to the from the [facility] concerning for generalized weakness and decreased talking, patient apparently has received antibiotic for sinus infection before the patient was brought to the hospital did have diarrhea and the stool for C. difficile came back positive. On today's evaluation that is 09/07/2023 patient remains to be afebrile, the patient is breathing comfortably on room air the patient remains to be lethargic and cannot provide any history he did have NG for feeding and fecal management system because of extensive diarrhea. Patient white count of 10.73, creatinine 0.7 Pro-Roni 0.18. Objective - Vital Signs Vital signs: Vital Signs Temp 98.2 F 09/07/23 08:00 Pulse 100 09/07/23 08:00 Resp 18 09/07/23 08:00 BP 94/59 09/07/23 08:00 Pulse Ox 93 L 09/07/23 08:00 FiO2 Intake & Output 09/06/23 09/07/23 09/07/23 18:59 06:59 18:59 Output Total 187 350 Balance -187 -350 Weight 70.307 kg Output: Urine 100 350 Post Void Residual 87 Other: Voiding Method Diaper Diaper Indwelling Catheter Indwelling Catheter # Bowel Movements 2 - Exam GENERAL DESCRIPTION: An elderly male lying in bed in no distress RESPIRATORY SYSTEM: Unlabored breathing , decreased breath sounds at bases HEART: S1 S2 regular rate and rhythm , ABDOMEN: Soft , no tenderness EXTREMITIES: No edema feet - Labs CBC & Chem 7: 09/08/23 06:05 09/08/23 06:05 Labs: Abnormal Lab Results - Last 24 Hours (Table) 09/04/23 09/06/23 09/06/23 Range/Units 05:57 13:05 13:05 WBC (4.50-10.00) X 10*3/uL RDW 16.2 H (11.5-15.5) % Immature Gran # (0.00-0.04) X 10*3/uL Neutrophils # 8.4 H (1.3-7.7) k/uL Neutrophils # (Manual) 8.32 H (1.80-7.70) X 10*3/uL NRBC/100 WBC Diff (0.00-0.01) X 10*3/uL Toxic Granulation Sodium 146 H (137-145) mmol/L Chloride 117 H (98-107) mmol/L BUN 33 H (9-20) mg/dL Creatinine 0.61 L (0.66-1.25) mg/dL BUN/Creatinine Ratio (12.00-20.00) Ratio Glucose 138 H (74-99) mg/dL Calcium 8.0 L (8.4-10.2) mg/dL AST (14-35) U/L ALT (10-49) U/L C-Reactive Protein (0.00-0.80) mg/dL Total Protein (6.2-8.2) g/dL Albumin (3.8-4.9) g/dL Albumin/Globulin Ratio (1.60-3.17) Ratio Procalcitonin (0.02-0.09) ng/mL C. difficile (EIA) Intrp (Negative) 09/06/23 09/07/23 09/07/23 Range/Units 15:10 05:47 05:47 WBC 10.73 H (4.50-10.00) X 10*3/uL RDW 19.4 H (11.5-15.5) % Immature Gran # 0.20 H (0.00-0.04) X 10*3/uL Neutrophils # 8.14 H (1.3-7.7) k/uL Neutrophils # (Manual) (1.80-7.70) X 10*3/uL NRBC/100 WBC Diff 0.02 H (0.00-0.01) X 10*3/uL Toxic Granulation 2+ A Sodium 148 H (137-145) mmol/L Chloride 118 H (98-107) mmol/L BUN 28.2 H (9-20) mg/dL Creatinine (0.66-1.25) mg/dL BUN/Creatinine Ratio 40.29 H (12.00-20.00) Ratio Glucose 140 H (74-99) mg/dL Calcium 8.0 L (8.4-10.2) mg/dL AST 147 H (14-35) U/L ALT 86 H (10-49) U/L C-Reactive Protein 5.00 H (0.00-0.80) mg/dL Total Protein 4.2 L (6.2-8.2) g/dL Albumin 2.3 L (3.8-4.9) g/dL Albumin/Globulin Ratio 1.21 L (1.60-3.17) Ratio Procalcitonin (0.02-0.09) ng/mL C. difficile (EIA) Intrp Positive A (Negative) 09/07/23 Range/Units 05:47 WBC (4.50-10.00) X 10*3/uL RDW (11.5-15.5) % Immature Gran # (0.00-0.04) X 10*3/uL Neutrophils # (1.3-7.7) k/uL Neutrophils # (Manual) (1.80-7.70) X 10*3/uL NRBC/100 WBC Diff (0.00-0.01) X 10*3/uL Toxic Granulation Sodium (137-145) mmol/L Chloride (98-107) mmol/L BUN (9-20) mg/dL Creatinine (0.66-1.25) mg/dL BUN/Creatinine Ratio (12.00-20.00) Ratio Glucose (74-99) mg/dL Calcium (8.4-10.2) mg/dL AST (14-35) U/L ALT (10-49) U/L C-Reactive Protein (0.00-0.80) mg/dL Total Protein (6.2-8.2) g/dL Albumin (3.8-4.9) g/dL Albumin/Globulin Ratio (1.60-3.17) Ratio Procalcitonin 0.18 H (0.02-0.09) ng/mL C. difficile (EIA) Intrp (Negative) Assessment and Plan (1) C. difficile colitis Current Visit: Yes Status: Acute Code(s): A04.72 - ENTEROCOLITIS D/T CLOSTRIDIUM DIFFICILE, NOT SPCF RECUR SNOMED Code(s): 745293315 Plan: 1patient with mental status changes likely multifactorial possibly metabolic or neurologic clinical suspicious low for possible RIP SAW OPERATOR infection in this patient with no fever or elevated white count 2-patient did recently get exposed to antibiotic for sinus infection and now has developed diarrhea and stool for C. difficile is positive however clinically doubt C. difficile by itself responsible for his mental status changes 3-patient to continue with vancomycin 125 mg p.o. every 6 hours, will benefit from LP to rule out RIP SAW OPERATOR infection though clinical suspicious remains to be low Dictation was produced using [employer] software. please excuse any grammatical, word or spelling errors. Time with Patient: Less than 30
--- NOTE | 2023-09-08 14:51 | P.PN ---
Subjective Progress Note Date: 09/08/23 Principal diagnosis: Reason for follow-up is C. difficile colitis Patient is a 83-year-old male with a past medical history significant for dementia anxiety depression and skilled nursing resident patient was sent to the from the skilled nursing concerning for generalized weakness and decreased talking, patient apparently has received antibiotic for sinus infection before the patient was brought to the hospital did have diarrhea and the stool for C. difficile came back positive. On today's evaluation that is 09/08/2023 patient continues to be afebrile, the patient is breathing comfortably on room air the patient remains to be lethargic and unable to provide any history, the patient did have NG for feeding and fecal management system because of extensive diarrhea however no worsening output has been reported. Patient white count of 11.75, creatinine is 0.7, Pro-Roni 0.18. Objective - Vital Signs Vital signs: Vital Signs Temp 98.5 F 09/08/23 11:14 Pulse 102 H 09/08/23 13:27 Resp 32 H 09/08/23 11:14 BP 110/67 09/08/23 13:27 Pulse Ox 90 L 09/08/23 11:14 FiO2 Intake & Output 09/07/23 09/08/23 09/08/23 18:59 06:59 18:59 Output Total 350 700 Balance -350 -700 Weight 70.307 kg Output: Urine 350 Urine/Stool Mix 700 Other: Voiding Method Diaper Diaper Diaper Indwelling Catheter External Catheter External Catheter - Exam GENERAL DESCRIPTION: An elderly male lying in bed in no distress RESPIRATORY SYSTEM: Unlabored breathing , decreased breath sounds at bases HEART: S1 S2 regular rate and rhythm , ABDOMEN: Soft , no tenderness EXTREMITIES: No edema feet - Labs CBC & Chem 7: 09/08/23 06:05 09/08/23 06:05 Labs: Abnormal Lab Results - Last 24 Hours (Table) 09/08/23 09/08/23 Range/Units 06:05 06:05 WBC 11.75 H (4.50-10.00) X 10*3/uL RDW 19.4 H (11.5-14.5) % Immature Gran # 0.16 H (0.00-0.04) X 10*3/uL Neutrophils # 9.29 H (1.80-7.70) X 10*3/uL Eosinophils # 0.02 L (0.04-0.35) X 10*3/uL NRBC/100 WBC Diff 0.02 H (0.00-0.01) X 10*3/uL Toxic Granulation 2+ A Sodium 146 H (135-145) mmol/L Chloride 116 H (96-109) mmol/L Carbon Dioxide 21.5 L (21.6-31.8) mmol/L BUN 27.4 H (9.0-27.0) mg/dL BUN/Creatinine Ratio 39.14 H (12.00-20.00) Ratio Glucose 146 H (70-110) mg/dL Calcium 7.8 L (8.7-10.3) mg/dL AST 179 H (14-35) U/L ALT 111 H (10-49) U/L Alkaline Phosphatase 127 H (41-126) U/L Total Protein 4.1 L (6.2-8.2) g/dL Albumin 2.2 L (3.8-4.9) g/dL Albumin/Globulin Ratio 1.16 L (1.60-3.17) Ratio Microbiology - Last 24 Hours (Table) 09/06/23 12:58 Blood Culture - Preliminary Blood 09/06/23 12:31 Urine Culture - Preliminary Urine,Voided Gram Neg Bacilli Gram Neg Bacilli#2 Assessment and Plan (1) C. difficile colitis Current Visit: Yes Status: Acute Code(s): A04.72 - ENTEROCOLITIS D/T CLOSTRIDIUM DIFFICILE, NOT SPCF RECUR SNOMED Code(s): 121732482 Plan: 1patient with mental status changes likely multifactorial possibly metabolic or neurologic clinical suspicious low for possible BOILER ROOM OPERATOR infection in this patient with no fever or elevated white count 2-patient did recently get exposed to antibiotic for sinus infection and now has developed diarrhea and stool for C. difficile is positive however clinically doubt C. difficile by itself responsible for his mental status changes 3-patient to continue with vancomycin 125 mg p.o. every 6 hours, 4-patient did have a negative UA however urine culture is growing 2 different gram-negative possible contamination keeping in mind active C. difficile we will hold on adding further antibiotic therapy at this point 5-possible LP to be completed by neurology this afternoon results will be followed Dictation was produced using [employer] software. please excuse any grammatical, word or spelling errors. Time with Patient: Less than 30
[2023-09-08] MEDS: CHOLESTYRAMINE (WITH SUGAR) 4 GM PACKET PO SCH (17:13)
--- NOTE | 2023-09-08 18:27 | P.PN ---
Subjective Progress Note Date: 09/08/23 08/08/2023: Patient was seen for a follow-up. Patient essentially unchanged. 08/07/2023: Patient initially seen by Dr. Garland Haro. Please refer to his note for details. Patient is a 83-year-old male with Parkinson's who has recent acute sinusitis and since then has confusion. Patient could not get MRI because of head position so needs to be ordered once condition improves. EEG was negative for seizures. Dr. Haro ordered repeat CT head. Some of the work-up during this hospital visit consisted of: Patient is afebrile. Initial wbc is 12K and repeat is 10K Sodium is 140--151, creatinine is 0.73. BUN is 52, plasma lactate vein is 2.1. Calcium is 8.2, magnesium 2.6 AST ALT is within normal limits Vitamin B12: 2537 Serum folate 24.80 Ammonia 9 TSH: 0.514 u/a seems negative for UTI SARS-COV2, Influenza A/B and RSV PCR is not detected. CT head is reported as no acute intracranial hemorrhage or midline shift. There is mild to moderate diffuse-age related cerebral atrophy and chronic small vessel ischemic change redemostrated. No significant change from prior. I personally reviewed the CT of the head and there is no acute subacute ischemia. There is no mass effect. There is no acute or subacute bleed. Routine EEG: As abnormal. The background slowing is suggestive of moderate encephalopathy. Otherwise there is no focal slowing, epileptiform discharges or seizure on the EEG. Objective - Vital Signs Vital signs: Vital Signs Temp 99.9 F H 09/08/23 14:00 Pulse 102 H 09/08/23 16:57 Resp 28 H 09/08/23 16:57 BP 90/55 09/08/23 16:57 Pulse Ox 91 L 09/08/23 16:57 FiO2 Intake & Output 09/07/23 09/08/23 09/08/23 18:59 06:59 18:59 Output Total 350 700 Balance -350 -700 Weight 70.307 kg Output: Urine 350 Urine/Stool Mix 700 Other: Voiding Method Diaper Diaper Diaper Indwelling Catheter External Catheter External Catheter - Exam Patient is an elderly male, who is laying in the bed, obtunded. His mouth is open, he is slightly morning. He slightly snoring. Patient does not respond to calling his name. He moans a little. He appears slightly warm. Patient did not cooperate with examination. - Labs CBC & Chem 7: 09/08/23 06:05 09/08/23 06:05 Labs: Abnormal Lab Results - Last 24 Hours (Table) 09/08/23 09/08/23 Range/Units 06:05 06:05 WBC 11.75 H (4.50-10.00) X 10*3/uL RDW 19.4 H (11.5-14.5) % Immature Gran # 0.16 H (0.00-0.04) X 10*3/uL Neutrophils # 9.29 H (1.80-7.70) X 10*3/uL Eosinophils # 0.02 L (0.04-0.35) X 10*3/uL NRBC/100 WBC Diff 0.02 H (0.00-0.01) X 10*3/uL Toxic Granulation 2+ A Sodium 146 H (135-145) mmol/L Chloride 116 H (96-109) mmol/L Carbon Dioxide 21.5 L (21.6-31.8) mmol/L BUN 27.4 H (9.0-27.0) mg/dL BUN/Creatinine Ratio 39.14 H (12.00-20.00) Ratio Glucose 146 H (70-110) mg/dL Calcium 7.8 L (8.7-10.3) mg/dL AST 179 H (14-35) U/L ALT 111 H (10-49) U/L Alkaline Phosphatase 127 H (41-126) U/L Total Protein 4.1 L (6.2-8.2) g/dL Albumin 2.2 L (3.8-4.9) g/dL Albumin/Globulin Ratio 1.16 L (1.60-3.17) Ratio Microbiology - Last 24 Hours (Table) 09/06/23 12:58 Blood Culture - Preliminary Blood 09/06/23 12:31 Urine Culture - Preliminary Urine,Voided Gram Neg Bacilli Gram Neg Bacilli#2 Assessment and Plan Assessment: This is an 83-year-old gentleman with history of Parkinson's disease, dementia who presents because of generalized weakness and confusion. Per the nurse was reported to her that this has been going on for the last 1 -2 weeks and per family members had recent sinus infection and was given abx then became confused. Encephalopathy which is weakness. Is due to metabolic encephalopathy Worsening hyponatremia likely due to dehydration Elevated BUN trending down C. difficile colitis Hypermagnesemia mild. Parkinson's disease for about 6 months Demenia for past couple years but is able to feed self, communicate and walks with walker Dementia due to Parkinson's disease Hypernatremia Elevated BUN Elevated plasma like acid that resolved Plan: Per Dr. Haro report, MRI the brain could not be done since per design technology professor team "Could not connect coil over pt head due to patient anatomy. Pt kyphotic". Once his is more awake and responsive will reorder the MRI and attempt again to rule out any stroke or other central cause. In the meantime, will order a repeat CT head to assess if any change compared to prior CT head. Patient is resumed on his home medication of Sinemet 25-100mg 1 tab bid via NG tube and his no improvement in his neurological condition. He has been responsive to bid dose at home. Will reassess if need to go up to tid dose. Patient is on home medication for Aricept and Namenda Patient continues to be severely obtunded. This could be related to encephalopathy, although if any concern for INSTRUMENT PERSON infection, we will consider lumbar puncture. Lovenox has been held. Plan to do lumbar puncture. LP kit not available at this time. Discussed with patient's nurse. ID on board. We'll defer the rest of the medical measure the primary team.
[2023-09-08] MEDS: [UNRECOGNIZED DRUG - OTHER] BOTH EYES SCH (20:21)
[2023-09-08] MEDS: ACYCLOVIR SODIUM 700 MG in SODIUM CHLORIDE 0.9% 100 ML IVPB SCH (20:53)
[2023-09-08] MEDS: PANTOPRAZOLE 40 MG TABLET PO SCH (20:53)
[2023-09-08] MEDS: KETOTIFEN 0.025% OPHTH DROPS 5 ML BTL BOTH EYES SCH (22:43)
[2023-09-09] MEDS: ACYCLOVIR SODIUM 700 MG in SODIUM CHLORIDE 0.9% 100 ML IVPB SCH (05:20)
[2023-09-09] MEDS: SODIUM CHLORIDE 0.45% 1,000 ML IV SCH ×4 (05:21→18:10)
[2023-09-09 08:41] LABS: HCT 40.7 % (39.6-50.0); HGB 13.7 g/dL (13.0-17.0); MCH 31.3 pg (27.0-32.0); MCHC 33.7 g/dL (32.0-37.0); MCV 92.9 FL (80.0-97.0); Mean Platelet Volume 11.6 FL (9.5-12.2); NRBC Per 100 WBC 0 X 10*3/uL (0.00-0.01); Platelet Count 203 X 10*3/uL (140-440); RBC 4.38 X 10*6/uL (4.40-5.60); RDW 19.5 % (11.5-14.5); WBC 14.51 X 10*3/uL (4.50-10.00)
[2023-09-09 09:00] LABS: Glucose 139 mg/dL (70-110)
[2023-09-09 09:01] LABS: ALT 153 U/L (10-49); AST 258 U/L (14-35); Albumin 2.1 g/dL (3.8-4.9); Alkaline Phosphatase 137 U/L (41-126); BUN/Creat Ratio 46.83 Ratio (12.00-20.00); Blood Urea Nitrogen 28.1 mg/dL (9.0-27.0); Calcium 7.7 mg/dL (8.7-10.3); Carbon Dioxide 20.9 mmol/L (21.6-31.8); Chloride 117 mmol/L (96-109); Globulin 2.1 g/dL (1.6-3.3); Potassium 3.9 mmol/L (3.5-5.5); Sodium 146 mmol/L (135-145); Total Bilirubin 0.6 mg/dL (0.3-1.2); Total Protein 4.2 g/dL (6.2-8.2)
[2023-09-09 09:12] LABS: Basophils # (A) 0.11 X 10*3/uL (0.00-0.10); Basophils % (A) 0.8 %; Eosinophils # (A) 0.02 X 10*3/uL (0.04-0.35); Eosinophils % (A) 0.1 %; Lymphocytes # (A) 1.59 X 10*3/uL (0.90-5.00); Monocytes # (A) 0.51 X 10*3/uL (0.20-1.00); Monocytes % (A) 3.5 %; Neutrophils # (A) 12.09 X 10*3/uL (1.80-7.70); Neutrophils % (A) 83.3 %; RBC Morphology Normal (Normal)
[2023-09-09] MEDS: polyethylene glycoL 3350 17 GM POWD.PACK PO SCH (10:55)
--- NOTE | 2023-09-09 10:55 | P.PN ---
Subjective Progress Note Date: 09/09/23 Davin Simons, is an 83-year-old male patient, resident of a snf, who presented to [facility] emergency room, with a chief complaint of generalized weakness and acute mental status changes, patient was noticed to be somnolent, and nonverbal at the snf, he was sent to emergency room for evaluation. He was evaluated in the emergency room vital examination on presentation revealed a temperature of 97.8 pulse 72 respiration 20 blood pressure 100/64 pulse ox 95% on room air Laboratory data revealed a white blood count of 12.0 hemoglobin 15.6 platelet count 234 sodium 140 potassium 3.9 chloride 110 CO2 20 BUN 52 creatinine 0.73 Testing in the emergency room revealed chest x-ray done in the emergency room revealed lower lung volumes no acute cardiopulmonary disease process and COPD changes, EKG done in the emergency room revealed sinus rhythm with occasional ventricular premature complexes and moderate intraventricular conduction delay, computed tomography scan of the brain revealed no acute intracranial hemorrhage or midline shift. Patient was admitted to medical floor for further evaluation and treatment On 09/04/2023 patient currently resting in bed remains confused with limited responsiveness. Repeat lactic acid 1.8. Sodium increasing to 148. Fluids adjusted to D5 half-normal at 75. Bun 42.2 creatinine 0.8. Per nursing staff patient failed swallow eval will consult speech therapy services to further evaluate. Patient's son at bedside. Requesting a neurology consult for concerns of dementia. Vital signs temp 97.9, heart rate 89, respiratory rate 18, blood pressure 150/75 with pulse ox of 95% on room air On 09/05/2023 patient was seen and examined on the medical floor he is somnolent responsive to stimuli, in no apparent distress, patient is nothing by mouth, IV fluid was increased to 100 mL per hour, family is at the bedside in case was discussed in details with them, at this time they are agreeable for NG tube placement for medication and nutrition, will follow up closely on progress. On 09/06/2023 patient remains somnolent. Patient's son at bedside. NG tube was placed patient started on tube feedings. Discussed with nursing staff to assess for urinary retention and place Barr catheter if needed to assess urinary output. Patient remains on half normal saline. Neurology services following. On 09/07/2023 patient was seen and examined on the medical floor he is somnolent, less responsive today, stools was positive for C. diff, patient is currently receiving vancomycin through NG tube, he is also receiving his Parkinson disease medication and nutrition through NG tube, patient has IV fluid, he has a stool management system, prognosis is guarded, no family members available today. On 09/08/2023 patient was seen and examined on the medical floor, he is somnolent and responsive, in no apparent distress, he has NG tube in, and receiving medication and nutrition, he also has IV fluid, he is still having severe diarrhea, he is maintained on oral vancomycin through his NG tube, Questran was added, today patient has evidence of elevated liver enzymes, Tylenol Aricept and Namenda were held, patient blood pressure is on the low side, he will receive a dose of IV fluid, normal saline, will continue to monitor very closely. Son is at the bedside, different issues regarding his father's health were discussed in details. On 09/09/2023 patient remains on medical floor somnolent. liver enzymes went up again today. Patient remains on by mouth vancomycin infectious disease and neurology services following. Tentative plans for lumbar puncture. Repeat blood culture and lactic acid been ordered we'll also order liver ultrasound due to elevated liver enzymes. Current vital signs temp 97.9, heart rate 108, respiratory rate 18, blood pressure 97/50 Objective - Vital Signs Vital signs: Vital Signs Temp 99.3 F 09/09/23 08:00 Pulse 108 H 09/09/23 08:00 Resp 24 09/09/23 08:00 BP 104/62 09/09/23 08:00 Pulse Ox 92 L 09/09/23 08:00 FiO2 Intake & Output 09/08/23 09/09/23 09/09/23 18:59 06:59 18:59 Intake Total 1200 Output Total 825 500 Balance 375 -500 Weight 35.5 kg Intake: Intake, IV Titration 1200 Amount Sodium Chloride 0.45% 1, 1200 000 ml @ 100 mls/hr IV . Q10H [facility] Rx#:[id number] Output: Urine 125 500 Urine/Stool Mix 700 Other: Voiding Method Diaper Diaper External Catheter External Catheter - Exam In general patient is somnolent and nonverbal in no apparent distress HEENT head normocephalic and atraumatic Neck is supple no JVD no goiter no lymphadenopathy no carotid bruit Chest examination is clear to auscultation no crackles no wheezing Cardiac exam reveals regular heart sounds S1 and S2 no gallops no murmurs Abdomen is soft nontender no organomegaly with normal bowel sounds Extremity exam reveals no edema no cyanosis or clubbing - Labs CBC & Chem 7: 09/09/23 05:53 09/09/23 05:53 Labs: Abnormal Lab Results - Last 24 Hours (Table) 09/09/23 09/09/23 Range/Units 05:53 05:53 WBC 14.51 H (4.50-10.00) X 10*3/uL RBC 4.38 L (4.40-5.60) X 10*6/uL RDW 19.5 H (11.5-14.5) % Immature Gran # 0.19 H (0.00-0.04) X 10*3/uL Neutrophils # 12.09 H (1.80-7.70) X 10*3/uL Eosinophils # 0.02 L (0.04-0.35) X 10*3/uL Basophils # 0.11 H (0.00-0.10) X 10*3/uL Sodium 146 H (135-145) mmol/L Chloride 117 H (96-109) mmol/L Carbon Dioxide 20.9 L (21.6-31.8) mmol/L BUN 28.1 H (9.0-27.0) mg/dL BUN/Creatinine Ratio 46.83 H (12.00-20.00) Ratio Glucose 139 H (70-110) mg/dL Calcium 7.7 L (8.7-10.3) mg/dL AST 258 H (14-35) U/L ALT 153 H (10-49) U/L Alkaline Phosphatase 137 H (41-126) U/L C-Reactive Protein 7.20 H (0.00-0.80) mg/dL Total Protein 4.2 L (6.2-8.2) g/dL Albumin 2.1 L (3.8-4.9) g/dL Albumin/Globulin Ratio 1.00 L (1.60-3.17) Ratio Microbiology - Last 24 Hours (Table) 09/06/23 12:31 Urine Culture - Final Urine,Voided Escherichia coli Klebsiella pneumoniae Enterococcus faecium VRE 09/06/23 12:58 Blood Culture - Preliminary Blood Assessment and Plan Plan: Acute mental status changes Dehydration with acute kidney injury C. diff colitis Underlying history of Parkinson disease Underlying history of peptic ulcer disease Underlying history of hypertension Underlying history of dementia Underlying history of anemia Dysphasia. NG tube has been placed patient started on tube feedings Elevated liver enzymes. Liver ultrasound ordered At this time patient is admitted to medical floor He was started on gentle IV hydration Infectious disease service is following Neurology services consulted Patient started on by mouth vancomycin Blood culture ordered Home medications reviewed and reordered For DVT prophylaxis subcu Lovenox Will recheck labs in a.m.
[2023-09-09] MEDS: FERROUS SULFATE 325 MG TAB PO SCH (11:02)
[2023-09-09] MEDS: CARBIDOPA-LEVODOPA 25-100 MG 1 EACH TAB PO SCH ×2 (11:02→13:27)
[2023-09-09] MEDS: LACTOBACILLUS ACIDOPHILUS/PECT 1 EACH CAPSULE PO SCH ×2 (11:03→21:58)
[2023-09-09] MEDS: ASPIRIN 81 MG PO SCH ×2 (11:03→11:33)
[2023-09-09] MEDS: MULTIVITAMINS, THERA 1 EACH TAB PO SCH (11:03)
[2023-09-09] MEDS: SUCRALFATE 1 GM TAB PO SCH ×3 (11:03→18:07)
[2023-09-09] MEDS: ENOXAPARIN 40 MG/0.4 ML SYRINGE SQ SCH ×2 (11:03→11:33)
[2023-09-09] MEDS: CHOLESTYRAMINE (WITH SUGAR) 4 GM PACKET PO SCH ×2 (11:04→21:58)
[2023-09-09] MEDS: VANCOMYCIN ORAL SOLUTION 250 MG/5 ML BOTTLE PO SCH ×4 (11:05→21:58)
[2023-09-09 11:54] LABS: HSV I IgG Interp Negative (Negative); HSV II IgG Interp Negative (Negative)
[2023-09-09] MEDS ORDERED: FUROSEMIDE 10 MG/ML 2 ML VIAL IV ONE ×2 (15:57→23:06)
[2023-09-09 16:13] VITALS: BMI 11.2
[2023-09-09 17:34] LABS: Appearance,Urine Clear (Clear); Bilirubin,Urine Negative (Negative); Blood,Urine Negative (Negative); Color,Urine Yellow; Glucose,Urine (UA) Negative (Negative); Ketones,Urine Negative (Negative); Leukocyte Esterase,Urine Negative (Negative); Nitrite,Urine Negative (Negative); Protein,Urine Trace (Negative); Specific Gravity,Urine 1.019 (1.001-1.035); Urobilinogen,Urine <2.0 mg/dL (<2.0)
--- NOTE | 2023-09-09 17:53 | P.PN ---
Subjective Progress Note Date: 09/09/23 Principal diagnosis: Reason for follow-up is C. difficile colitis Patient is a 83-year-old male with a past medical history significant for dementia anxiety depression and residential resident patient was sent to the from the residential concerning for generalized weakness and decreased talking, patient apparently has received antibiotic for sinus infection before the patient was brought to the hospital did have diarrhea and the stool for C. difficile came back positive. On today's evaluation that is 09/09/2023 patient did have a low-grade fever 100.1 F this afternoon, the patient is requiring supplemental oxygen currently on 3 L nasal cannula oxygen the patient remains to be lethargic and unable to provide any history, the patient did have NG for feeding and fecal management system because of extensive diarrhea however no worsening output has been reported. Patient white count of 14.51, creatinine is 0.6, Pro-Roni 0.18. Urine culture positive with multiple pathogen Objective - Vital Signs Vital signs: Vital Signs Temp 99.3 F 09/09/23 08:00 Pulse 108 H 09/09/23 08:00 Resp 24 09/09/23 08:00 BP 104/62 09/09/23 08:00 Pulse Ox 92 L 09/09/23 08:00 FiO2 Intake & Output 09/08/23 09/09/23 09/09/23 18:59 06:59 18:59 Intake Total 1200 Output Total 825 500 Balance 375 -500 Weight 35.5 kg Intake: Intake, IV Titration 1200 Amount Sodium Chloride 0.45% 1, 1200 000 ml @ 100 mls/hr IV . Q10H [facility] Rx#:[id number] Output: Urine 125 500 Urine/Stool Mix 700 Other: Voiding Method Diaper Diaper External Catheter External Catheter - Exam GENERAL DESCRIPTION: An elderly male lying in bed in no distress RESPIRATORY SYSTEM: Unlabored breathing , decreased breath sounds at bases HEART: S1 S2 regular rate and rhythm , ABDOMEN: Soft , no tenderness EXTREMITIES: No edema feet - Labs CBC & Chem 7: 09/09/23 05:53 09/09/23 05:53 Labs: Abnormal Lab Results - Last 24 Hours (Table) 09/09/23 09/09/23 Range/Units 05:53 05:53 WBC 14.51 H (4.50-10.00) X 10*3/uL RBC 4.38 L (4.40-5.60) X 10*6/uL RDW 19.5 H (11.5-14.5) % Immature Gran # 0.19 H (0.00-0.04) X 10*3/uL Neutrophils # 12.09 H (1.80-7.70) X 10*3/uL Eosinophils # 0.02 L (0.04-0.35) X 10*3/uL Basophils # 0.11 H (0.00-0.10) X 10*3/uL Sodium 146 H (135-145) mmol/L Chloride 117 H (96-109) mmol/L Carbon Dioxide 20.9 L (21.6-31.8) mmol/L BUN 28.1 H (9.0-27.0) mg/dL BUN/Creatinine Ratio 46.83 H (12.00-20.00) Ratio Glucose 139 H (70-110) mg/dL Calcium 7.7 L (8.7-10.3) mg/dL AST 258 H (14-35) U/L ALT 153 H (10-49) U/L Alkaline Phosphatase 137 H (41-126) U/L C-Reactive Protein 7.20 H (0.00-0.80) mg/dL Total Protein 4.2 L (6.2-8.2) g/dL Albumin 2.1 L (3.8-4.9) g/dL Albumin/Globulin Ratio 1.00 L (1.60-3.17) Ratio Microbiology - Last 24 Hours (Table) 09/06/23 12:31 Urine Culture - Final Urine,Voided Escherichia coli Klebsiella pneumoniae Enterococcus faecium VRE 09/06/23 12:58 Blood Culture - Preliminary Blood Assessment and Plan (1) C. difficile colitis Current Visit: Yes Status: Acute Code(s): A04.72 - ENTEROCOLITIS D/T CLOSTRIDIUM DIFFICILE, NOT SPCF RECUR SNOMED Code(s): 502202361 Plan: 1patient with mental status changes likely multifactorial possibly metabolic or neurologic clinical suspicious low for possible MANAGER [employer] infection in this patient with no fever or elevated white count 2-patient did recently get exposed to antibiotic for sinus infection and now has developed diarrhea and stool for C. difficile is positive however clinically doubt C. difficile by itself responsible for his mental status changes 3-patient to continue with vancomycin 125 mg p.o. every 6 hours, 4-patient did have a negative UA however urine culture is growing 3 different pathogen more likely contamination we did repeat his UA on 09/09/2023 and came back to be negative 5-patient did have a low-grade fever and also noted to be slightly hypoxic we will check a chest x-ray and a procalcitonin if elevated will consider adding antibiotic 6-patient is currently waiting for LP patient did have a negative HSV serology, that will make HSV encephalitis less likely we will discontinue acyclovir Dictation was produced using [employer] dictation software. please excuse any grammatical, word or spelling errors. Time with Patient: Less than 30
[2023-09-09] MEDS ORDERED: ACYCLOVIR SODIUM 700 MG in SODIUM CHLORIDE 0.9% 100 ML IVPB SCH (18:00)
--- NOTE | 2023-09-09 18:26 | US ---
EXAMINATION TYPE: US liver DATE OF EXAM: 09/09/2023 COMPARISON: NONE CLINICAL INDICATION: Male, 83 years old with history of elevated liver enzymes; Elevated liver enzyme s TECHNIQUE: Multiple sonographic images of the right upper quadrant are obtained. FINDINGS: EXAM MEASUREMENTS: THREADER NOTES: *non-diagnostic study. Technical limitations due to large amount of overlying randy l content and patient's condition, not responsive with right arm tight to his side Pancreas: Obscured by bowel gas Liver: Obscured by overlying bowel gas Gallbladder: Obscured by overlying bowel gas CBD: Obscured by overlying bowel gas Right Kidney: limited evaluation, no evidence of hydronephrosis IMPRESSION: 1. Essentially nondiagnostic examination due to excessive bowel gas.
--- NOTE | 2023-09-09 18:27 | XR ---
EXAMINATION TYPE: XR chest 1V portable DATE OF EXAM: 09/09/2023 6:05 PM CLINICAL INDICATION:Male, 83 years old with history of shortness of breath; [facility] COMPARISON: Chest radiographs from on 02/18/2024. TECHNIQUE: XR chest 1V portable Frontal view of the chest. FINDINGS: Lungs/Pleura: No evidence of focal consolidation or pneumothorax. Blunting of the costophrenic angles is present. Pulmonary vascularity: Pulmonary vascular congestion. Heart/mediastinum: Cardiomediastinal silhouette is unremarkable. Musculoskeletal: No acute osseous pathology. Nasogastric tube projects over the gastric lumen. IMPRESSION: Cardiomegaly, pulmonary vascular congestion and bilateral pleural effusions. Correlate with BNP for c ongestive heart failure.
[2023-09-09] MEDS: KETOTIFEN 0.025% OPHTH DROPS 5 ML BTL BOTH EYES SCH ×2 (21:46→22:21)
[2023-09-09] MEDS: [UNRECOGNIZED DRUG - OTHER] BOTH EYES SCH (21:47)
[2023-09-09] MEDS: PANTOPRAZOLE 40 MG TABLET PO SCH (21:58)
[2023-09-09 23:01] LABS: Glucose,Whole Blood 139 mg/dL (70-110)
[2023-09-10] MEDS ORDERED: FUROSEMIDE 10 MG/ML 2 ML VIAL IV ONE (00:06)
[2023-09-10] MEDS: ALBUMIN HUMAN 25% 50 ML in EMPTY BAG 1 BAG IVPB SCH ×2 (00:21→02:47)
[2023-09-10 00:28] LABS: ABG HCO3 23 mmol/L (21-25); ABG Oxygen Saturation 90.8 % (94-97); ABG PCO2 28 mmHg (35-45); ABG PH 7.52 (7.35-7.45); ABG TCO2 24 mmol/L (19-24); Allen Test Performed? Yes
[2023-09-10 00:30] LABS: ABG PO2 52 mmHg (83-108)
[2023-09-10 02:11] LABS: African American GFR (CKD) >90 (>60 ml/min/1.73 sqM); Anion Gap 7 mmol/L; Blood Urea Nitrogen 34 mg/dL (9-20); Calcium 7.5 mg/dL (8.4-10.2); Carbon Dioxide 20 mmol/L (22-30); Chloride 114 mmol/L (98-107); Glucose 154 mg/dL (74-99); Non-African American GFR(CKD) 85 (>60 ml/min/1.73 sqM); Potassium 3.4 mmol/L (3.5-5.1); Sodium 141 mmol/L (137-145)
[2023-09-10] MEDS: SODIUM CHLORIDE 0.45% 1,000 ML IV SCH ×5 (02:48→20:49)
[2023-09-10 02:56] LABS: Anisocytosis Slight; Basophils % (A) 0 %; Eosinophils % (A) 0 %; HCT 40.4 % (39.0-53.0); HGB 13.5 gm/dL (13.0-17.5); Lymphocytes # (A) 1.2 k/uL (1.0-4.8); Lymphocytes % (A) 8 %; MCH 32.2 pg (25.0-35.0); MCHC 33.4 g/dL (31.0-37.0); MCV 96.3 fL (80.0-100.0); Macrocytosis Slight; Mean Platelet Volume 8.5; Monocytes # (A) 0.3 k/uL (0-1.0); Monocytes % (A) 2 %; Neutrophils # (A) 13.5 k/uL (1.3-7.7); Neutrophils % (A) 89 %; Platelet Count 167 k/uL (150-450); RBC 4.19 m/uL (4.30-5.90); RDW 16.6 % (11.5-15.5); WBC 15.1 k/uL (3.8-10.6)
[2023-09-10 06:03] LABS: Glucose,Whole Blood 142 mg/dL (70-110)
[2023-09-10 06:13] LABS: Herpes simplex I and/or II IgM 0.21 INDEX (<=0.90); Herpes simplex IgG I Ab 0.1 (< or = 0.90); Herpes simplex IgG II Ab 0.07 (< or = 0.90)
[2023-09-10] MEDS: ASPIRIN 81 MG PO SCH (08:20)
[2023-09-10] MEDS: MULTIVITAMINS, THERA 1 EACH TAB PO SCH (08:20)
[2023-09-10] MEDS: SUCRALFATE 1 GM TAB PO SCH ×3 (08:20→17:14)
[2023-09-10] MEDS: polyethylene glycoL 3350 17 GM POWD.PACK PO SCH (08:20)
[2023-09-10] MEDS: FERROUS SULFATE 325 MG TAB PO SCH (08:20)
[2023-09-10] MEDS: ENOXAPARIN 40 MG/0.4 ML SYRINGE SQ SCH (08:21)
[2023-09-10] MEDS: CARBIDOPA-LEVODOPA 25-100 MG 1 EACH TAB PO SCH ×2 (08:21→11:42)
[2023-09-10] MEDS: LACTOBACILLUS ACIDOPHILUS/PECT 1 EACH CAPSULE PO SCH ×2 (08:23→20:49)
[2023-09-10 08:28] LABS: NT-Pro-B-Type Natriuretic Pept 1360 pg/mL
[2023-09-10 08:47] LABS: ALT 250 U/L (4-49); AST 379 U/L (17-59); African American GFR (CKD) >90 (>60 ml/min/1.73 sqM); Albumin 2.2 g/dL (3.5-5.0); Albumin/Globulin Ratio 0.8; Alkaline Phosphatase 144 U/L (38-126); Anion Gap 7 mmol/L; Blood Urea Nitrogen 37 mg/dL (9-20); Calcium 7.8 mg/dL (8.4-10.2); Carbon Dioxide 23 mmol/L (22-30); Chloride 115 mmol/L (98-107); Globulin 2.6 g/dL; Glucose 150 mg/dL (74-99); Non-African American GFR(CKD) 85 (>60 ml/min/1.73 sqM); Potassium 3.5 mmol/L (3.5-5.1); Sodium 145 mmol/L (137-145); Total Protein 4.8 g/dL (6.3-8.2)
[2023-09-10 08:50] LABS: C Reactive Protein 18.9 mg/dL (<1.0)
[2023-09-10] MEDS: VANCOMYCIN ORAL SOLUTION 250 MG/5 ML BOTTLE PO SCH ×4 (08:58→20:49)
[2023-09-10 10:53] LABS: HGB 12.4 g/dL (13.0-17.0); MCH 31.2 pg (27.0-32.0); MCHC 33.5 g/dL (32.0-37.0); MCV 93.2 FL (80.0-97.0); Mean Platelet Volume 11.6 FL (9.5-12.2); NRBC Per 100 WBC 0 X 10*3/uL (0.00-0.01); Platelet Count 164 X 10*3/uL (140-440); RBC 3.97 X 10*6/uL (4.40-5.60); RDW 19.2 % (11.5-14.5); WBC 14.24 X 10*3/uL (4.50-10.00)
--- NOTE | 2023-09-10 11:07 | P.PN ---
Subjective Progress Note Date: 09/09/23 08/09/2023: Patient was seen for a follow-up. Patient clinically not improved. I spoke to patient's and daughter personally. They informed the patient has been wheelchair bound for last 2 years. This is related to combination of his back issues, Parkinson's and dementia. Patient does have dementia as well, however he was conversational before he got sick. Now he cannot hold any conversation. 08/08/2023: Patient was seen for a follow-up. Patient essentially unchanged. 08/07/2023: Patient initially seen by Dr. Garland Haro. Please refer to his note for details. Patient is a 83-year-old male with Parkinson's who has recent acute sinusitis and since then has confusion. Patient could not get MRI because of head position so needs to be ordered once condition improves. EEG was negative for seizures. Dr. Haro ordered repeat CT head. Some of the work-up during this hospital visit consisted of: Patient is afebrile. Initial wbc is 12K and repeat is 10K Sodium is 140--151, creatinine is 0.73. BUN is 52, plasma lactate vein is 2.1. Calcium is 8.2, magnesium 2.6 AST ALT is within normal limits Vitamin B12: 2537 Serum folate 24.80 Ammonia 9 TSH: 0.514 u/a seems negative for UTI SARS-COV2, Influenza A/B and RSV PCR is not detected. CT head is reported as no acute intracranial hemorrhage or midline shift. There is mild to moderate diffuse-age related cerebral atrophy and chronic small vessel ischemic change redemostrated. No significant change from prior. I personally reviewed the CT of the head and there is no acute subacute ischemia. There is no mass effect. There is no acute or subacute bleed. Routine EEG: As abnormal. The background slowing is suggestive of moderate encephalopathy. Otherwise there is no focal slowing, epileptiform discharges or seizure on the EEG. Objective - Vital Signs Vital signs: Vital Signs Temp 100.1 F H 09/09/23 14:00 Pulse 104 H 09/09/23 14:00 Resp 32 H 09/09/23 14:00 BP 104/60 09/09/23 14:00 Pulse Ox 93 L 09/09/23 14:00 FiO2 Intake & Output 09/08/23 09/09/23 09/09/23 18:59 06:59 18:59 Intake Total 1200 Output Total 825 500 350 Balance 375 -500 -350 Weight 35.5 kg 35.5 kg Intake: Intake, IV Titration 1200 Amount Sodium Chloride 0.45% 1, 1200 000 ml @ 100 mls/hr IV . Q10H [facility] Rx#:[id number] Output: Urine 125 500 350 Urine/Stool Mix 700 Other: Voiding Method Diaper Diaper Diaper External Catheter External Catheter External Catheter - Exam Patient is an elderly male, who is laying in the bed, obtunded. His mouth is open, he is slightly morning. He slightly snoring. Patient does not respond to calling his name. He moans a little. He appears slightly warm. Patient did not cooperate with examination. - Labs CBC & Chem 7: 09/10/23 07:35 09/10/23 07:35 Labs: Abnormal Lab Results - Last 24 Hours (Table) 09/09/23 09/09/23 Range/Units 05:53 05:53 WBC 14.51 H (4.50-10.00) X 10*3/uL RBC 4.38 L (4.40-5.60) X 10*6/uL RDW 19.5 H (11.5-14.5) % Immature Gran # 0.19 H (0.00-0.04) X 10*3/uL Neutrophils # 12.09 H (1.80-7.70) X 10*3/uL Eosinophils # 0.02 L (0.04-0.35) X 10*3/uL Basophils # 0.11 H (0.00-0.10) X 10*3/uL Sodium 146 H (135-145) mmol/L Chloride 117 H (96-109) mmol/L Carbon Dioxide 20.9 L (21.6-31.8) mmol/L BUN 28.1 H (9.0-27.0) mg/dL BUN/Creatinine Ratio 46.83 H (12.00-20.00) Ratio Glucose 139 H (70-110) mg/dL Calcium 7.7 L (8.7-10.3) mg/dL AST 258 H (14-35) U/L ALT 153 H (10-49) U/L Alkaline Phosphatase 137 H (41-126) U/L C-Reactive Protein 7.20 H (0.00-0.80) mg/dL Total Protein 4.2 L (6.2-8.2) g/dL Albumin 2.1 L (3.8-4.9) g/dL Albumin/Globulin Ratio 1.00 L (1.60-3.17) Ratio Microbiology - Last 24 Hours (Table) 09/06/23 12:31 Urine Culture - Final Urine,Voided Escherichia coli Klebsiella pneumoniae Enterococcus faecium VRE 09/06/23 12:58 Blood Culture - Preliminary Blood Assessment and Plan Assessment: This is an 83-year-old gentleman with history of Parkinson's disease, dementia who presents because of generalized weakness and confusion. Per the nurse was reported to her that this has been going on for the last 1 -2 weeks and per family members had recent sinus infection and was given abx then became confused. Encephalopathy which is weakness. Is due to metabolic encephalopathy Worsening hyponatremia likely due to dehydration Acute, polymicrobial UTI, with E. coli, klebsiella pneumonia, and enterococcus faecium VRE Acute kidney injury, resolved Elevated hepatic enzymes, worsening C. difficile colitis Hypermagnesemia mild. Parkinson's disease for about 6 months Demenia for past couple years but is able to feed self, communicate and walks with walker (per patient's son), although patient's and daughter mentions that he has been wheelchair-bound for last 2 years. Dementia due to Parkinson's disease Elevated plasma lactic acid, resolved. Plan: Patient continues to be severely encephalopathic. This may be related to polymicrobial UTI, and C. difficile colitis and toxic metabolic encephalopathy. However intracranial process needs to be rule out. I discussed with patient's , who consented for lumbar puncture. Discussed with ID as well. Patient is empirically placed on acyclovir. Per Dr. Haro report, MRI the brain could not be done since per technical manager [employer] team "Could not connect coil over pt head due to patient anatomy. Pt kyphotic". Once his is more awake and responsive will reorder the MRI and attempt again to rule out any stroke or other central cause. In the meantime, will order a repe at CT head to assess if any change compared to prior CT head. Patient is resumed on his home medication of Sinemet 25-100mg 1 tab bid via NG tube and his no improvement in his neurological condition. Patient is on home medication for Aricept and Namenda We'll defer the rest of the medical management to the primary team.
--- NOTE | 2023-09-10 11:12 | P.PCN ---
Date of Procedure: 09/09/23 Preoperative Diagnosis: Altered mental status, rule out encephalitis meningitis Postoperative Diagnosis: Altered mental status, rule out meningitis encephalitis Procedure(s) Performed: Lumbar puncture, attempted, failed Anesthesia: local Surgeon: Shay Conklin Estimated Blood Loss (ml): 0 Pathology: none sent Condition: critical Disposition: floor Indications for Procedure: Rule out meningitis encephalitis Description of Procedure: Informed consent was obtained from patient's . Very detailed risks and benefits of the procedure, and the indication of procedure was explained to the patient in detail in the presence of nurse. They were informed of the risk of infection, bleeding, numbness, back pain, and the features of post spinal headache and the treatment. Patient was placed in the left lateral recumbent position. The nurse and nursing gait assisted the procedure because patient is very stiff. Patient has severe arthritis, kyphosis, and possible some degree of scoliosis. The procedure was performed under strict aseptic conditions. L4 lumbar space was identified and marked. Low back region was sterilized with ChloraPrep and then with Betadine, and anesthetized with 1% lidocaine. A spinal needle 20-gauge, 3.5 inch inserted at L5 lumbar space. I was not able to enter subarachnoid space due to significant arthritis and perhaps curvature of the spine. 2 or 3 drops of blood came back in the spinal needle. After couple attempts, the procedure was aborted. Because of curvature spine, patient needs to have lumbar puncture done under interventional radiology guidance. Patient tolerated procedure well.
[2023-09-10 11:31] LABS: Glucose,Whole Blood 137 mg/dL (70-110)
[2023-09-10] MEDS: CHOLESTYRAMINE (WITH SUGAR) 4 GM PACKET PO SCH ×2 (11:42→17:14)
[2023-09-10] MEDS: IBUPROFEN 600 MG TAB PO PRN (12:08)
--- NOTE | 2023-09-10 12:39 | P.PN ---
Subjective Progress Note Date: 09/10/23 Principal diagnosis: Reason for follow-up is C. difficile colitis Patient is a 83-year-old male with a past medical history significant for dementia anxiety depression and custodial resident patient was sent to the from the custodial concerning for generalized weakness and decreased talking, patient apparently has received antibiotic for sinus infection before the patient was brought to the hospital did have diarrhea and the stool for C. difficile came back positive.Patient noticed to have worsening of his respiratory status for which a nonrebreather has been placed and the patient has been transferred to the telemetry floor. On today's evaluation that is 09/10/2023, the patient did spike a fever this morning of 101 F patient is lethargic unable to provide any history requiring more supplemental oxygen still have the NG, for feeding and medication did have a fecal management system for the diarrhea no worsening output has been reported. Patient did have white count of 14.24 creatinine 0.74, liver enzymes mildly elevated, did have a procalcitonin 0.36 Objective - Vital Signs Vital signs: Vital Signs Temp 101.2 F H 09/10/23 12:00 Pulse 100 09/10/23 12:00 Resp 27 H 09/10/23 12:00 BP 109/59 09/10/23 12:00 Pulse Ox 91 L 09/10/23 12:00 FiO2 Intake & Output 09/09/23 09/10/23 09/10/23 18:59 06:59 18:59 Output Total 410 850 Balance -410 -850 Weight 35.5 kg 35.5 kg Output: Urine 410 850 Other: Voiding Method Diaper Indwelling Catheter Indwelling Catheter External Catheter - Exam GENERAL DESCRIPTION: An elderly male lying in bed in no distress RESPIRATORY SYSTEM: Unlabored breathing , coarse breath sounds bilaterally HEART: S1 S2 regular rate and rhythm , ABDOMEN: Soft , no tenderness EXTREMITIES: No edema feet - Labs CBC & Chem 7: 09/10/23 07:35 09/10/23 07:35 Labs: Abnormal Lab Results - Last 24 Hours (Table) 09/09/23 09/09/23 09/10/23 Range/Units 17:00 22:59 00:09 WBC (3.8-10.6) k/uL RBC (4.30-5.90) m/uL Hgb (13.0-17.0) g/dL Hct (39.6-50.0) % RDW (11.5-15.5) % Neutrophils # (1.3-7.7) k/uL ABG pH 7.52 H (7.35-7.45) ABG pCO2 28 L (35-45) mmHg ABG pO2 52 L* (83-108) mmHg ABG O2 Saturation 90.8 L (94-97) % Potassium (3.5-5.1) mmol/L Chloride (98-107) mmol/L Carbon Dioxide (22-30) mmol/L BUN (9-20) mg/dL Glucose (74-99) mg/dL POC Glucose (mg/dL) 139 H (70-110) mg/dL Calcium (8.4-10.2) mg/dL AST (17-59) U/L ALT (4-49) U/L Alkaline Phosphatase (38-126) U/L Ammonia (<30) umol/L C-Reactive Protein (<1.0) mg/dL Total Protein (6.3-8.2) g/dL Albumin (3.5-5.0) g/dL Procalcitonin (0.02-0.09) ng/mL Urine Protein Trace H (Negative) 09/10/23 09/10/23 09/10/23 Range/Units 01:52 01:52 01:52 WBC 15.1 H (3.8-10.6) k/uL RBC 4.19 L (4.30-5.90) m/uL Hgb (13.0-17.0) g/dL Hct (39.6-50.0) % RDW 16.6 H (11.5-15.5) % Neutrophils # 13.5 H (1.3-7.7) k/uL ABG pH (7.35-7.45) ABG pCO2 (35-45) mmHg ABG pO2 (83-108) mmHg ABG O2 Saturation (94-97) % Potassium 3.4 L (3.5-5.1) mmol/L Chloride 114 H (98-107) mmol/L Carbon Dioxide 20 L (22-30) mmol/L BUN 34 H (9-20) mg/dL Glucose 154 H (74-99) mg/dL POC Glucose (mg/dL) (70-110) mg/dL Calcium 7.5 L (8.4-10.2) mg/dL AST (17-59) U/L ALT (4-49) U/L Alkaline Phosphatase (38-126) U/L Ammonia 32 H (<30) umol/L C-Reactive Protein (<1.0) mg/dL Total Protein (6.3-8.2) g/dL Albumin (3.5-5.0) g/dL Procalcitonin (0.02-0.09) ng/mL Urine Protein (Negative) 09/10/23 09/10/23 09/10/23 Range/Units 06:02 07:35 07:35 WBC 14.24 H (3.8-10.6) k/uL RBC 3.97 L (4.30-5.90) m/uL Hgb 12.4 L (13.0-17.0) g/dL Hct 37.0 L (39.6-50.0) % RDW 19.2 H (11.5-15.5) % Neutrophils # (1.3-7.7) k/uL ABG pH (7.35-7.45) ABG pCO2 (35-45) mmHg ABG pO2 (83-108) mmHg ABG O2 Saturation (94-97) % Potassium (3.5-5.1) mmol/L Chloride 115 H (98-107) mmol/L Carbon Dioxide (22-30) mmol/L BUN 37 H (9-20) mg/dL Glucose 150 H (74-99) mg/dL POC Glucose (mg/dL) 142 H (70-110) mg/dL Calcium 7.8 L (8.4-10.2) mg/dL AST 379 H (17-59) U/L ALT 250 H (4-49) U/L Alkaline Phosphatase 144 H (38-126) U/L Ammonia (<30) umol/L C-Reactive Protein 18.9 H (<1.0) mg/dL Total Protein 4.8 L (6.3-8.2) g/dL Albumin 2.2 L (3.5-5.0) g/dL Procalcitonin (0.02-0.09) ng/mL Urine Protein (Negative) 09/10/23 09/10/23 Range/Units 07:36 11:30 WBC (3.8-10.6) k/uL RBC (4.30-5.90) m/uL Hgb (13.0-17.0) g/dL Hct (39.6-50.0) % RDW (11.5-15.5) % Neutrophils # (1.3-7.7) k/uL ABG pH (7.35-7.45) ABG pCO2 (35-45) mmHg ABG pO2 (83-108) mmHg ABG O2 Saturation (94-97) % Potassium (3.5-5.1) mmol/L Chloride (98-107) mmol/L Carbon Dioxide (22-30) mmol/L BUN (9-20) mg/dL Glucose (74-99) mg/dL POC Glucose (mg/dL) 137 H (70-110) mg/dL Calcium (8.4-10.2) mg/dL AST (17-59) U/L ALT (4-49) U/L Alkaline Phosphatase (38-126) U/L Ammonia (<30) umol/L C-Reactive Protein (<1.0) mg/dL Total Protein (6.3-8.2) g/dL Albumin (3.5-5.0) g/dL Procalcitonin 0.36 H (0.02-0.09) ng/mL Urine Protein (Negative) Microbiology - Last 24 Hours (Table) 09/06/23 12:58 Blood Culture - Preliminary Blood Assessment and Plan (1) C. difficile colitis Current Visit: Yes Status: Acute Code(s): A04.72 - ENTEROCOLITIS D/T CLOSTRIDIUM DIFFICILE, NOT SPCF RECUR SNOMED Code(s): 372974908 (2) Sepsis Current Visit: Yes Status: Acute Code(s): A41.9 - SEPSIS, UNSPECIFIED ORGANISM SNOMED Code(s): 84115950 (3) Aspiration pneumonia Current Visit: Yes Status: Acute Code(s): J69.0 - PNEUMONITIS DUE TO INHALATION OF FOOD AND VOMIT SNOMED Code(s): 949960823 Plan: 1patient with mental status changes likely multifactorial possibly metabolic or neurologic clinical suspicious low for possible DIRECTOR OF [employer]ING infection in this patient with no fever or elevated white count 2-patient did recently get exposed to antibiotic for sinus infection and now has developed diarrhea and stool for C. difficile is positive however clinically doubt C. difficile by itself responsible for his mental status changes 3-patient to continue with vancomycin 125 mg p.o. every 6 hours, 4-patient did have a negative HSV serology, that will make HSV encephalitis less likely, acyclovir was discontinued 5patient did have worsening of his respiratory status has developed a new fever high clinical suspicion for possible aspiration pneumonia blood culture has been obtained we will start the patient on Zosyn Multiple family members at the bedside questions were answered Prognosis remains to be guarded Dictation was produced using [employer] software. please excuse any grammatical, word or spelling errors. Time with Patient: Greater than 30
[2023-09-10] MEDS: PIPERACILLIN-TAZOBACTAM 3.375 GM in SODIUM CHLORIDE 0.9% 100 ML IVPB SCH ×2 (13:12→20:49)
--- NOTE | 2023-09-10 15:40 | P.CNPUL ---
History of Present Illness Consult date: 09/10/23 Requesting physician: Radha Collins Reason for consult: dyspnea, hypoxemia Chief complaint: Altered mental status, hypoxemia History of present illness: This is an 83-year-old male patient who resides at [facility] on the [place] and had recently been on antibiotics for a sinus infection and then developed C. difficile toxins. He developed altered mental status more so than his baseline and was brought here to the emergency room for the same. He has been here since 09/03/2023. Her consulted today because the patient has increased work of breathing. He is now on a nonrebreather mask to maintain O2 saturations 90-91%. He has normal sitting at 50 MLS per hour. He's been nourished via an naso gastric tube with vital 1.5 at 65 ML's per hour. Most recent chest x-ray reveals cardiomegaly, pulmonary vascular congestion and bilateral pleural effusions. Urine culture is positive for E. coli, Klebsiella pneumoniae and enterococcus faecium VRE. Blood culture revealed no growth. Count 14.2. Hemoglobin 12.4. Platelets 164. Sodium 145. Potassium 3.5. Bicarb 23. BUN 37. Creatinine 0.74. Glucose 150. AST 379. ALT 250. Alk phos 144. Pro- calcitonin 0.36. He is currently on antibiotics in the form of oral vancomycin, Zosyn. Lovenox for DVT prophylaxis. He is seen today in consultation on the selective care unit. He is laying in bed. On a nonrebreather mask. Rapid respirations. Temperature 101.2. Unresponsive to verbal or deep painful stimuli. His and daughter at the bedside. Review of Systems ROS unobtainable: due to mental status Past Medical History Past Medical History: No Reported History, Dementia Additional Past Medical History / Comment(s): Ing. Hernia; Hx of kidney stones History of Any Multi-Drug Resistant Organisms: None Reported Past Surgical History: No Surgical Hx Reported Additional Past Surgical History / Comment(s): colonoscopy; Past Anesthesia/Blood Transfusion Reactions: No Reported Reaction Past Psychological History: Anxiety, Depression Smoking Status: Unknown if ever smoked Past Alcohol Use History: None Reported Past Drug Use History: None Reported - Past Family History Mother History Unknown: Yes Family Medical History: Diabetes Mellitus Medications and Allergies Home Medications Medication Instructions Recorded Confirmed Type Simethicone [Gas-X] 125 mg PO ACHS PRN 10/04/18 01/04/24 History Acetaminophen [Tylenol Arthritis] 650 mg PO HS 08/12/22 09/03/23 History Donepezil HCl [Aricept] 10 mg PO HS 08/12/22 09/03/23 History Multivitamins, Thera [Multivitamin 1 tab PO DAILY 01/22/23 09/03/23 History (formulary)] Ferrous Sulfate [Feosol] 325 mg PO DAILY 30 Days #30 tab 03/20/23 09/03/23 Rx Acetaminophen [Tylenol] 650 mg PO Q4H PRN 09/03/23 09/03/23 History Aspirin 81 mg PO DAILY 09/03/23 09/03/23 History Carbidopa-Levodopa 25-100 mg 1 tab PO BID@0800,1200 09/03/23 09/03/23 History [Sinemet 25-100] Ketotifen Fumarate [Alaway] 1 drop BOTH EYES HS 09/03/23 09/03/23 History Lactose-Reduced Food [Ensure Plus] 237 ml PO DAILY 09/03/23 09/03/23 History Memantine [Namenda] 5 mg PO BID 09/03/23 09/03/23 History Menthol [Biofreeze] 1 applic TOPICAL BID 09/03/23 09/03/23 History Ocusoft Lid Scrub Plus External 1 applic BOTH EYES HS 09/03/23 09/03/23 History Pad (Eyelid Cleansers) Omeprazole [PriLOSEC] 20 mg PO HS 09/03/23 09/03/23 History Sucralfate [Carafate] 1 gm PO AC-TID@08,12,17 09/03/23 09/03/23 History guaiFENesin [guaiFENesin Oral 200 mg PO Q4H PRN 09/03/23 09/03/23 History Solution] polyethylene glycoL 3350 [Miralax] 17 gm PO DAILY 09/03/23 09/03/23 History Allergies Allergy/AdvReac Type Severity Reaction Status Date / Time garlic Allergy "tears his Verified 09/03/23 09:38 gut up" Physical Exam Vitals: Vital Signs Temp Pulse Resp BP Pulse Ox 09/10/23 12:00 101.2 F H 100 27 H 109/59 91 L 09/10/23 08:26 25 H 91 L 01/11/24 08:25 28 H 87 L 09/10/23 08:15 101.1 F H 92 26 H 111/62 90 L 09/10/23 04:00 98.0 F 92 26 H 106/56 95 09/10/23 02:57 28 H 95 09/10/23 02:18 99.9 F H 100 26 H 103/71 94 L 09/09/23 23:12 100.0 F H 105 H 35 H 100/63 95 09/09/23 19:36 99.2 F 51 L 22 120/51 95 Intake and Output 09/10/23 09/10/23 09/10/23 06:59 14:59 22:59 Output Total 850 Balance -850 Output: Urine 850 Other: Voiding Method Indwelling Catheter Indwelling Catheter Weight 35.5 kg GENERAL EXAM: Obtunded, frail, cachectic 83-year-old male on 100% FiO2 via nonrebreather mask. HEAD: Normocephalic. EYES: Normal reaction of pupils, equal size. NOSE: Clear with pink turbinates. THROAT: No erythema or exudates. NECK: No masses, no JVD. CHEST: No chest wall deformity. LUNGS: Equal air entry with coarse rhonchi bilaterally. CVS: S1 and S2 normal with no audible murmur, regular rhythm. ABDOMEN: No hepatosplenomegaly, normal bowel sounds, no guarding or rigidity. SPINE: No scoliosis or deformity SKIN: No rashes CENTRAL NERVOUS SYSTEM: No focal deficits, tone is normal in all 4 extremities. EXTREMITIES: There is no peripheral edema. No clubbing, no cyanosis. Peripheral pulses are intact. Results - Laboratory Findings CBC and BMP: 09/10/23 07:35 09/10/23 07:35 ABG ABG pH 7.52 (7.35-7.45) H 09/10/23 00:09 ABG pCO2 28 mmHg (35-45) L 09/10/23 00:09 ABG pO2 52 mmHg (83-108) L* 09/10/23 00:09 ABG O2 Saturation 90.8 % (94-97) L 09/10/23 00:09 PT/INR, D-dimer PT 12.0 sec (10.0-12.5) 09/03/23 09:51 INR 1.1 (<1.2) 09/03/23 09:51 Abnormal lab findings: Abnormal Labs 09/03/23 09/03/23 09/03/23 09:51 09:51 09:51 WBC 12.0 H RBC Hgb Hct RDW 15.8 H Immature Gran # Neutrophils # Neutrophils # (Manual) 10.50 H Lymphocytes # (Manual) 0.60 L Eosinophils # Basophils # Metamyelocytes # (Man) 0.12 H NRBC/100 WBC Diff Toxic Granulation Macrocytosis (manual) ABG pH ABG pCO2 ABG pO2 ABG O2 Saturation Sodium Potassium Chloride 110 H Carbon Dioxide 20 L BUN 52 H Creatinine BUN/Creatinine Ratio Glucose 120 H POC Glucose (mg/dL) Plasma Lactic Acid Jose Antonio Calcium 8.2 L Magnesium 2.6 H AST ALT Alkaline Phosphatase Ammonia C-Reactive Protein Total Protein 5.1 L Albumin 2.5 L Albumin/Globulin Ratio Vitamin B12 Procalcitonin Urine Protein Trace H Urine Ketones 2+ H C. difficile (EIA) Intrp 09/03/23 09/03/23 09/03/23 09:51 12:48 15:33 WBC RBC Hgb Hct RDW Immature Gran # Neutrophils # Neutrophils # (Manual) Lymphocytes # (Manual) Eosinophils # Basophils # Metamyelocytes # (Man) NRBC/100 WBC Diff Toxic Granulation Macrocytosis (manual) ABG pH ABG pCO2 ABG pO2 ABG O2 Saturation Sodium Potassium Chloride Carbon Dioxide BUN Creatinine BUN/Creatinine Ratio Glucose POC Glucose (mg/dL) Plasma Lactic Acid Jose Antonio 2.1 H* 2.1 H* 2.3 H* Calcium Magnesium AST ALT Alkaline Phosphatase Ammonia C-Reactive Protein Total Protein Albumin Albumin/Globulin Ratio Vitamin B12 Procalcitonin Urine Protein Urine Ketones C. difficile (EIA) Intrp 09/04/23 09/04/23 09/04/23 05:57 05:57 12:19 WBC 10.15 H RBC Hgb Hct RDW 18.4 H Immature Gran # Neutrophils # Neutrophils # (Manual) 8.32 H Lymphocytes # (Manual) 0.81 L Eosinophils # Basophils # Metamyelocytes # (Man) NRBC/100 WBC Diff 0.06 H Toxic Granulation Macrocytosis (manual) 2+ A ABG pH ABG pCO2 ABG pO2 ABG O2 Saturation Sodium 148 H Potassium Chloride 112 H Carbon Dioxide BUN 42.2 H Creatinine BUN/Creatinine Ratio 52.75 H Glucose POC Glucose (mg/dL) Plasma Lactic Acid Jose Antonio Calcium 8.3 L Magnesium 2.5 H AST ALT Alkaline Phosphatase Ammonia C-Reactive Protein Total Protein 4.6 L Albumin 2.5 L Albumin/Globulin Ratio 1.19 L Vitamin B12 2537.0 H Procalcitonin Urine Protein Urine Ketones C. difficile (EIA) Intrp 09/05/23 09/05/23 09/06/23 03:59 03:59 13:05 WBC 10.88 H RBC Hgb Hct RDW 19.0 H 16.2 H Immature Gran # 0.44 H Neutrophils # 8.23 H 8.4 H Neutrophils # (Manual) Lymphocytes # (Manual) Eosinophils # 0.02 L Basophils # Metamyelocytes # (Man) NRBC/100 WBC Diff 0.04 H Toxic Granulation Macrocytosis (manual) ABG pH ABG pCO2 ABG pO2 ABG O2 Saturation Sodium 151 H Potassium Chloride 117 H Carbon Dioxide BUN 33.7 H Creatinine BUN/Creatinine Ratio 42.12 H Glucose 135 H POC Glucose (mg/dL) Plasma Lactic Acid Jose Antonio Calcium 8.1 L Magnesium AST 42 H ALT Alkaline Phosphatase Ammonia C-Reactive Protein Total Protein 4.5 L Albumin 2.5 L Albumin/Globulin Ratio 1.25 L Vitamin B12 Procalcitonin Urine Protein Urine Ketones C. difficile (EIA) Intrp 09/06/23 09/06/23 09/07/23 13:05 15:10 05:47 WBC 10.73 H RBC Hgb Hct RDW 19.4 H Immature Gran # 0.20 H Neutrophils # 8.14 H Neutrophils # (Manual) Lymphocytes # (Manual) Eosinophils # Basophils # Metamyelocytes # (Man) NRBC/100 WBC Diff 0.02 H Toxic Granulation 2+ A Macrocytosis (manual) ABG pH ABG pCO2 ABG pO2 ABG O2 Saturation Sodium 146 H Potassium Chloride 117 H Carbon Dioxide BUN 33 H Creatinine 0.61 L BUN/Creatinine Ratio Glucose 138 H POC Glucose (mg/dL) Plasma Lactic Acid Jose Antonio Calcium 8.0 L Magnesium AST ALT Alkaline Phosphatase Ammonia C-Reactive Protein Total Protein Albumin Albumin/Globulin Ratio Vitamin B12 Procalcitonin Urine Protein Urine Ketones C. difficile (EIA) Intrp Positive A 09/07/23 09/07/23 09/08/23 05:47 05:47 06:05 WBC 11.75 H RBC Hgb Hct RDW 19.4 H Immature Gran # 0.16 H Neutrophils # 9.29 H Neutrophils # (Manual) Lymphocytes # (Manual) Eosinophils # 0.02 L Basophils # Metamyelocytes # (Man) NRBC/100 WBC Diff 0.02 H Toxic Granulation 2+ A Macrocytosis (manual) ABG pH ABG pCO2 ABG pO2 ABG O2 Saturation Sodium 148 H Potassium Chloride 118 H Carbon Dioxide BUN 28.2 H Creatinine BUN/Creatinine Ratio 40.29 H Glucose 140 H POC Glucose (mg/dL) Plasma Lactic Acid Jose Antonio Calcium 8.0 L Magnesium AST 147 H ALT 86 H Alkaline Phosphatase Ammonia C-Reactive Protein 5.00 H Total Protein 4.2 L Albumin 2.3 L Albumin/Globulin Ratio 1.21 L Vitamin B12 Procalcitonin 0.18 H Urine Protein Urine Ketones C. difficile (EIA) Intrp 09/08/23 09/09/23 09/09/23 06:05 05:53 05:53 WBC 14.51 H RBC 4.38 L Hgb Hct RDW 19.5 H Immature Gran # 0.19 H Neutrophils # 12.09 H Neutrophils # (Manual) Lymphocytes # (Manual) Eosinophils # 0.02 L Basophils # 0.11 H Metamyelocytes # (Man) NRBC/100 WBC Diff Toxic Granulation Macrocytosis (manual) ABG pH ABG pCO2 ABG pO2 ABG O2 Saturation Sodium 146 H 146 H Potassium Chloride 116 H 117 H Carbon Dioxide 21.5 L 20.9 L BUN 27.4 H 28.1 H Creatinine BUN/Creatinine Ratio 39.14 H 46.83 H Glucose 146 H 139 H POC Glucose (mg/dL) Plasma Lactic Acid Jose Antonio Calcium 7.8 L 7.7 L Magnesium AST 179 H 258 H ALT 111 H 153 H Alkaline Phosphatase 127 H 137 H Ammonia C-Reactive Protein 7.20 H Total Protein 4.1 L 4.2 L Albumin 2.2 L 2.1 L Albumin/Globulin Ratio 1.16 L 1.00 L Vitamin B12 Procalcitonin Urine Protein Urine Ketones C. difficile (EIA) Intrp 09/09/23 09/09/23 09/10/23 17:00 22:59 00:09 WBC RBC Hgb Hct RDW Immature Gran # Neutrophils # Neutrophils # (Manual) Lymphocytes # (Manual) Eosinophils # Basophils # Metamyelocytes # (Man) NRBC/100 WBC Diff Toxic Granulation Macrocytosis (manual) ABG pH 7.52 H ABG pCO2 28 L ABG pO2 52 L* ABG O2 Saturation 90.8 L Sodium Potassium Chloride Carbon Dioxide BUN Creatinine BUN/Creatinine Ratio Glucose POC Glucose (mg/dL) 139 H Plasma Lactic Acid Jose Antonio Calcium Magnesium AST ALT Alkaline Phosphatase Ammonia C-Reactive Protein Total Protein Albumin Albumin/Globulin Ratio Vitamin B12 Procalcitonin Urine Protein Trace H Urine Ketones C. difficile (EIA) Intrp 09/10/23 09/10/23 09/10/23 01:52 01:52 01:52 WBC 15.1 H RBC 4.19 L Hgb Hct RDW 16.6 H Immature Gran # Neutrophils # 13.5 H Neutrophils # (Manual) Lymphocytes # (Manual) Eosinophils # Basophils # Metamyelocytes # (Man) NRBC/100 WBC Diff Toxic Granulation Macrocytosis (manual) ABG pH ABG pCO2 ABG pO2 ABG O2 Saturation Sodium Potassium 3.4 L Chloride 114 H Carbon Dioxide 20 L BUN 34 H Creatinine BUN/Creatinine Ratio Glucose 154 H POC Glucose (mg/dL) Plasma Lactic Acid Jose Antonio Calcium 7.5 L Magnesium AST ALT Alkaline Phosphatase Ammonia 32 H C-Reactive Protein Total Protein Albumin Albumin/Globulin Ratio Vitamin B12 Procalcitonin Urine Protein Urine Ketones C. difficile (EIA) Intrp 09/10/23 09/10/23 09/10/23 06:02 07:35 07:35 WBC 14.24 H RBC 3.97 L Hgb 12.4 L Hct 37.0 L RDW 19.2 H Immature Gran # Neutrophils # Neutrophils # (Manual) Lymphocytes # (Manual) Eosinophils # Basophils # Metamyelocytes # (Man) NRBC/100 WBC Diff Toxic Granulation Macrocytosis (manual) ABG pH ABG pCO2 ABG pO2 ABG O2 Saturation Sodium Potassium Chloride 115 H Carbon Dioxide BUN 37 H Creatinine BUN/Creatinine Ratio Glucose 150 H POC Glucose (mg/dL) 142 H Plasma Lactic Acid Jose Antonio Calcium 7.8 L Magnesium AST 379 H ALT 250 H Alkaline Phosphatase 144 H Ammonia C-Reactive Protein 18.9 H Total Protein 4.8 L Albumin 2.2 L Albumin/Globulin Ratio Vitamin B12 Procalcitonin Urine Protein Urine Ketones C. difficile (EIA) Intrp 09/10/23 09/10/23 07:36 11:30 WBC RBC Hgb Hct RDW Immature Gran # Neutrophils # Neutrophils # (Manual) Lymphocytes # (Manual) Eosinophils # Basophils # Metamyelocytes # (Man) NRBC/100 WBC Diff Toxic Granulation Macrocytosis (manual) ABG pH ABG pCO2 ABG pO2 ABG O2 Saturation Sodium Potassium Chloride Carbon Dioxide BUN Creatinine BUN/Creatinine Ratio Glucose POC Glucose (mg/dL) 137 H Plasma Lactic Acid Jose Antonio Calcium Magnesium AST ALT Alkaline Phosphatase Ammonia C-Reactive Protein Total Protein Albumin Albumin/Globulin Ratio Vitamin B12 Procalcitonin 0.36 H Urine Protein Urine Ketones C. difficile (EIA) Intrp - Diagnostic Findings Chest x-ray: image reviewed Assessment and Plan Assessment: Altered mental status, obtunded, somnolent from local usp suspect secondary to dehydration C. difficile infection following antibiotics for sinus infection at [facility] Urinary tract infection secondary to E. coli, Klebsiella pneumoniae, enterococcus VRE Febrile illness secondary to above Acute hypoxemic respiratory failure secondary to fluid volume overload and bilateral pleural effusions Failure to thrive requiring nasogastric tube with tube feedings History of dementia Sherry: The patient was seen and evaluated Chest x-ray, labs and medications reviewed Continue with nonrebreather mask Continue antibiotics for now DO NOT RESUSCITATE/DO NOT INTUBATE CODE STATUS Would recommend hospice/comfort care I have personally seen and examined the patient, performed the documentation and the assessment and plan as written. Number of minutes spent on the visit: 20.
--- NOTE | 2023-09-10 17:04 | CDI ---
Documentation Clarification Form Date: 09/10/2023 04:48:30 PM From: Nida Montes RN CCDS Phone: [phone] Admit Date: 09/04/2023 05:07:00 PM Patient Name: Davin Simons Visit Number: [id number] Discharge Date: ATTENTION: The Clinical Documentation Specialists (CDI) and [facility] Coding Staff appreciate your assistance in clarifying documentation. Please respond to the clarification below the line at the bottom and electronically sign. The CDI & [facility] Coding staff will review the response and follow-up if needed. Please note: Queries are made part of the Legal Health Record. If you have any questions, please contact the author of this message via ITS. Dr. Radha Knott buttock stage 1 pressure ulcer is documented by nursing in the nursing pressure ulcer assessment, 09/04. Based on this information and the findings below, is there an additional diagnosis that is clinically appropriate for this patient? History/Risk Factors: 83-year-old male [facility] with generalized weakness, acute mental status changes: somnolent and non verbal. Medical History: Parkinson, dementia, anxiety and depression. H&P, 09/03. Clinical Indicators: Location: Buttock Wound description: Excoriation. Type one, no skin loss Treatment: Zinc oxide paste applied to buttock BID PRN, Turn 2QH, Absorbant under pad, Hourly check of absorbent pad, Pillow between knees, Pillow elevating arms, Pillow elevating heels. Is there an additional diagnosis that is clinically appropriate for this patient? [ x ] Buttock Pressure Ulcer Stage 1 [ ] Other condition, please specify [ ] Unable to determine Clinical Definitions: Stage 1 Pressure Ulcer: intact skin, non-blanching redness of local area Stage 2 Pressure Ulcer: Partial thickness, loss of dermis, pink wound bed Stage 3 Pressure Ulcer: Full thickness tissue loss Stage 4 Pressure Ulcer: Full thickness tissue loss with exposed bone, tendon, or muscle. Unstageable pressure ulcer: Full thickness tissue loss in which the base of the ulcer is covered by slough (yellow, gutierrez, pittman, green or brown) and/or eschar (gutierrez, brown or black) in the wound bed. (Template Last Revised: October 2020) MTDD
--- NOTE | 2023-09-10 17:31 | CDI ---
Documentation Clarification Form Date: 09/10/2023 05:05:42 PM From: Nida Montes RN CCDS Phone: [phone] Admit Date: 09/04/2023 05:07:00 PM Patient Name: Davin Simons Visit Number: [id number] Discharge Date: ATTENTION: The Clinical Documentation Specialists (CDI) and [facility] Coding Staff appreciate your assistance in clarifying documentation. Please respond to the clarification below the line at the bottom and electronically sign. The CDI & [facility] Coding staff will review the response and follow-up if needed. Please note: Queries are made part of the Legal Health Record. If you have any questions, please contact the author of this message via ITS. Dr. Radha Collins Obtunded, frail, cachectic documented in the Pulmonology consult, 09/10. Based on this information and the findings below, is there an additional diagnosis that is clinically appropriate for this patient? History/Risk Factors: 83-year-old male presented to the ED from assisted with generalized weakness, acute mental status changes: somnolent and nonverbal. Medical History: Parkinson, dementia, anxiety and depression. H&P, 09/03. Clinical Indicators: RD Consult Assessment: Current BMI: 11.2kg Hgt 5ft 10in Wgt 35.5kg Nutrition intake: poor; 0% consumed; NPO Physical findings: Stage 1 pressure injury to buttock. Estimated Nutritional Needs: Energy needs KCAL 1033-7535; 1.2 1.3 AF; 25-30 25-30 kcal / kg = [id number] Estimated protein needs: Protien range: 1.25 1.5 grams/kg; Estimated 99-105 grams/day. Nutrition Intake: Increased nutrient needs: Protein, Vitamin C and Zinc Related to: Increased metabolic demand to promote wound healing As evidenced by: Stage 1 pressure injury to buttock. Treatment: Started on 09/05 Tube feeding Vital AF 1.2 @ 69ml/hr, Monitoring tube feed infusion, Flushing Q4H with 30ml water, Registered dietitian consult above. Is there an additional diagnosis that is clinically appropriate for this patient? [ x ] Severe Protein-Calorie Malnutrition [ ] Other condition, please specify [ ] Unable to Determine In responding to this query, please exercise your independent professional judgment. The [facility] Coding Staff and Clinical Documentation Specialists appreciate your assistance in clarifying documentation, maintaining compliance with coding guidelines, accurately documenting patients condition and capturing severity of illness. The fact that a question is asked does not imply that any particular answer is desired or expected. Communication forms are a method of clarifying documentation and are made part of the Legal Health Record. Thank you in advance for your clarification. Last Reviewed February 2023 Reference: Using the ASPEN Guidelines, Undernutrition (Malnutrition) is characterized by at least two of the following six findings. The severity can be determined based on the criteria listed below. Malnutrition Characteristics for Moderate and Severe Malnutrition Type of Malnutrition Acute Illness or Injury Chronic Illness Degree of Malnutrition Non-severe (moderate) Malnutrition Severe Malnutrition Non-severe (moderate) Malnutrition Severe Malnutrition Energy Intake <75% for >7 days = 50% for = 5 days <75% for = 1 month =75% for = 1 month Weight Loss 1-2% in one week, 5% in 1 month, 7.5% in 3 months 2% in one week, >5% in 1 month, >7.5% in 3 months 5% in one month, 7.5% in 3 months, 10% in 6 months, 20% in 1 year >5% in one month, >7.5% in 3 months, >10% in 6 months, >20% in 1 year Body Fat Wasting Mild Moderate Mild Severe Muscle Wasting Mild Moderate Mild Severe Presence of Edema Mild Moderate to Severe Mild Severe Flare Breaker Strength Not applicable Measurably Reduced Not applicable Measurably Reduced Source: Kyle ChangV, Jazmín P, Roque G, et al. Consensus statement: Academy of Nutrition and Dietetics and [place] Society for Parenteral and Enteral Nutrition: characteristics recommended for the identification and documentation of adult malnutrition (undernutrition).JPEN J Parenter Enteral Nutr. 2012;36(3):275-283. (Template Last Revised: February 2023) EARL
--- NOTE | 2023-09-10 17:52 | P.PN ---
Subjective Progress Note Date: 09/10/23 Davin Simons, is an 83-year-old male patient, resident of a senior care, who presented to [facility] emergency room, with a chief complaint of generalized weakness and acute mental status changes, patient was noticed to be somnolent, and nonverbal at the senior care, he was sent to emergency room for evaluation. He was evaluated in the emergency room vital examination on presentation revealed a temperature of 97.8 pulse 72 respiration 20 blood pressure 100/64 pulse ox 95% on room air Laboratory data revealed a white blood count of 12.0 hemoglobin 15.6 platelet count 234 sodium 140 potassium 3.9 chloride 110 CO2 20 BUN 52 creatinine 0.73 Testing in the emergency room revealed chest x-ray done in the emergency room revealed lower lung volumes no acute cardiopulmonary disease process and COPD changes, EKG done in the emergency room revealed sinus rhythm with occasional ventricular premature complexes and moderate intraventricular conduction delay, computed tomography scan of the brain revealed no acute intracranial hemorrhage or midline shift. Patient was admitted to medical floor for further evaluation and treatment On 09/04/2023 patient currently resting in bed remains confused with limited responsiveness. Repeat lactic acid 1.8. Sodium increasing to 148. Fluids adjusted to D5 half-normal at 75. Bun 42.2 creatinine 0.8. Per nursing staff patient failed swallow eval will consult speech therapy services to further evaluate. Patient's son at bedside. Requesting a neurology consult for concerns of dementia. Vital signs temp 97.9, heart rate 89, respiratory rate 18, blood pressure 150/75 with pulse ox of 95% on room air On 09/05/2023 patient was seen and examined on the medical floor he is somnolent responsive to stimuli, in no apparent distress, patient is nothing by mouth, IV fluid was increased to 100 mL per hour, family is at the bedside in case was discussed in details with them, at this time they are agreeable for NG tube placement for medication and nutrition, will follow up closely on progress. On 09/06/2023 patient remains somnolent. Patient's son at bedside. NG tube was placed patient started on tube feedings. Discussed with nursing staff to assess for urinary retention and place Barr catheter if needed to assess urinary output. Patient remains on half normal saline. Neurology services following. On 09/07/2023 patient was seen and examined on the medical floor he is somnolent, less responsive today, stools was positive for C. diff, patient is currently receiving vancomycin through NG tube, he is also receiving his Parkinson disease medication and nutrition through NG tube, patient has IV fluid, he has a stool management system, prognosis is guarded, no family members available today. On 09/08/2023 patient was seen and examined on the medical floor, he is somnolent and responsive, in no apparent distress, he has NG tube in, and receiving medication and nutrition, he also has IV fluid, he is still having severe diarrhea, he is maintained on oral vancomycin through his NG tube, Questran was added, today patient has evidence of elevated liver enzymes, Tylenol Aricept and Namenda were held, patient blood pressure is on the low side, he will receive a dose of IV fluid, normal saline, will continue to monitor very closely. Son is at the bedside, different issues regarding his father's health were discussed in details. On 09/09/2023 patient remains on medical floor somnolent. liver enzymes went up again today. Patient remains on by mouth vancomycin infectious disease and neurology services following. Tentative plans for lumbar puncture. Repeat blood culture and lactic acid been ordered we'll also order liver ultrasound due to elevated liver enzymes. Current vital signs temp 97.9, heart rate 108, respiratory rate 18, blood pressure 97/50 On 09/10/2023 patient was seen and examined on the telemetry floor, last night he had episodes of worsening shortness of breath, he received IV Lasix, IV albumin, chest x-ray and ABG were done, 18 was called during the night and patient was transferred to telemetry. Today patient remains somnolent and responsive, he is maintained on oxygen mask. Vital exam reveals a temperature of 101.2 pulse 100 respiration 27 blood pressure 109/59 pulse ox 91% on 15 L nonrebreather mask white blood count is 14.4 hemoglobin 12.4 platelet count 164 AST 379 ALT 2050 alkaline phosphatase 144. Neurology and infectious disease are following, input reviewed. We will add consult for cardiology and pulmonary, prognosis is poor. Family meeting this morning, CODE STATUS was changed to no code. Objective - Vital Signs Vital signs: Vital Signs Temp 101.1 F H 09/10/23 08:15 Pulse 92 09/10/23 08:15 Resp 26 H 09/10/23 08:15 BP 111/62 09/10/23 08:15 Pulse Ox 90 L 09/10/23 08:15 FiO2 Intake & Output 09/09/23 09/10/23 09/10/23 18:59 06:59 18:59 Output Total 410 850 Balance -410 -850 Weight 35.5 kg 35.5 kg Output: Urine 410 850 Other: Voiding Method Diaper Indwelling Catheter Indwelling Catheter External Catheter - Exam In general patient is somnolent and nonverbal in no apparent distress HEENT head normocephalic and atraumatic Neck is supple no JVD no goiter no lymphadenopathy no carotid bruit Chest examination is clear to auscultation no crackles no wheezing Cardiac exam reveals regular heart sounds S1 and S2 no gallops no murmurs Abdomen is soft nontender no organomegaly with normal bowel sounds Extremity exam reveals no edema no cyanosis or clubbing - Labs CBC & Chem 7: 09/10/23 07:35 09/10/23 07:35 Labs: Abnormal Lab Results - Last 24 Hours (Table) 09/09/23 09/09/23 09/10/23 Range/Units 17:00 22:59 00:09 WBC (3.8-10.6) k/uL RBC (4.30-5.90) m/uL Hgb (13.0-17.0) g/dL Hct (39.6-50.0) % RDW (11.5-15.5) % Neutrophils # (1.3-7.7) k/uL ABG pH 7.52 H (7.35-7.45) ABG pCO2 28 L (35-45) mmHg ABG pO2 52 L* (83-108) mmHg ABG O2 Saturation 90.8 L (94-97) % Potassium (3.5-5.1) mmol/L Chloride (98-107) mmol/L Carbon Dioxide (22-30) mmol/L BUN (9-20) mg/dL Glucose (74-99) mg/dL POC Glucose (mg/dL) 139 H (70-110) mg/dL Calcium (8.4-10.2) mg/dL AST (17-59) U/L ALT (4-49) U/L Alkaline Phosphatase (38-126) U/L Ammonia (<30) umol/L C-Reactive Protein (<1.0) mg/dL Total Protein (6.3-8.2) g/dL Albumin (3.5-5.0) g/dL Procalcitonin (0.02-0.09) ng/mL Urine Protein Trace H (Negative) 09/10/23 09/10/23 09/10/23 Range/Units 01:52 01:52 01:52 WBC 15.1 H (3.8-10.6) k/uL RBC 4.19 L (4.30-5.90) m/uL Hgb (13.0-17.0) g/dL Hct (39.6-50.0) % RDW 16.6 H (11.5-15.5) % Neutrophils # 13.5 H (1.3-7.7) k/uL ABG pH (7.35-7.45) ABG pCO2 (35-45) mmHg ABG pO2 (83-108) mmHg ABG O2 Saturation (94-97) % Potassium 3.4 L (3.5-5.1) mmol/L Chloride 114 H (98-107) mmol/L Carbon Dioxide 20 L (22-30) mmol/L BUN 34 H (9-20) mg/dL Glucose 154 H (74-99) mg/dL POC Glucose (mg/dL) (70-110) mg/dL Calcium 7.5 L (8.4-10.2) mg/dL AST (17-59) U/L ALT (4-49) U/L Alkaline Phosphatase (38-126) U/L Ammonia 32 H (<30) umol/L C-Reactive Protein (<1.0) mg/dL Total Protein (6.3-8.2) g/dL Albumin (3.5-5.0) g/dL Procalcitonin (0.02-0.09) ng/mL Urine Protein (Negative) 09/10/23 09/10/23 09/10/23 Range/Units 06:02 07:35 07:35 WBC 14.24 H (3.8-10.6) k/uL RBC 3.97 L (4.30-5.90) m/uL Hgb 12.4 L (13.0-17.0) g/dL Hct 37.0 L (39.6-50.0) % RDW 19.2 H (11.5-15.5) % Neutrophils # (1.3-7.7) k/uL ABG pH (7.35-7.45) ABG pCO2 (35-45) mmHg ABG pO2 (83-108) mmHg ABG O2 Saturation (94-97) % Potassium (3.5-5.1) mmol/L Chloride 115 H (98-107) mmol/L Carbon Dioxide (22-30) mmol/L BUN 37 H (9-20) mg/dL Glucose 150 H (74-99) mg/dL POC Glucose (mg/dL) 142 H (70-110) mg/dL Calcium 7.8 L (8.4-10.2) mg/dL AST 379 H (17-59) U/L ALT 250 H (4-49) U/L Alkaline Phosphatase 144 H (38-126) U/L Ammonia (<30) umol/L C-Reactive Protein 18.9 H (<1.0) mg/dL Total Protein 4.8 L (6.3-8.2) g/dL Albumin 2.2 L (3.5-5.0) g/dL Procalcitonin (0.02-0.09) ng/mL Urine Protein (Negative) 09/10/23 Range/Units 07:36 WBC (3.8-10.6) k/uL RBC (4.30-5.90) m/uL Hgb (13.0-17.0) g/dL Hct (39.6-50.0) % RDW (11.5-15.5) % Neutrophils # (1.3-7.7) k/uL ABG pH (7.35-7.45) ABG pCO2 (35-45) mmHg ABG pO2 (83-108) mmHg ABG O2 Saturation (94-97) % Potassium (3.5-5.1) mmol/L Chloride (98-107) mmol/L Carbon Dioxide (22-30) mmol/L BUN (9-20) mg/dL Glucose (74-99) mg/dL POC Glucose (mg/dL) (70-110) mg/dL Calcium (8.4-10.2) mg/dL AST (17-59) U/L ALT (4-49) U/L Alkaline Phosphatase (38-126) U/L Ammonia (<30) umol/L C-Reactive Protein (<1.0) mg/dL Total Protein (6.3-8.2) g/dL Albumin (3.5-5.0) g/dL Procalcitonin 0.36 H (0.02-0.09) ng/mL Urine Protein (Negative) Microbiology - Last 24 Hours (Table) 09/06/23 12:58 Blood Culture - Preliminary Blood Assessment and Plan Plan: Acute mental status changes Dehydration with acute kidney injury C. diff colitis Underlying history of Parkinson disease Underlying history of peptic ulcer disease Underlying history of hypertension Underlying history of dementia Underlying history of anemia Dysphasia. NG tube has been placed patient started on tube feedings Elevated liver enzymes. Liver ultrasound ordered At this time patient is admitted to medical floor He was started on gentle IV hydration Infectious disease service is following Neurology services consulted Patient started on by mouth vancomycin Blood culture ordered Home medications reviewed and reordered For DVT prophylaxis subcu Lovenox Will recheck labs in a.m.
--- NOTE | 2023-09-10 17:55 | P.PN ---
Progress Note - Text Progress Note Date: 09/10/23 Records of family meeting: Meeting held on [address] [facility] . Present is myself, patient's , patient's 2 sons and 1 daughter Patient condition, diagnoses, lab results and testing results were reviewed with family Different CODE STATUS was reviewed with family in details Guarded prognosis was discussed At this time CODE STATUS will be changed to no code. Further change in the next few days dependence on clinical progress.
[2023-09-10 18:34] LABS: Glucose,Whole Blood 154 mg/dL (70-110)
[2023-09-10] MEDS ORDERED: ATROPINE OPHTH SOLN 1% 5ML BTL SUBLINGUAL PRN (20:42)
[2023-09-10] MEDS: KETOTIFEN 0.025% OPHTH DROPS 5 ML BTL BOTH EYES SCH (20:48)
[2023-09-10] MEDS: [UNRECOGNIZED DRUG - OTHER] BOTH EYES SCH (20:49)
[2023-09-10] MEDS: PANTOPRAZOLE 40 MG TABLET PO SCH (20:49)
[2023-09-10] MEDS: MORPHINE SULFATE 2 MG/ML SYRINGE IV PRN (20:54)
[2023-09-10] MEDS ORDERED: SCOPOLAMINE 1 MG/72 HR PATCH TRANSDERM SCH (21:00)
[2023-09-11] MEDS: SODIUM CHLORIDE 0.45% 1,000 ML IV SCH (02:52)
--- NOTE | 2023-09-11 05:31 | P.PN ---
Subjective Progress Note Date: 09/10/23 08/10/2023: Patient was seen for follow-up. Patient's other daughter, and patient's were both present today. Patient's family mentions that he has only mild dementia, although patient is on Aricept and Namenda. He recognizes all children and grandchildren. Patient's daughter mentions that he can walk with a walker, although he uses wheelchair as well. Patient clinically appears to be getting worse. He is more obtunded, requiring high FiO2 with face mask. 08/09/2023: Patient was seen for a follow-up. Patient clinically not improved. I spoke to patient's and daughter personally. They informed the patient has been wheelchair bound for last 2 years. This is related to combination of his back issues, Parkinson's and dementia. Patient does have dementia as well, however he was conversational before he got sick. Now he cannot hold any conversation. 08/08/2023: Patient was seen for a follow-up. Patient essentially unchanged. 08/07/2023: Patient initially seen by Dr. Garland Haro. Please refer to his note for details. Patient is a 83-year-old male with Parkinson's who has recent acute sinusitis and since then has confusion. Patient could not get MRI because of head position so needs to be ordered once condition improves. EEG was negative for seizures. Dr. Haro ordered repeat CT head. Some of the work-up during this hospital visit consisted of: Patient is afebrile. Initial wbc is 12K and repeat is 10K Sodium is 140--151, creatinine is 0.73. BUN is 52, plasma lactate vein is 2.1. Calcium is 8.2, magnesium 2.6 AST ALT is within normal limits Vitamin B12: 2537 Serum folate 24.80 Ammonia 9 TSH: 0.514 u/a seems negative for UTI SARS-COV2, Influenza A/B and RSV PCR is not detected. CT head is reported as no acute intracranial hemorrhage or midline shift. There is mild to moderate diffuse-age related cerebral atrophy and chronic small vessel ischemic change redemostrated. No significant change from prior. I personally reviewed the CT of the head and there is no acute subacute ischemia. There is no mass effect. There is no acute or subacute bleed. Routine EEG: As abnormal. The background slowing is suggestive of moderate encephalopathy. Otherwise there is no focal slowing, epileptiform discharges or seizure on the EEG. Objective - Vital Signs Vital signs: Vital Signs Temp 101.2 F H 09/10/23 12:00 Pulse 100 09/10/23 12:00 Resp 27 H 09/10/23 12:00 BP 109/59 09/10/23 12:00 Pulse Ox 91 L 09/10/23 12:00 FiO2 Intake & Output 09/09/23 09/10/23 09/10/23 18:59 06:59 18:59 Output Total 410 850 Balance -410 -850 Weight 35.5 kg 35.5 kg Output: Urine 410 850 Other: Voiding Method Diaper Indwelling Catheter Indwelling Catheter External Catheter - Exam Patient is an elderly male, who is laying in the bed, obtunded. His mouth is open. Patient appears to be tachypneic, and slight respiratory distress. Patient has oxygen by Ventimask. Patient does not respond to calling his name. He moans a little. He appears slightly warm. Patient did not cooperate with examination. - Labs CBC & Chem 7: 09/10/23 07:35 09/10/23 07:35 Labs: Abnormal Lab Results - Last 24 Hours (Table) 09/09/23 09/09/23 09/10/23 Range/Units 17:00 22:59 00:09 WBC (3.8-10.6) k/uL RBC (4.30-5.90) m/uL Hgb (13.0-17.0) g/dL Hct (39.6-50.0) % RDW (11.5-15.5) % Neutrophils # (1.3-7.7) k/uL ABG pH 7.52 H (7.35-7.45) ABG pCO2 28 L (35-45) mmHg ABG pO2 52 L* (83-108) mmHg ABG O2 Saturation 90.8 L (94-97) % Potassium (3.5-5.1) mmol/L Chloride (98-107) mmol/L Carbon Dioxide (22-30) mmol/L BUN (9-20) mg/dL Glucose (74-99) mg/dL POC Glucose (mg/dL) 139 H (70-110) mg/dL Calcium (8.4-10.2) mg/dL AST (17-59) U/L ALT (4-49) U/L Alkaline Phosphatase (38-126) U/L Ammonia (<30) umol/L C-Reactive Protein (<1.0) mg/dL Total Protein (6.3-8.2) g/dL Albumin (3.5-5.0) g/dL Procalcitonin (0.02-0.09) ng/mL Urine Protein Trace H (Negative) 09/10/23 09/10/23 09/10/23 Range/Units 01:52 01:52 01:52 WBC 15.1 H (3.8-10.6) k/uL RBC 4.19 L (4.30-5.90) m/uL Hgb (13.0-17.0) g/dL Hct (39.6-50.0) % RDW 16.6 H (11.5-15.5) % Neutrophils # 13.5 H (1.3-7.7) k/uL ABG pH (7.35-7.45) ABG pCO2 (35-45) mmHg ABG pO2 (83-108) mmHg ABG O2 Saturation (94-97) % Potassium 3.4 L (3.5-5.1) mmol/L Chloride 114 H (98-107) mmol/L Carbon Dioxide 20 L (22-30) mmol/L BUN 34 H (9-20) mg/dL Glucose 154 H (74-99) mg/dL POC Glucose (mg/dL) (70-110) mg/dL Calcium 7.5 L (8.4-10.2) mg/dL AST (17-59) U/L ALT (4-49) U/L Alkaline Phosphatase (38-126) U/L Ammonia 32 H (<30) umol/L C-Reactive Protein (<1.0) mg/dL Total Protein (6.3-8.2) g/dL Albumin (3.5-5.0) g/dL Procalcitonin (0.02-0.09) ng/mL Urine Protein (Negative) 09/10/23 09/10/23 09/10/23 Range/Units 06:02 07:35 07:35 WBC 14.24 H (3.8-10.6) k/uL RBC 3.97 L (4.30-5.90) m/uL Hgb 12.4 L (13.0-17.0) g/dL Hct 37.0 L (39.6-50.0) % RDW 19.2 H (11.5-15.5) % Neutrophils # (1.3-7.7) k/uL ABG pH (7.35-7.45) ABG pCO2 (35-45) mmHg ABG pO2 (83-108) mmHg ABG O2 Saturation (94-97) % Potassium (3.5-5.1) mmol/L Chloride 115 H (98-107) mmol/L Carbon Dioxide (22-30) mmol/L BUN 37 H (9-20) mg/dL Glucose 150 H (74-99) mg/dL POC Glucose (mg/dL) 142 H (70-110) mg/dL Calcium 7.8 L (8.4-10.2) mg/dL AST 379 H (17-59) U/L ALT 250 H (4-49) U/L Alkaline Phosphatase 144 H (38-126) U/L Ammonia (<30) umol/L C-Reactive Protein 18.9 H (<1.0) mg/dL Total Protein 4.8 L (6.3-8.2) g/dL Albumin 2.2 L (3.5-5.0) g/dL Procalcitonin (0.02-0.09) ng/mL Urine Protein (Negative) 09/10/23 09/10/23 Range/Units 07:36 11:30 WBC (3.8-10.6) k/uL RBC (4.30-5.90) m/uL Hgb (13.0-17.0) g/dL Hct (39.6-50.0) % RDW (11.5-15.5) % Neutrophils # (1.3-7.7) k/uL ABG pH (7.35-7.45) ABG pCO2 (35-45) mmHg ABG pO2 (83-108) mmHg ABG O2 Saturation (94-97) % Potassium (3.5-5.1) mmol/L Chloride (98-107) mmol/L Carbon Dioxide (22-30) mmol/L BUN (9-20) mg/dL Glucose (74-99) mg/dL POC Glucose (mg/dL) 137 H (70-110) mg/dL Calcium (8.4-10.2) mg/dL AST (17-59) U/L ALT (4-49) U/L Alkaline Phosphatase (38-126) U/L Ammonia (<30) umol/L C-Reactive Protein (<1.0) mg/dL Total Protein (6.3-8.2) g/dL Albumin (3.5-5.0) g/dL Procalcitonin 0.36 H (0.02-0.09) ng/mL Urine Protein (Negative) Microbiology - Last 24 Hours (Table) 09/06/23 12:58 Blood Culture - Preliminary Blood Assessment and Plan Assessment: This is an 83-year-old gentleman with history of Parkinson's disease, dementia who presents because of generalized weakness and confusion. Per the nurse was reported to her that this has been going on for the last 1 -2 weeks and per family members had recent sinus infection and was given abx then became confused. Metabolic Encephalopathy which is worsening. High temperature, leukocytosis, probable aspiration pneumonia. Hypernatremia, improved. Urine cultures growing E. coli, klebsiella pneumonia, and enterococcus faecium VRE. Discussed with infectious disease, appears contamination, as his UA is completely benign. Acute kidney injury, resolved Elevated hepatic enzymes, worsening C. difficile colitis Hypermagnesemia mild. Parkinson's disease for about 6 months Demenia for past couple years but is able to feed self, communicate and somewhat manages to walk with walker, although has been using wheelchair for last 2 years. 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 Elevated plasma lactic acid, resolved. Plan: Patient continues to be severely encephalopathic. Patient probably has aspiration pneumonia. No evidence of UTI as per ID, as urinalysis is completely benign. The positive cultures is likely from contamination. Patient does have C. difficile colitis and toxic metabolic encephalopathy. Lumbar puncture was attempted yesterday, but was technically difficult due to probable spinal curvature. Lumbar puncture by interventional radiology was recommended, but they are not available. Discussed with the family, they want to hold off on lumbar puncture and just see if patient responds to a new antibiotic Zosyn. Patient started on Zosyn for possible aspiration pneumonia, and also on vancomycin orally for C. difficile colitis. If no improvement in the next 24 hours, family is considering hospice care. Per Dr. Haro report, MRI the brain could not be done since per [employer] technician team "Could not connect coil over pt head due to patient anatomy. Pt kyphotic". Once his is more awake and responsive will reorder the MRI and attempt again to rule out any stroke or other central cause. Patient is resumed on his home medication of Sinemet 25-100mg 1 tab bid via NG tube and his no improvement in his neurological condition. Patient is on home medication for Aricept and Namenda We'll defer the rest of the medical management to the primary team. Patient is a no CODE STATUS. Discussed with family members, and nursing staff in detail.
[2023-09-11] MEDS: PIPERACILLIN-TAZOBACTAM 3.375 GM in SODIUM CHLORIDE 0.9% 100 ML IVPB SCH ×2 (05:35→12:08)
[2023-09-11] MEDS: IBUPROFEN 600 MG TAB PO PRN (05:43)
[2023-09-11] MEDS: MORPHINE SULFATE 2 MG/ML SYRINGE IV PRN (05:43)
[2023-09-11 08:19] LABS: Anisocytosis Slight; Basophils % (A) 0 %; Eosinophils % (A) 0 %; HCT 36.4 % (39.0-53.0); HGB 11.9 gm/dL (13.0-17.5); Hypochromasia Slight; Lymphocytes # (A) 0.9 k/uL (1.0-4.8); Lymphocytes % (A) 9 %; MCH 32.2 pg (25.0-35.0); MCHC 32.6 g/dL (31.0-37.0); MCV 98.6 fL (80.0-100.0); Macrocytosis Slight; Mean Platelet Volume 9.7; Monocytes # (A) 0.3 k/uL (0-1.0); Monocytes % (A) 3 %; Neutrophils # (A) 9.4 k/uL (1.3-7.7); Neutrophils % (A) 88 %; Platelet Count 149 k/uL (150-450); RBC 3.69 m/uL (4.30-5.90); RDW 17.3 % (11.5-15.5); WBC 10.6 k/uL (3.8-10.6)
[2023-09-11 08:42] LABS: ALT 331 U/L (4-49); AST 596 U/L (17-59); African American GFR (CKD) >90 (>60 ml/min/1.73 sqM); Alkaline Phosphatase 150 U/L (38-126); Anion Gap 9 mmol/L; Blood Urea Nitrogen 44 mg/dL (9-20); Calcium 8.2 mg/dL (8.4-10.2); Carbon Dioxide 24 mmol/L (22-30); Chloride 115 mmol/L (98-107); Glucose 137 mg/dL (74-99); Non-African American GFR(CKD) 83 (>60 ml/min/1.73 sqM); Potassium 4.1 mmol/L (3.5-5.1); Sodium 148 mmol/L (137-145); Total Protein 4.6 g/dL (6.3-8.2)
[2023-09-11] MEDS: MULTIVITAMINS, THERA 1 EACH TAB PO SCH (08:47)
[2023-09-11] MEDS: SUCRALFATE 1 GM TAB PO SCH ×2 (08:47→12:08)
[2023-09-11] MEDS: CARBIDOPA-LEVODOPA 25-100 MG 1 EACH TAB PO SCH ×2 (08:47→12:08)
[2023-09-11] MEDS: ASPIRIN 81 MG PO SCH (08:47)
[2023-09-11] MEDS: LACTOBACILLUS ACIDOPHILUS/PECT 1 EACH CAPSULE PO SCH (08:47)
[2023-09-11] MEDS: polyethylene glycoL 3350 17 GM POWD.PACK PO SCH (08:47)
[2023-09-11] MEDS: FERROUS SULFATE 325 MG TAB PO SCH (08:47)
[2023-09-11] MEDS: ENOXAPARIN 40 MG/0.4 ML SYRINGE SQ SCH (08:48)
[2023-09-11] MEDS: CHOLESTYRAMINE (WITH SUGAR) 4 GM PACKET PO SCH (08:48)
[2023-09-11] MEDS: VANCOMYCIN ORAL SOLUTION 250 MG/5 ML BOTTLE PO SCH ×2 (09:13→12:08)
[2023-09-11 09:51] VITALS: BP 118/50; PULSE 105; RESP 29; TEMP 101
--- NOTE | 2023-09-11 10:28 | P.PN ---
Subjective Progress Note Date: 09/11/23 Davin Simons, is an 83-year-old male patient, resident of a [facility], who presented to [facility] emergency room, with a chief complaint of generalized weakness and acute mental status changes, patient was noticed to be somnolent, and nonverbal at the [facility], he was sent to emergency room for evaluation. He was evaluated in the emergency room vital examination on presentation revealed a temperature of 97.8 pulse 72 respiration 20 blood pressure 100/64 pulse ox 95% on room air Laboratory data revealed a white blood count of 12.0 hemoglobin 15.6 platelet count 234 sodium 140 potassium 3.9 chloride 110 CO2 20 BUN 52 creatinine 0.73 Testing in the emergency room revealed chest x-ray done in the emergency room revealed lower lung volumes no acute cardiopulmonary disease process and COPD changes, EKG done in the emergency room revealed sinus rhythm with occasional ventricular premature complexes and moderate intraventricular conduction delay, computed tomography scan of the brain revealed no acute intracranial hemorrhage or midline shift. Patient was admitted to medical floor for further evaluation and treatment On 09/04/2023 patient currently resting in bed remains confused with limited responsiveness. Repeat lactic acid 1.8. Sodium increasing to 148. Fluids adjusted to D5 half-normal at 75. Bun 42.2 creatinine 0.8. Per nursing staff patient failed swallow eval will consult speech therapy services to further evaluate. Patient's son at bedside. Requesting a neurology consult for concerns of dementia. Vital signs temp 97.9, heart rate 89, respiratory rate 18, blood pressure 150/75 with pulse ox of 95% on room air On 09/05/2023 patient was seen and examined on the medical floor he is somnolent responsive to stimuli, in no apparent distress, patient is nothing by mouth, IV fluid was increased to 100 mL per hour, family is at the bedside in case was discussed in details with them, at this time they are agreeable for NG tube placement for medication and nutrition, will follow up closely on progress. On 09/06/2023 patient remains somnolent. Patient's son at bedside. NG tube was placed patient started on tube feedings. Discussed with nursing staff to assess for urinary retention and place Barr catheter if needed to assess urinary output. Patient remains on half normal saline. Neurology services following. On 09/07/2023 patient was seen and examined on the medical floor he is somnolent, less responsive today, stools was positive for C. diff, patient is currently receiving vancomycin through NG tube, he is also receiving his Parkinson disease medication and nutrition through NG tube, patient has IV fluid, he has a stool management system, prognosis is guarded, no family members available today. On 09/08/2023 patient was seen and examined on the medical floor, he is somnolent and responsive, in no apparent distress, he has NG tube in, and receiving medication and nutrition, he also has IV fluid, he is still having severe diarrhea, he is maintained on oral vancomycin through his NG tube, Questran was added, today patient has evidence of elevated liver enzymes, Tylenol Aricept and Namenda were held, patient blood pressure is on the low side, he will receive a dose of IV fluid, normal saline, will continue to monitor very closely. Son is at the bedside, different issues regarding his father's health were discussed in details. On 09/09/2023 patient remains on medical floor somnolent. liver enzymes went up again today. Patient remains on by mouth vancomycin infectious disease and neurology services following. Tentative plans for lumbar puncture. Repeat blood culture and lactic acid been ordered we'll also order liver ultrasound due to elevated liver enzymes. Current vital signs temp 97.9, heart rate 108, respiratory rate 18, blood pressure 97/50 On 09/10/2023 patient was seen and examined on the telemetry floor, last night he had episodes of worsening shortness of breath, he received IV Lasix, IV albumin, chest x-ray and ABG were done, 18 was called during the night and patient was transferred to telemetry. Today patient remains somnolent and responsive, he is maintained on oxygen mask. Vital exam reveals a temperature of 101.2 pulse 100 respiration 27 blood pressure 109/59 pulse ox 91% on 15 L nonrebreather mask white blood count is 14.4 hemoglobin 12.4 platelet count 164 AST 379 ALT 2050 alkaline phosphatase 144. Neurology and infectious disease are following, input reviewed. We will add consult for cardiology and pulmonary, prognosis is poor. Family meeting this morning, CODE STATUS was changed to no code. On 09/11/2022 for patient continued to decline currently on Ventimask. Family at bedside discussion was held requesting hospice consult at this time. Current vital signs temp 101.2, heart 106, respiratory rate 28, blood pressure 133/71 with pulse ox of 90% on 15 L. Patient remains unresponsive Objective - Vital Signs Vital signs: Vital Signs Temp 101 F H 09/11/23 08:40 Pulse 105 H 09/11/23 08:40 Resp 29 H 09/11/23 08:40 BP 118/50 09/11/23 08:40 Pulse Ox 90 L 09/11/23 08:40 FiO2 Intake & Output 09/10/23 09/11/23 09/11/23 18:59 06:59 18:59 Output Total 1400 700 Balance -1400 -700 Output: Urine 1400 700 Other: Voiding Method Indwelling Catheter Indwelling Catheter Indwelling Catheter - Exam In general patient is somnolent and nonverbal in no apparent distress HEENT head normocephalic and atraumatic Neck is supple no JVD no goiter no lymphadenopathy no carotid bruit Chest examination is clear to auscultation no crackles no wheezing Cardiac exam reveals regular heart sounds S1 and S2 no gallops no murmurs Abdomen is soft nontender no organomegaly with normal bowel sounds Extremity exam reveals no edema no cyanosis or clubbing - Labs CBC & Chem 7: 09/11/23 07:04 09/11/23 07:04 Labs: Abnormal Lab Results - Last 24 Hours (Table) 09/10/23 09/10/23 09/10/23 Range/Units 07:35 07:36 11:30 WBC 14.24 H (4.50-10.00) X 10*3/uL RBC 3.97 L (4.40-5.60) X 10*6/uL Hgb 12.4 L (13.0-17.0) g/dL Hct 37.0 L (39.6-50.0) % RDW 19.2 H (11.5-14.5) % Plt Count (150-450) k/uL Neutrophils # (1.3-7.7) k/uL Lymphocytes # (1.0-4.8) k/uL Sodium (137-145) mmol/L Chloride (98-107) mmol/L BUN (9-20) mg/dL Glucose (74-99) mg/dL POC Glucose (mg/dL) 137 H (70-110) mg/dL Calcium (8.4-10.2) mg/dL AST (17-59) U/L ALT (4-49) U/L Alkaline Phosphatase (38-126) U/L Total Protein (6.3-8.2) g/dL Albumin (3.5-5.0) g/dL Procalcitonin 0.36 H (0.02-0.09) ng/mL 09/10/23 09/11/23 09/11/23 Range/Units 18:32 07:04 07:04 WBC (4.50-10.00) X 10*3/uL RBC 3.69 L (4.40-5.60) X 10*6/uL Hgb 11.9 L (13.0-17.0) g/dL Hct 36.4 L (39.6-50.0) % RDW 17.3 H (11.5-14.5) % Plt Count 149 L (150-450) k/uL Neutrophils # 9.4 H (1.3-7.7) k/uL Lymphocytes # 0.9 L (1.0-4.8) k/uL Sodium 148 H (137-145) mmol/L Chloride 115 H (98-107) mmol/L BUN 44 H (9-20) mg/dL Glucose 137 H (74-99) mg/dL POC Glucose (mg/dL) 154 H (70-110) mg/dL Calcium 8.2 L (8.4-10.2) mg/dL AST 596 H (17-59) U/L ALT 331 H (4-49) U/L Alkaline Phosphatase 150 H (38-126) U/L Total Protein 4.6 L (6.3-8.2) g/dL Albumin 2.0 L (3.5-5.0) g/dL Procalcitonin (0.02-0.09) ng/mL Microbiology - Last 24 Hours (Table) 09/09/23 12:23 Blood Culture - Preliminary Blood Assessment and Plan Plan: Acute mental status changes Dehydration with acute kidney injury C. diff colitis Underlying history of Parkinson disease Underlying history of peptic ulcer disease Underlying history of hypertension Underlying history of dementia Underlying history of anemia Dysphasia. NG tube has been placed patient started on tube feedings Elevated liver enzymes. Liver ultrasound ordered At this time patient is admitted to medical floor He was started on gentle IV hydration Infectious disease service is following Neurology services consulted Patient started on by mouth vancomycin Blood culture ordered Home medications reviewed and reordered For DVT prophylaxis subcu Lovenox Will recheck labs in a.m. Hospice consult ordered per family request
--- NOTE | 2023-09-11 11:32 | P.PN ---
Subjective Progress Note Date: 09/11/23 Principal diagnosis: Respiratory failure. This is an 83-year-old male patient who resides at [facility] [place] the [place] and had recently been on antibiotics for a sinus infection and then developed C. difficile toxins. He developed altered mental status more so than his baseline and was brought here to the emergency room for the same. He has been here since 09/03/2023. Her consulted today because the patient has increased work of breathing. He is now on a nonrebreather mask to maintain O2 saturations 90-91%. He has normal sitting at 50 MLS per hour. He's been nourished via an nasogastric tube with vital 1.5 at 65 ML's per hour. Most recent chest x-ray reveals cardiomegaly, pulmonary vascular congestion and bilateral pleural effusions. Urine culture is positive for E. coli, Klebsiella pneumoniae and enterococcus faecium VRE. Blood culture revealed no growth. Count 14.2. Hemoglobin 12.4. Platelets 164. Sodium 145. Potassium 3.5. Bicarb 23. BUN 37. Creatinine 0.74. Glucose 150. AST 379. ALT 250. Alk phos 144. Pro- calcitonin 0.36. He is currently on antibiotics in the form of oral vancomycin, Zosyn. Lovenox for DVT prophylaxis. He is seen today in consultation on the selective care unit. He is laying in bed. On a nonrebreather mask. Rapid res pirations. Temperature 101.2. Unresponsive to verbal or deep painful stimuli. His and daughter at the bedside. Progress note dated 09/11/2023. The patient is seen today in room 355. He was seen yesterday in consultation. Please see my note above. The patient's overall situation is poor. He continues on a nonrebreather mass. He's getting half-normal saline at 100 mL an hour. He is currently on Zosyn IV, and vancomycin orally for C. difficile colitis. The patient has an NG tube in place. The patient is a DO NOT RESUSCITATE patient. I did have a conversation with the family members yesterday. The patient's overall prognosis remains poor. Labs include a white count 10.6, hemoglobin 11.9, hematocrit 36.4, and platelet count 149,000. Sodium 148, potassium 4.1, chlorides 115, CO2 24, BUN 44, and creatinine 0.79. Calcium 8.2. AST 596. ALT 331. Pro-calcitonin level was 0.36. Albumin is only 2. Urine culture was positive for Escherichia coli, Klebsiella pneumoniae, and enterococcus faecium. Objective - Vital Signs Vital signs: Vital Signs Temp 101 F H 09/11/23 08:40 Pulse 105 H 09/11/23 08:40 Resp 29 H 09/11/23 08:40 BP 118/50 09/11/23 08:40 Pulse Ox 92 L 09/11/23 11:17 FiO2 Intake & Output 09/10/23 09/11/23 09/11/23 18:59 06:59 18:59 Output Total 1400 700 Balance -1400 -700 Output: Urine 1400 700 Other: Voiding Method Indwelling Catheter Indwelling Catheter Indwelling Catheter - Exam [id number] respiratory distress, currently on a nonrebreather mask. The patient is very poorly responsive. HEENT examination is grossly unremarkable. Neck supple. Full range of motion. No adenopathy thyromegaly or neck vein distention. Cardiovascular examination reveals regular rhythm rate. S1-S2 normal. No S3 or S4. No discernible murmur noted. Heart sounds are distant. Heart rate 105 bpm. Lungs reveal coarse bilateral rhonchi. No wheezes or crackles. Respiratory r ate 30 breaths per minute. Saturations are 90% on a nonrebreather. Abdomen soft, without bowel sounds. Extremities are intact. No cyanosis clubbing or edema. Skin is without rash or lesion. Neurologic examination cannot be evaluated at this time. - Labs CBC & Chem 7: 09/11/23 07:04 09/11/23 07:04 Labs: Abnormal Lab Results - Last 24 Hours (Table) 09/10/23 09/10/23 09/11/23 Range/Units 11:30 18:32 07:04 RBC 3.69 L (4.30-5.90) m/uL Hgb 11.9 L (13.0-17.5) gm/dL Hct 36.4 L (39.0-53.0) % RDW 17.3 H (11.5-15.5) % Plt Count 149 L (150-450) k/uL Neutrophils # 9.4 H (1.3-7.7) k/uL Lymphocytes # 0.9 L (1.0-4.8) k/uL Sodium (137-145) mmol/L Chloride (98-107) mmol/L BUN (9-20) mg/dL Glucose (74-99) mg/dL POC Glucose (mg/dL) 137 H 154 H (70-110) mg/dL Calcium (8.4-10.2) mg/dL AST (17-59) U/L ALT (4-49) U/L Alkaline Phosphatase (38-126) U/L Total Protein (6.3-8.2) g/dL Albumin (3.5-5.0) g/dL 09/11/23 Range/Units 07:04 RBC (4.30-5.90) m/uL Hgb (13.0-17.5) gm/dL Hct (39.0-53.0) % RDW (11.5-15.5) % Plt Count (150-450) k/uL Neutrophils # (1.3-7.7) k/uL Lymphocytes # (1.0-4.8) k/uL Sodium 148 H (137-145) mmol/L Chloride 115 H (98-107) mmol/L BUN 44 H (9-20) mg/dL Glucose 137 H (74-99) mg/dL POC Glucose (mg/dL) (70-110) mg/dL Calcium 8.2 L (8.4-10.2) mg/dL AST 596 H (17-59) U/L ALT 331 H (4-49) U/L Alkaline Phosphatase 150 H (38-126) U/L Total Protein 4.6 L (6.3-8.2) g/dL Albumin 2.0 L (3.5-5.0) g/dL Microbiology - Last 24 Hours (Table) 09/09/23 12:23 Blood Culture - Preliminary Blood Assessment and Plan Assessment: Altered mental status, obtunded, somnolent, likely secondary to dehydration, and sepsis. C. difficile infection following antibiotics for sinus infection. Urinary tract infection secondary to E. coli, Klebsiella pneumoniae, enterococcus VRE. Febrile illness secondary to above. Acute hypoxemic respiratory failure secondary to fluid volume overload and b ilateral pleural effusions. Failure to thrive requiring nasogastric tube with tube feedings. History of dementia. Plan: Plan dated 09/11/2023. The patient was seen and evaluated. I had conversation with the daughter and yesterday. I thought the prudent thing at this point, was palliative care. The patient is a DO NOT RESUSCITATE patient. Apparently the primary has had di scussions with the family members, and at this time, they want to proceed with antibiotics, nutrition, etc. We will continue to follow along. Prognosis is very poor. No additional recommendations are made. Labs, x-rays, and medications are reviewed. Time with Patient: Less than 30
--- NOTE | 2023-09-11 13:09 | P.PN ---
Subjective Progress Note Date: 09/11/23 Principal diagnosis: Reason for follow-up is C. difficile colitis Patient is a 83-year-old male with a past medical history significant for dementia anxiety depression and care home resident patient was sent to the from the care home concerning for generalized weakness and decreased talking, patient apparently has received antibiotic for sinus infection before the patient was brought to the hospital did have diarrhea and the stool for C. difficile came back positive.Patient noticed to have worsening of his respiratory status for which a nonrebreather has been placed and the patient has been transferred to the telemetry floor. On today's evaluation that is 09/11/2023, the patient did spike a fever this morning of 101 F again, the patient is lethargic however seems to be breathing more comfortably per the family at the bedside, the patient still requiring nonrebreather to maintain his sats, no worsening output in the fecal management system reported Patient did have white count has normalized to 10.6 creatinine 0.79, liver enzymes mildly elevated, did have a procalcitonin 0.36 Objective - Vital Signs Vital signs: Vital Signs Temp 101 F H 09/11/23 08:40 Pulse 105 H 09/11/23 08:40 Resp 29 H 09/11/23 08:40 BP 118/50 09/11/23 08:40 Pulse Ox 90 L 09/11/23 08:40 FiO2 Intake & Output 09/10/23 09/11/23 09/11/23 18:59 06:59 18:59 Output Total 1400 700 Balance -1400 -700 Output: Urine 1400 700 Other: Voiding Method Indwelling Catheter Indwelling Catheter Indwelling Catheter - Exam GENERAL DESCRIPTION: An elderly male lying in bed in no distress RESPIRATORY SYSTEM: Unlabored breathing , coarse breath sounds bilaterally HEART: S1 S2 regular rate and rhythm , ABDOMEN: Soft , no tenderness EXTREMITIES: No edema feet - Labs CBC & Chem 7: 09/11/23 07:04 09/11/23 07:04 Labs: Abnormal Lab Results - Last 24 Hours (Table) 09/10/23 09/10/23 09/10/23 Range/Units 07:35 07:36 11:30 WBC 14.24 H (4.50-10.00) X 10*3/uL RBC 3.97 L (4.40-5.60) X 10*6/uL Hgb 12.4 L (13.0-17.0) g/dL Hct 37.0 L (39.6-50.0) % RDW 19.2 H (11.5-14.5) % Plt Count (150-450) k/uL Neutrophils # (1.3-7.7) k/uL Lymphocytes # (1.0-4.8) k/uL Sodium (137-145) mmol/L Chloride (98-107) mmol/L BUN (9-20) mg/dL Glucose (74-99) mg/dL POC Glucose (mg/dL) 137 H (70-110) mg/dL Calcium (8.4-10.2) mg/dL AST (17-59) U/L ALT (4-49) U/L Alkaline Phosphatase (38-126) U/L Total Protein (6.3-8.2) g/dL Albumin (3.5-5.0) g/dL Procalcitonin 0.36 H (0.02-0.09) ng/mL 09/10/23 09/11/23 09/11/23 Range/Units 18:32 07:04 07:04 WBC (4.50-10.00) X 10*3/uL RBC 3.69 L (4.40-5.60) X 10*6/uL Hgb 11.9 L (13.0-17.0) g/dL Hct 36.4 L (39.6-50.0) % RDW 17.3 H (11.5-14.5) % Plt Count 149 L (150-450) k/uL Neutrophils # 9.4 H (1.3-7.7) k/uL Lymphocytes # 0.9 L (1.0-4.8) k/uL Sodium 148 H (137-145) mmol/L Chloride 115 H (98-107) mmol/L BUN 44 H (9-20) mg/dL Glucose 137 H (74-99) mg/dL POC Glucose (mg/dL) 154 H (70-110) mg/dL Calcium 8.2 L (8.4-10.2) mg/dL AST 596 H (17-59) U/L ALT 331 H (4-49) U/L Alkaline Phosphatase 150 H (38-126) U/L Total Protein 4.6 L (6.3-8.2) g/dL Albumin 2.0 L (3.5-5.0) g/dL Procalcitonin (0.02-0.09) ng/mL Microbiology - Last 24 Hours (Table) 09/09/23 12:23 Blood Culture - Preliminary Blood Assessment and Plan (1) C. 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 difficile is positive however clinically doubt C. difficile by itself responsible for his mental status changes 3-patient to continue with vancomycin 125 mg p.o. every 6 hours, 4-patient did have a negative HSV serology, that will make HSV encephalitis less likely, acyclovir was discontinued 5patient did have worsening of his respiratory status has developed a new fever high clinical suspicion for possible aspiration pneumonia blood culture has been obtained, which are currently pending patient did have normalization of his white count we will continue the patient on Zosyn Multiple family members at the bedside questions were answered Prognosis remains to be guarded Dictation was produced using [employer] software. please excuse any grammatical, word or spelling errors. Time with Patient: Less than 30
--- NOTE | 2023-09-12 08:26 | P.PN ---
Subjective Progress Note Date: 09/11/23 09/11/2023: Patient was seen for a follow-up. Patient's grandson was present. Patient's family had a discussion and they decided to make patient hospice/comfort care. 09/10/2023: Patient was seen for follow-up. Patient's other daughter, and patient's were both present today. Patient's family mentions that he has only mild dementia, although patient is on Aricept and Namenda. He recognizes all children and grandchildren. Patient's daughter mentions that he can walk with a walker, although he uses wheelchair as well. Patient clinically appears to be getting worse. He is more obtunded, requiring high FiO2 with face mask. 09/09/2023: Patient was seen for a follow-up. Patient clinically not improved. I spoke to patient's and daughter personally. They informed the patient has been wheelchair bound for last 2 years. This is related to combination of his back issues, Parkinson's and dementia. Patient does have dementia as well, however he was conversational before he got sick. Now he cannot hold any conversation. 09/08/2023: Patient was seen for a follow-up. Patient essentially unchanged. 09/07/2023: Patient initially seen by Dr. Garland Haro. Please refer to his note for details. Patient is a 83-year-old male with Parkinson's who has recent acute sinusitis and since then has confusion. Patient could not get MRI because of head position so needs to be ordered once condition improves. EEG was negative for seizures. Dr. Haro ordered repeat CT head. Some of the work-up during this hospital visit consisted of: Patient is afebrile. Initial wbc is 12K and repeat is 10K Sodium is 140--151, creatinine is 0.73. BUN is 52, plasma lactate vein is 2.1. Calcium is 8.2, magnesium 2.6 AST ALT is within normal limits Vitamin B12: 2537 Serum folate 24.80 Ammonia 9 TSH: 0.514 u/a seems negative for UTI SARS-COV2, Influenza A/B and RSV PCR is not detected. CT head is reported as no acute intracranial hemorrhage or midline shift. There is mild to moderate diffuse-age related cerebral atrophy and chronic small vessel ischemic change redemostrated. No significant change from prior. I personally reviewed the CT of the head and there is no acute subacute ischemia. There is no mass effect. There is no acute or subacute bleed. Routine EEG: As abnormal. The background slowing is suggestive of moderate encephalopathy. Otherwise there is no focal slowing, epileptiform discharges or seizure on the EEG. Objective - Vital Signs Vital signs: Vital Signs Temp 101 F H 09/11/23 08:40 Pulse 105 H 09/11/23 08:40 Resp 29 H 09/11/23 08:40 BP 118/50 09/11/23 08:40 Pulse Ox 92 L 09/11/23 11:17 FiO2 Intake & Output 09/10/23 09/11/23 09/11/23 18:59 06:59 18:59 Output Total 1400 700 Balance -1400 -700 Output: Urine 1400 700 Other: Voiding Method Indwelling Catheter Indwelling Catheter Indwelling Catheter - Exam Patient is an elderly male, who is laying in the bed, obtunded. His mouth is open. Patient appears to be tachypneic, and slight respiratory distress. Patient has oxygen by Ventimask. Patient does not respond to calling his name. He moans a little. He did very minimally squeeze the hand. He appears slightly warm. Patient did not cooperate with examination. - Labs CBC & Chem 7: 09/11/23 07:04 09/11/23 07:04 Labs: Abnormal Lab Results - Last 24 Hours (Table) 09/10/23 09/11/23 09/11/23 Range/Units 18:32 07:04 07:04 RBC 3.69 L (4.30-5.90) m/uL Hgb 11.9 L (13.0-17.5) gm/dL Hct 36.4 L (39.0-53.0) % RDW 17.3 H (11.5-15.5) % Plt Count 149 L (150-450) k/uL Neutrophils # 9.4 H (1.3-7.7) k/uL Lymphocytes # 0.9 L (1.0-4.8) k/uL Sodium 148 H (137-145) mmol/L Chloride 115 H (98-107) mmol/L BUN 44 H (9-20) mg/dL Glucose 137 H (74-99) mg/dL POC Glucose (mg/dL) 154 H (70-110) mg/dL Calcium 8.2 L (8.4-10.2) mg/dL AST 596 H (17-59) U/L ALT 331 H (4-49) U/L Alkaline Phosphatase 150 H (38-126) U/L Total Protein 4.6 L (6.3-8.2) g/dL Albumin 2.0 L (3.5-5.0) g/dL Microbiology - Last 24 Hours (Table) 09/09/23 12:23 Blood Culture - Preliminary Blood Assessment and Plan Assessment: This is an 83-year-old gentleman with history of Parkinson's disease, dementia who presents because of generalized weakness and confusion. Per the nurse was reported to her that this has been going on for the last 1 -2 weeks and per family members had recent sinus infection and was given abx then became confused. Metabolic Encephalopathy which is worsening. High temperature, leukocytosis, probable aspiration pneumonia. Hypernatremia, improved. Urine cultures growing E. coli, klebsiella pneumonia, and enterococcus faecium VRE. Discussed with infectious disease, appears contamination, as his UA is completely benign. Acute kidney injury, resolved Elevated hepatic enzymes, worsening C. difficile colitis Hypermagnesemia mild. Parkinson's disease for about 6 months Demenia for past couple years but is able to feed self, communicate and somewhat manages to walk with walker, although has been using wheelchair for last 2 years. 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 Elevated plasma lactic acid, resolved. Plan: Patient continues to be severely encephalopathic. Patient probably has aspiration pneumonia. No evidence of UTI as per ID, as urinalysis is completely benign. The positive cultures is likely from contamination. Patient does have C. difficile colitis and toxic metabolic encephalopathy. Lumbar puncture was attempted 09/09/2023 but was technically difficult due to probable spinal curvature. Lumbar puncture by interventional radiology was recommended, but they are not available. Consultation with anesthesia was initiated yesterday. However family declined lumbar puncture, and wanted patient to be comfort care. Anesthesia consult was canceled. Family wanted to see if patient would respond to a new antibiotic Zosyn, which apparently he has not . Patient started on Zosyn for possible aspiration pneumonia, and also on vancomycin orally for C. difficile colitis. Patient has not improved in 24 hours. Family decided hospice care. Patient is on home medication for Aricept and Namenda We'll defer the rest of the medical management to the primary team. Patient is a no CODE STATUS. Patient is hospice/comfort care. Discussed with grandson. Neurology will sign off.
--- NOTE | 2023-09-14 16:35 | CDI ---
Documentation Clarification Form Date: 09/14/2023 04:19:26 PM From: Stacey Caceres Phone: Admit Date: 09/04/2023 05:07:00 PM Patient Name: Davin Simons Visit Number: [id number] Discharge Date: 09/11/2023 01:43:00 PM ATTENTION: The Clinical Documentation Specialists (CDI) and [facility] Coding Staff appreciate your assistance in clarifying documentation. Please respond to the clarification below the line at the bottom and electronically sign. The CDI & [facility] Coding staff will review the response and follow-up if needed. Please note: Queries are made part of the Legal Health Record. If you have any questions, please contact the author of this message via ITS. Dr. Radha Collins Dehydrationwithacute kidney injury is documented per H&P and patient is C. difficile colitis per 09/07 Progress Note. Please clarify if there is a relationship between the diagnoses. History/Risk Factors: 83yo M, tox/met enceph, asp. PNA, UTI w VRE, GABRIELLA, HTN, C diff post Abx, Parkinsons w dementia Clinical Indicators: patient did recently get exposed to antibiotic for sinus infection and now has developeddiarrheaand stool for C. difficile is positive Treatment: vancomycin 125 mg p.o. every 6 hours to continue. Admitted to medical floor. He was started on gentle IV hydration. Home medications reviewed and reordered. Pt did not improve and was made comfort care. Please clarify the relationship, if any, which is clinically appropriate for this patient: [ x ] Dehydration is due to Enterocolitis due to Clostridium difficile [ ] Dehydration is not due to Enterocolitis due to Clostridium difficile [ ] Other explanation of Dehydration (please specify) [ ] Unable to determine (no explanation for clinical findings) (Template Last Revised: October 2020) MTDD
--- NOTE | 2023-09-16 10:39 | P.DS ---
Providers Date of admission: 09/04/23 17:07 Expected date of discharge: 09/11/23 Attending physician: Radha Collins Consults: 09/04/23 10:34 Consult Physician Routine Consulting Provider: Garland Haro Consult Reason/Comments: [facility] [place] Do you want consulting provider notified?: Yes 09/04/23 13:18 Consult Physician Routine Consulting Provider: Garland Haro Consult Reason/Comments: review Parkinson medications, difficulty swallowing Do you want consulting provider notified?: Yes 09/06/23 12:03 Consult Physician Routine Consulting Provider: Leigha Starr Consult Reason/Comments: [facility]. Do you want consulting provider notified?: Yes 09/10/23 11:56 Consult Physician Urgent Consulting Provider: Vinayak Haro Consult Reason/Comments: increased o2 demand, increased RR Do you want consulting provider notified?: Yes Primary care physician: Radha Collins [facility] Course: discharge diagnosis Acute mental status changes Dehydration with acute kidney injury C. diff colitis Underlying history of Parkinson disease Underlying history of peptic ulcer disease Underlying history of hypertension Underlying history of dementia Underlying history of anemia Dysphasia. NG tube has been placed patient started on tube feedings Elevated liver enzymes. Liver ultrasound ordered Hospital course Davin Simons, is an 83-year-old male patient, resident of a assisted, who presented to [facility] emergency room, with a chief complaint of generalized weakness and acute mental status changes, patient was noticed to be somnolent, and nonverbal at the assisted, he was sent to emergency room for evaluation. He was evaluated in the emergency room vital examination on presentation revealed a temperature of 97.8 pulse 72 respiration 20 blood pressure 100/64 pulse ox 95% on room air Laboratory data revealed a white blood count of 12.0 hemoglobin 15.6 platelet count 234 sodium 140 potassium 3.9 chloride 110 CO2 20 BUN 52 creatinine 0.73 Testing in the emergency room revealed chest x-ray done in the emergency room revealed lower lung volumes no acute cardiopulmonary disease process and COPD changes, EKG done in the emergency room revealed sinus rhythm with occasional ventricular premature complexes and moderate intraventricular conduction delay, computed tomography scan of the brain revealed no acute intracranial hemorrhage or midline shift. Patient was admitted to medical floor for further evaluation and treatment On 09/04/2023 patient currently resting in bed remains confused with limited responsiveness. Repeat lactic acid 1.8. Sodium increasing to 148. Fluids adjusted to D5 half-normal at 75. Bun 42.2 creatinine 0.8. Per nursing staff patient failed swallow eval will consult speech therapy services to further evaluate. Patient's son at bedside. Requesting a neurology consult for concerns of dementia. Vital signs temp 97.9, heart rate 89, respiratory rate 18, blood pressure 150/75 with pulse ox of 95% on room air On 09/05/2023 patient was seen and examined on the medical floor he is somnolent responsive to stimuli, in no apparent distress, patient is nothing by mouth, IV fluid was increased to 100 mL per hour, family is at the bedside in case was discussed in details with them, at this time they are agreeable for NG tube placement for medication and nutrition, will follow up closely on progress. On 09/06/2023 patient remains somnolent. Patient's son at bedside. NG tube was placed patient started on tube feedings. Discussed with nursing staff to assess for urinary retention and place Barr catheter if needed to assess urinary output. Patient remains on half normal saline. Neurology services following. On 09/07/2023 patient was seen and examined on the medical floor he is somnolent, less responsive today, stools was positive for C. diff, patient is currently receiving vancomycin through NG tube, he is also receiving his Parkinson disease medication and nutrition through NG tube, patient has IV fluid, he has a stool management system, prognosis is guarded, no family members available today. On 09/08/2023 patient was seen and examined on the medical floor, he is somnolent and responsive, in no apparent distress, he has NG tube in, and receiving medication and nutrition, he also has IV fluid, he is still having severe diarrhea, he is maintained on oral vancomycin through his NG tube, Questran was added, today patient has evidence of elevated liver enzymes, Tylenol Aricept and Namenda were held, patient blood pressure is on the low side, he will receive a dose of IV fluid, normal saline, will continue to monitor very closely. Son is at the bedside, different issues regarding his father's health were discussed in details. On 09/09/2023 patient remains on medical floor somnolent. liver enzymes went up again today. Patient remains on by mouth vancomycin infectious disease and neurology services following. Tentative plans for lumbar puncture. Repeat blood culture and lactic acid been ordered we'll also order liver ultrasound due to elevated liver enzymes. Current vital signs temp 97.9, heart rate 108, respiratory rate 18, blood pressure 97/50 On 09/10/2023 patient was seen and examined on the telemetry floor, last night he had episodes of worsening shortness of breath, he received IV Lasix, IV albumin, chest x-ray and ABG were done, 18 was called during the night and patient was transferred to telemetry. Today patient remains somnolent and responsive, he is maintained on oxygen mask. Vital exam reveals a temperature of 101.2 pulse 100 respiration 27 blood pressure 109/59 pulse ox 91% on 15 L nonrebreather mask white blood count is 14.4 hemoglobin 12.4 platelet count 164 AST 379 ALT 2050 alkaline phosphatase 144. Neurology and infectious disease are following, input reviewed. We will add consult for cardiology and pulmonary, prognosis is poor. Family meeting this morning, CODE STATUS was changed to no code. On 09/11/2022 for patient continued to decline currently on Ventimask. Family at bedside discussion was held requesting hospice consult at this time. Current vital signs temp 101.2, heart 106, respiratory rate 28, blood pressure 133/71 with pulse ox of 90% on 15 L. Patient remains unresponsive Family has decided to proceed with hospice care at this time Patient Condition at Discharge: Poor Plan - Discharge Summary Discharge Rx Participant: No New Discharge Prescriptions: No Action Simethicone [Gas-X] 125 mg PO ACHS PRN PRN Reason: Gi Upset Ferrous Sulfate [Feosol] 325 mg PO DAILY 30 Days #30 tab guaiFENesin [guaiFENesin Oral Solution] 200 mg PO Q4H PRN PRN Reason: Cough Acetaminophen [Tylenol] 650 mg PO Q4H PRN PRN Reason: GENERAL DISCOMFORT Sucralfate [Carafate] 1 gm PO AC-TID@08,12,17 Ocusoft Lid Scrub Plus External Pad (Eyelid Cleansers) 1 applic BOTH EYES HS Aspirin 81 mg PO DAILY Acetaminophen [Tylenol Arthritis] 650 mg PO HS Donepezil HCl [Aricept] 10 mg PO HS Multivitamins, Thera [Multivitamin (formulary)] 1 tab PO DAILY Omeprazole [PriLOSEC] 20 mg PO HS Carbidopa-Levodopa 25-100 mg [Sinemet 25-100] 1 tab PO BID@0800,1200 Memantine [Namenda] 5 mg PO BID polyethylene glycoL 3350 [Miralax] 17 gm PO DAILY Lactose-Reduced Food [Ensure Plus] 237 ml PO DAILY Ketotifen Fumarate [Alaway] 1 drop BOTH EYES HS Menthol [Biofreeze] 1 applic TOPICAL BID Discharge Medication List Simethicone [Gas-X] 125 mg PO ACHS PRN 06/03/18 [History] Acetaminophen [Tylenol Arthritis] 650 mg PO HS 08/12/22 [History] Donepezil HCl [Aricept] 10 mg PO HS 08/12/22 [History] Multivitamins, Thera [Multivitamin (formulary)] 1 tab PO DAILY 01/22/23 [History] Ferrous Sulfate [Feosol] 325 mg PO DAILY 30 Days #30 tab 03/20/23 [Rx] Acetaminophen [Tylenol] 650 mg PO Q4H PRN 09/03/23 [History] Aspirin 81 mg PO DAILY 09/03/23 [History] Carbidopa-Levodopa 25-100 mg [Sinemet 25-100] 1 tab PO BID@0800,1200 09/03/23 [History] Ketotifen Fumarate [Alaway] 1 drop BOTH EYES HS 09/03/23 [History] Lactose-Reduced Food [Ensure Plus] 237 ml PO DAILY 09/03/23 [History] Memantine [Namenda] 5 mg PO BID 09/03/23 [History] Menthol [Biofreeze] 1 applic TOPICAL BID 09/03/23 [History] Ocusoft Lid Scrub Plus External Pad (Eyelid Cleansers) 1 applic BOTH EYES HS 09/03/23 [History] Omeprazole [PriLOSEC] 20 mg PO HS 09/03/23 [History] Sucralfate [Carafate] 1 gm PO AC-TID@08,12,17 09/03/23 [History] guaiFENesin [guaiFENesin Oral Solution] 200 mg PO Q4H PRN 09/03/23 [History] polyethylene glycoL 3350 [Miralax] 17 gm PO DAILY 09/03/23 [History] Follow up Appointment(s)/Referral(s): Radha Collins MD [Primary Care Provider] - 1-2 days Discharge Disposition: [facility]CH TO HOSPICE MED FACILTY
== END 2023-09-11 13:43 | disposition hospice, inpatient (51) | DRG 371 ==
LOC: EC 09:26 → 6NMEDSUR 11:20 → OBSVTOIN 09-04 17:07 → 3SCARD 09-10 01:53
PROVIDERS: ADMIT Internal Medicine; ATTEND Internal Medicine
PROC: 3E0G76Z Introduction of Nutritional Substance into Upper GI, Via Natural or Artificial Opening (ICD-10-PCS; principal; 2023-09-09)
PROC: 00JU3ZZ Inspection of Spinal Canal, Percutaneous Approach (ICD-10-PCS; 2023-09-09)
DX: A04.72 Enterocolitis due to Clostridium difficile, not specified as recurrent (principal); A41.9 Sepsis, unspecified organism; J96.01 Acute respiratory failure with hypoxia; J69.0 Pneumonitis due to inhalation of food and vomit; G92.8 Other toxic encephalopathy; E43 Unspecified severe protein-calorie malnutrition; N17.9 Acute kidney failure, unspecified; E87.0 Hyperosmolality and hypernatremia; J90 Pleural effusion, not elsewhere classified; E87.1 Hypo-osmolality and hyponatremia; F02.A3 Dementia in other diseases classified elsewhere, mild, with mood disturbance; F02.A4 Dementia in other diseases classified elsewhere, mild, with anxiety; Z68.1 Body mass index [BMI] 19.9 or less, adult; L89.301 Pressure ulcer of unspecified buttock, stage 1; E83.41 Hypermagnesemia; R62.7 Adult failure to thrive; G20.A1 Parkinson's disease without dyskinesia, without mention of fluctuations; I11.9 Hypertensive heart disease without heart failure; D64.9 Anemia, unspecified; Z66 Do not resuscitate; Z53.8 Procedure and treatment not carried out for other reasons; T36.95XA Adverse effect of unspecified systemic antibiotic, initial encounter; R74.8 Abnormal levels of other serum enzymes; I49.3 Ventricular premature depolarization; I45.9 Conduction disorder, unspecified; E86.0 Dehydration; M43.9 Deforming dorsopathy, unspecified; R47.02 Dysphasia; M47.9 Spondylosis, unspecified; M40.209 Unspecified kyphosis, site unspecified; E87.70 Fluid overload, unspecified; Z87.11 Personal history of peptic ulcer disease; Z79.82 Long term (current) use of aspirin; Z79.899 Other long term (current) drug therapy; Z51.5 Encounter for palliative care; Z91.018 Allergy to other foods; Z11.52 Encounter for screening for COVID-19; Z99.3 Dependence on wheelchair; Z79.1 Long term (current) use of non-steroidal anti-inflammatories (NSAID)
CPT/HCPCS: 36415; 36600; 70450; 71045; 71046; 76705; 80048; 80053; 81003; 82140; 82607; 82746; 82805; 83605; 83735; 83880; 84145; 84443; 84484; 85025; 85610; 85652; 85730; 86140; 86694; 86695; 86696; 87040; 87077; 87086; 87186; 87324; 87636; 93005; 94760; 95816; 96361; 96374; 99285

== ENCOUNTER 2023-09-11 13:35 | Inpatient (IN) | payer MEDICAID ==
[2023-09-11] MEDS ORDERED: LORazepam 2 MG/ML INJ IV PRN (13:39)
[2023-09-11] MEDS ORDERED: DRY MOUTH SPRAY 44.3 SPRAY/44.3 ML SPRAY MUCOUS MEM PRN (13:39)
[2023-09-11] MEDS ORDERED: ATROPINE OPHTH SOLN 1% 5ML BTL SUBLINGUAL PRN (13:39)
[2023-09-11] MEDS ORDERED: ONDANSETRON 4 MG/2 ML VIAL IVP PRN (13:39)
[2023-09-11] MEDS ORDERED: GLYCOPYRROLATE 0.2 MG/ML 2 ML VIAL IVP PRN (13:39)
[2023-09-11] MEDS ORDERED: ACETAMINOPHEN SUPPOSITORY 650 MG SUPP RECTAL PRN (13:39)
[2023-09-11] MEDS ORDERED: SCOPOLAMINE 1 MG/72 HR PATCH TRANSDERM SCH (13:45)
[2023-09-11] MEDS: MORPHINE SULFATE (100 MG/2 ML) 100 MG in SODIUM CHLORIDE 0.9% 100 ML IV SCH (14:58)
[2023-09-11] MEDS: MORPHINE SULFATE 4 MG/ML SYRINGE IV PRN ×2 (15:50→16:34)
[2023-09-11 15:53] VITALS: BP 116/98; TEMP 99.8
[2023-09-12] MEDS: MORPHINE SULFATE (100 MG/2 ML) 100 MG in SODIUM CHLORIDE 0.9% 100 ML IV SCH (02:00)
[2023-09-12 04:39] VITALS: PULSE 0; RESP 0
== END 2023-09-12 05:42 | disposition expired | DRG 951 ==
LOC: 3SCARD 13:51
PROVIDERS: ADMIT Internal Medicine; ATTEND Internal Medicine
DX: Z51.5 Encounter for palliative care (principal); A41.9 Sepsis, unspecified organism; J96.01 Acute respiratory failure with hypoxia; G92.8 Other toxic encephalopathy; A04.72 Enterocolitis due to Clostridium difficile, not specified as recurrent; N17.9 Acute kidney failure, unspecified; Z66 Do not resuscitate